=== PATIENT | female | born 1955 | race Caucasian/White ===

== ENCOUNTER 2020-12-11 03:52 | Outpatient (CLI) | payer MEDICARE | END 2020-12-11 03:53 | disposition EMS.NT | LOC: EMS 03:52 | DX: R00.0 Tachycardia, unspecified (principal) ==

== ENCOUNTER 2020-12-11 12:15 | Outpatient (CLI) | payer MEDICARE | END 2020-12-11 12:16 | disposition critical access hospital (66) | LOC: EMS 12:15 | DX: R56.9 Unspecified convulsions (principal) | CPT/HCPCS: A0425; A0429 ==

== ENCOUNTER 2020-12-11 12:39 | Observation (INO) | payer MEDICAID, MEDICARE ==
[2020-12-11] MEDS ORDERED: SODIUM CHLORIDE 0.9% 1,000 ML IV STA (12:48)
[2020-12-11] MEDS ORDERED: LORazepam 2 MG/ML VIAL IVP STA (12:49)
[2020-12-11] MEDS ORDERED: THIAMINE INJ 100 MG in SODIUM CHLORIDE 0.9% 50 ML IV STA (12:49)
[2020-12-11 13:12] LABS: INR 1.2 (0.8-1.2); PT - PROTHROMBIN TIME 13.6 secs (9.9-12.6)
[2020-12-11] MEDS ORDERED: TETANUS/DIPHTHERIA/PERTUSSIS 0.5 ML SYRINGE IM ONE (13:16)
--- NOTE | 2020-12-11 13:17 | ED Physician Documentation ---
History of Present Illness - Stated complaint Stated Complaint: MHE - Chief complaint Chief Complaint: General - History obtained from History obtained from: Patient, EMS - Additonal information Additional information: 65-year-old woman presents by ambulance. Reportedly stopped drinking 3 days ago and had a seizure today. She also complains of abdominal fullness for the last 3 months. She is somewhat confused. Has skin tears on the dorsum of the left hand from the seizure. No other obvious injuries. Review of Systems Unable to obtain: Confused PD PAST MEDICAL HISTORY - Present Medications Home Medications: Ambulatory Orders Medication Instructions Recorded Confirmed Furosemide [Lasix] 40 mg PO DAILY 12/11/20 12/11/20 Spironolactone [Aldactone] 100 mg PO DAILY 12/11/20 12/11/20 amLODIPine [Norvasc] 10 mg PO DAILY 12/11/20 12/11/20 traZODone [Desyrel] 150 mg PO HS 12/11/20 12/11/20 - Allergies Allergies/Adverse Reactions: Allergies Allergy/AdvReac Type Severity Reaction Status Date / Time No Known Drug Allergies Allergy Verified 12/11/20 12:57 PD ED PE NORMAL - Vitals Vital signs reviewed: Yes - General General: Other (Alert and oriented to person and place, she knows the year but not the month or date. She seems slightly confused.) - HEENT HEENT: PERRL, EOMI, Other (Dry mucous membranes) - Neck Neck: Supple, no meningeal sign, No bony TTP - Cardiac Cardiac: RRR, No murmur - Respiratory Respiratory: No respiratory distress, Clear bilaterally - Abdomen Abdomen: Normal bowel sounds, Soft, Other (Somewhat distended with positive fluid wave) - Back Back: No CVA TTP, No spinal TTP - Derm Derm: Normal color, Warm and dry - Extremities Extremities: No deformity (2 skin tears on the dorsum of the left hand), Other (Mild lower extremity pitting pedal edema, symmetric.) - Neuro Neuro: No motor deficit, No sensory deficit, Normal speech Results - Vitals Vitals: Vital Signs - 24 hr 12/11/20 12:54 Temperature 36.7 C Heart Rate 112 H Respiratory 18 Rate Blood Pressure 135/79 H O2 Saturation 99 Oxygen O2 Source Room air - EKG (time done) 1348 Rate: Rate (enter#) (103) Rhythm: Sinus tachycardia (w pacs) [place]: Normal Intervals: Normal SD QRS: Normal Ischemia: Normal ST segments - Labs Labs: Laboratory Tests 12/11/20 12/11/20 12/11/20 13:02 13:02 13:02 WBC 9.0 RBC 4.17 L Hgb 13.4 Hct 37.1 MCV 89.0 MCH 32.1 H MCHC 36.1 H RDW 13.0 Plt Count 120 L MPV 8.9 Neut # (Auto) 8.1 H Lymph # (Auto) 0.3 L [place] # (Auto) 0.5 Eos # (Auto) 0.0 Baso # (Auto) 0.0 Absolute Nucleated RBC 0.00 Nucleated RBC % 0.0 Manual Slide Review Indicated RBC Morph Micro Appear 2+ ANISOCYTOSIS PT 13.6 H INR 1.2 Sodium 124 L Potassium 3.1 L Chloride 84 L Carbon Dioxide 24 Anion Gap 16.0 H BUN 15 Creatinine 0.8 Estimated GFR (MDRD) 72 L Glucose 179 H Calcium 9.4 Phosphorus 2.7 Magnesium 2.0 Total Bilirubin 1.3 H AST 39 ALT 32 Alkaline Phosphatase 48 Troponin I High Sens Total Protein 8.1 Albumin 4.8 Globulin 3.3 Albumin/Globulin Ratio 1.5 Lipase 30 Ethyl Alcohol < 5.0 12/11/20 13:02 WBC RBC Hgb Hct MCV MCH MCHC RDW Plt Count MPV Neut # (Auto) Lymph # (Auto) [place] # (Auto) Eos # (Auto) Baso # (Auto) Absolute Nucleated RBC Nucleated RBC % Manual Slide Review RBC Morph Micro Appear PT INR Sodium Potassium Chloride Carbon Dioxide Anion Gap BUN Creatinine Estimated GFR (MDRD) Glucose Calcium Phosphorus Magnesium Total Bilirubin AST ALT Alkaline Phosphatase Troponin I High Sens 8.5 Total Protein Albumin Globulin Albumin/Globulin Ratio Lipase Ethyl Alcohol Procedures - Laceration (location) L hand Length in cm: 6 Wound type: Superficial (2 skin tears), Clean Wound preparation: Irrigated copiously NS Skin layer closure: Dermabond, Steri strips Other: Tetanus booster given PD MEDICAL DECISION MAKING - ED course ED course: 65-year-old woman with alcoholism altered mental status, seizure this morning related to withdrawal of alcohol. She has mild ascites but also appears to be hypovolemic. Noted to be significantly hyponatremic at 124 of unclear intensity and given the persistent confusion spoke with Dr. Castelan for admission. Departure - Departure Disposition: 66 [facility] DC/Xfer Clinical Impression: Metabolic encephalopathy, Hypokalemia, Hyponatremia Alcohol withdrawal seizure Qualifiers: Complication of substance-induced condition: uncomplicated Qualified Code(s): F10.230 - Alcohol dependence with withdrawal, uncomplicated Condition: Serious Discharge Date/Time: 12/11/20 15:14
[2020-12-11 13:20] LABS: ALBUMIN 4.8 g/dL (3.2-5.5); ALBUMIN/GLOBULIN RATIO 1.5 (1.0-2.2); ALKALINE PHOSPHATASE 48 IU/L (42-121); ALT ALANINE AMINOTRANSFERASE 32 IU/L (10-60); AST ASPARTATE AMINOTRANSFERASE 39 IU/L (10-42); BILIRUBIN,TOTAL 1.3 mg/dL (0.2-1.0); BUN - BLOOD UREA NITROGEN 15 mg/dL (6-20); CALCIUM 9.4 mg/dL (8.5-10.3); CARBON DIOXIDE - CO2 24 mmol/L (21-32); CHLORIDE 84 mmol/L (101-111); CREATININE 0.8 mg/dL (0.4-1.0); ETOH - ETHANOL < 5.0 mg/dL; GFR - MDRD 72 (>89); GLUCOSE 179 mg/dL (70-100); LIPASE 30 U/L (22-51); PHOSPHORUS 2.7 mg/dL (2.5-4.6); POTASSIUM 3.1 mmol/L (3.5-5.0); SODIUM 124 mmol/L (135-145); TOTAL PROTEIN 8.1 g/dL (6.7-8.2)
[2020-12-11 13:27] LABS: BASOPHILS % (AUTO) 0.3 %; EOSINOPHILS % (AUTO) 0.1 %; HCT - HEMATOCRIT 37.1 % (37.0-47.0); HGB - HEMOGLOBIN 13.4 g/dL (12.0-16.0); LYMPHOCYTES # (AUTO) 0.3 10^3/uL (1.5-3.5); LYMPHOCYTES % (AUTO) 3.2 %; MEAN CORPUSCULAR HEMOGLOBIN 32.1 pg (27.0-31.0); MEAN CORPUSCULAR HGB CONC 36.1 g/dL (32.0-36.0); MEAN PLATELET VOLUME 8.9 fL (7.9-10.8); MONOCYTES # (AUTO) 0.5 10^3/uL (0.0-1.0); MONOCYTES % (AUTO) 5.3 %; NEUTROPHILS # (AUTO) 8.1 10^3/uL (1.5-6.6); NEUTROPHILS % (AUTO) 90.5 %; PLT - PLATELET COUNT 120 10^3/uL (130-450); RED BLOOD COUNT 4.17 10^6/uL (4.20-5.40)
[2020-12-11 13:28] LABS: SLIDE REVIEW? Indicated
[2020-12-11 13:50] LABS: RBC MORPHOLOGY (MULTIPLE) 2+ ANISOCYTOSIS (NORMAL)
[2020-12-11] MEDS ORDERED: POTASSIUM CHLORIDE 20 MEQ TABLET PO STA (14:06)
[2020-12-11] MEDS ORDERED: ONDANSETRON ODT 4 MG TABLET TL PRN (14:13)
[2020-12-11] MEDS ORDERED: oxyCODONE 5 MG TABLET PO PRN (14:13)
[2020-12-11] MEDS ORDERED: SODIUM CHLORIDE FLUSH 0.9% 10 ML SYRINGE IVP PRN (14:13)
[2020-12-11] MEDS ORDERED: ACETAMINOPHEN 325 MG TABLET PO PRN (14:13)
[2020-12-11] MEDS ORDERED: ONDANSETRON 4 MG/2 ML VIAL IVP PRN (14:13)
--- NOTE | 2020-12-11 14:25 | HISTORY & PHYSICAL EXAMINATION ---
Chief Complaint - Chief Complaint Chief Complaint: seizure and confusion History of Present Illness - Admitted From Admitted From:: Home via EMS - History Obtained From Records Reviewed: [facility] History obtained from: Dr. Mcmillan Exam Limitations: none - History of Present Illness HPI Comment/Other: 65-year-old white female who is known for past medical history of alcohol abuse. Her social history is complicated in that she has a known history of bipolar disorder with suicidal ideation and also violent behavior toward her daughter when she is in a manic phase. She has been a lifelong drinker for as far back as her daughter can remember. Her favorite alcohol is beer and she will drink at least a sixpack a day, but she will not turn down bloody Nina's (sometimes 2) on top of the beer. She has lived on [facility] since 2010. Before that she was living in [place] and living with her mother off and on. Mom 8 or 9 years ago. With the of her mother, her mental health severely deteriorated and what ever control she had over her bipolar disorder disappeared. When she is not living with her daughter, she will live in a room for rent wherever she can find space. 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 Daughter states that mom is a very private person. She also gets paranoid and feels that someone is out to get her so she does not share a lot of her information with daughter. But by default, daughter is power of erisa attorney. The patient has not seen a physician in quite some time. She states that somehow mom still gets her medicine refilled without seeing a provider. Her prescriptions are filled at [facility]. The daughter states that part of her manic behavior is to suddenly decide something and move forward with that decision. With this current episode, she decided to stop drinking. The last 3 days have been pretty miserable for the family. The patient has not been sleeping, pacing all the time, and needing constant reassurance that someone was nearby. She has not been eating very much or drinking water very much. Even before the decision to stop drinking, the patient was starting to manifest symptoms of withdrawal first thing in the morning. She would wake up with nausea, diaphoresis, tremulousness. It would require a beer straightaway or a bloody Nina straightaway to make all of the symptoms go away. Then she stopped drinking 3 days ago. This morning she was sitting at the table, and her daughter was encouraging her to eat. The patient has a history of traumatic behavior and manipulative behavior so sometimes will pretend to be sick or pretend that she wants to kill herself. This morning she seemed to be tremulous, and with determination started using her right hand to use the fork to possibly stab her left hand. The daughter got up and took the fork out of her right hand. The patient's eyes then rolled back, the patient had a stuttering type of behavior, arms were then drawn up against her chest, elbows flexed, hands clawed and she fell to the floor with a tonic-clonic jerking movement. She has been hospitalized before for alcohol withdrawal seizures in [place] as well as been hospitalized for inpatient psychiatric issues especially when she had suicidal ideation. She was seen by ER physician and temperature is 36 7, pulse is 112, blood pressure 135/79, respirations 18 and 99% on room air. She is confused, slightly tremulous. Dry mucous membranes. Cardiovascular exam benign. 2 skin tears on the dorsum of her left hand and mild lower extremity pitting edema. Sodium is low at 124, potassium was low at 3.1. Anion gap is 16. Random glucose 179. Total bili 1.3. Troponin 8.5. INR is 1.2. White cell count is 9, hemoglobin 13.4. She received 1 mg of Ativan IV and the patient has been somnolent, snoring since then. Potassium orally was ordered but the patient has been too sedated to be able to take it. She is now placed in observation for her seizure, hypokalemia, confusion, hyponatremia. We hope to hydrate her over the next few hours, make sure she does not have another seizure. History - Past Medical History Cardiovascular: reports: Hypertension, High cholesterol, Atrial fibrillation, Murmur Respiratory: reports: None Neuro: reports: Headaches, Tremors Endocrine/Autoimmune: reports: None GI: reports: Cirrhosis (With occasionally her belly blowing up like a balloon) ALLOPATHIC DOCTOR: reports: Other () : reports: None HEENT: reports: None, Dental implants Psych: reports: Bipolar disorder Musculoskeletal: reports: None Derm: reports: None MRSA Hx?: No - Past Surgical History General: reports: Other (ventral hernia repair, [facility]) - Family & Social History Family History Comment/Other: Mom in her 70s of complications of emphysema. Dad in his 80s of unknown type of cancer. She was estranged from him. 2 brothers. Both are alive and have addiction problems. 1 daughter who is healthy without blood pressure, diabetes, heart attack, cancer or stroke. However she has PTSD from growing up with a bipolar mom. Living arrangement: At home Living Situation: With family Social History Notes: She used to smoke heavily and quit 4 years ago. She started smoking as far back as her daughter could remember. Probably in her teen years. She is now addicted to nicotine gum. Alcohol abuse is also been since her teen years. Again at this time it is a sixpack, occasionally 12 a day. Occasionally 2 bloody Nina's a day. 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 The last time she worked was 20 years ago. She was born in [place], then family moved to [place]. She lived in [place] the rest of her life until she came to [facility] in 2010. Her ex- lives on [facility] and. Daughter came to visit him. She then came to visit daughter. Everyone liked it so much they state. - POLST Patient has POLST: No POLST Status: Full Code Meds/Allgy - Home Medications Home Medications: Ambulatory Orders Medication Instructions Recorded Confirmed Furosemide [Lasix] 40 mg PO DAILY 12/11/20 12/11/20 Spironolactone [Aldactone] 100 mg PO DAILY 12/11/20 12/11/20 amLODIPine [Norvasc] 10 mg PO DAILY 12/11/20 12/11/20 traZODone [Desyrel] 150 mg PO HS 12/11/20 12/11/20 - Allergies Allergies/Adverse Reactions: Allergies Allergy/AdvReac Type Severity Reaction Status Date / Time No Known Drug Allergies Allergy Verified 12/11/20 12:57 Review of Systems - Constitutional Constitutional: reports: Other (History and review of systems is from daughter. The patient is somnolent after 1 mg of Ativan.) - Psychiatric Psychiatric: reports: Depression, Anxiety, Suicidal, Delusions, Hallucinations, Homicidal Prior Level of Functionality: The patient lives in her own part of the house with her daughter. She still pays her own bills, reluctantly does her own housekeeping such as changing the sheets and doing laundry. She does limited cooking and does feed herself. She needs to be prompted to take a bath but will do so. Exam - Vital Signs Reviewed Vital Signs: Yes Vital Signs: Vital Signs x48h Temp Pulse Resp BP Pulse Ox 12/11/20 12:54 36.7 C 112 H 18 135/79 H 99 - Physical Exam General Appearance: positive: Lethargic, Other (Somnolent, snoring, white female who looks older than stated age, teeth are removed. Response to sternal rub and will grimace and furrow her brow.) Eyes Bilateral: positive: PERRL (slow to dilate and constrict) ENT: positive: Dry mucous membranes (with open mouth breathing, no teeth), Other (eyebrows pencilled in) Neck: positive: No JVD. negative: Stiff neck Respiratory: positive: No respiratory distress, Other (snoring loudly). negative: Wheezes, Rales, Rhonchi Cardiovascular: positive: Regular rate & rhythm, Systolic murmur. negative: Gallop/S4 Peripheral Pulses: positive: 1+ Abdomen: positive: Non-tender, No organomegaly, Nml bowel sounds, No distention Skin: positive: Warm, Dry, Pallor Extremities: positive: Full ROM, No pedal edema Neurologic/Psychiatric: positive: Motor nml (She withdraws both hands, both feet to noxious stimuli. There does not appear to be evidence of plegia.), Other ( unresponsive to voice but does respond to painful stimuli.) Conclusion/Plan - Problem List (1) Metabolic encephalopathy Conclusion/Plan: Due to seizure, hyponatremia, possible brain effects of alcohol abuse, As well as the Ativan in the ER. Plan: Observation status Banana bag Observe for seizures and withdrawal (2) Alcohol withdrawal seizure Conclusion/Plan: Neuro evaluation every 8 hours No seizure medication at this time since irritation to the brain is identified as alcohol withdrawal Librium 25 mg every 6 hours as a scheduled dose initially ordered but then she is so sleeping w 1 mg ativan, not swallowing. Change to ativan 0.5 mg q6h prn Qualifiers: Complication of substance-induced condition: uncomplicated Qualified Code(s): F10.230 - Alcohol dependence with withdrawal, uncomplicated; R56.9 - Unspecified convulsions (3) Hyponatremia Conclusion/Plan: Due to alcoholic liver disease, possible dehydration. Plan, hydrate, reassess in a.m. (4) Hypokalemia Conclusion/Plan: Initially I ordered 40 mEq p.o. now and at 8 hours. Repeat levels tomorrow morning. But since she is not awake to swallow, we will give her K rider. (5) Bipolar 1 disorder with moderate jones Conclusion/Plan: Most of her history today is obtained from the daughter. Daughter surprised to note that there is no medication for bipolar disorder. She thought the trazodone was for that. I explained trazodone to use. It is not a bipolar medication. It can be using a bipolar disorder but is not used to treat bipolar disorder. The patient is somnolent from the Ativan given in the ER. - Lab Results Lab results reviewed: Yes Talib Bones: 12/11/20 13:02 12/11/20 13:02 - Diagnostic Imaging Results Diagnostic Imaging Results: positive: Final report reviewed Core Measures - Anticipated LOS I expect patient to be DC'd or transferred within 96 hours.: Yes - DVT/VTE - Prophylaxis VTE/DVT Device ordered at admit?: Yes
[2020-12-11] MEDS ORDERED: LACTATED RINGERS 1,000 ML IV SCH (15:00)
[2020-12-11 15:57] LABS: B. PARAPERTUSSIS- RESP PCR PAN NOT DETECTED; B. PERTUSSIS- RESP PCR PANEL NOT DETECTED; C. PNEUMONIAE- RESP PCR PANEL NOT DETECTED; CORONAVIRUS 229E-RESP PCR NOT DETECTED; CORONAVIRUS HKU1-RESP PCR NOT DETECTED; CORONAVIRUS NL63-RESP PCR NOT DETECTED; CORONAVIRUS OC43-RESP PCR NOT DETECTED; HUMAN METAPNEUMOVIRUS NOT DETECTED; INFLUENZA A- RESP PCR PANEL NOT DETECTED; INFLUENZA B - RESP PCR PANEL NOT DETECTED; M. PNEUMONIAE- RESP PCR PANEL NOT DETECTED; PARAINFLUENZA VIRUS 1 NOT DETECTED; PARAINFLUENZA VIRUS 2 NOT DETECTED; PARAINFLUENZA VIRUS 3 NOT DETECTED; PARAINFLUENZA VIRUS 4 NOT DETECTED; RHINOVIRUS/ENTEROVIRUS NOT DETECTED; RSV- RESP PCR PANEL NOT DETECTED; SARS-CoV-2 -RESP PCR PANEL NOT DETECTED
--- NOTE | 2020-12-11 16:34 | PHARMACY PROGRESS NOTE ---
- Best Possible Medication History Admit Date and Time: 12/11/20 1413 Processed by: Nursing Medication History completed: Yes As the person ultimately responsible for medication therapy, providers are able to order a medication from an existing home medication list in [facility] via the "Reconcile Routine" prior to Confirmation of that medication by java support engineer. Such practice is discouraged except when the physician, in their clinical judgment, deems that a medical need exists for a medication without regard to previous use.
[2020-12-11] MEDS: chlordiazePOXIDE 25 MG CAPSULE PO SCH (17:29)
[2020-12-11] MEDS: SODIUM CHLORIDE FLUSH 0.9% 10 ML SYRINGE IVP SCH (17:31)
[2020-12-11] MEDS ORDERED: MULTIVITAMIN 10 ML, FOLIC ACID INJ 1 MG, THIAMINE INJ 100 MG, MAGNESIUM SULFATE 2 GM in... IV SCH ×5 (18:14)
[2020-12-11 18:33] LABS: MUDS CUTOFF CONCENTRATIONS CUTOFF CONC BELOW:
[2020-12-11 18:35] LABS: BILIRUBIN,URINE NEGATIVE (NEGATIVE); GLUCOSE, URINE (UA) NEGATIVE (NEGATIVE); KETONES,URINE (UA) NEGATIVE (NEGATIVE); LEUKOCYTE ESTERASE, URINE NEGATIVE (NEGATIVE); NITRITE,URINE NEGATIVE (NEGATIVE); OCCULT BLOOD,URINE TRACE-INTA (NEGATIVE); PROTEIN,URINE NEGATIVE (NEGATIVE); UROBILINOGEN,URINE 0.2 (NORMAL) E.U./dL (NORMAL)
[2020-12-11 18:38] LABS: CLARITY,URINE CLEAR (CLEAR)
[2020-12-11] MEDS: POTASSIUM CHLOR 10 MEQ/100 ML 10 MEQ/100 ML BAG IV SCH ×4 (18:44→22:52)
[2020-12-11 18:51] LABS: AMPHETAMINE SCREEN,URINE NEGATIVE (NEGATIVE); BARBITURATE SCREEN,UR NEGATIVE (NEGATIVE); BENZODIAZEPINES SCREEN, URINE POSITIVE (NEGATIVE); COCAINE SCREEN URINE NEGATIVE (NEGATIVE); METHADONE SCREEN, URINE NEGATIVE (NEGATIVE); METHAMPHETAMINES SCREEN, URINE NEGATIVE (NEGATIVE); OPIATE SCREEN, URINE NEGATIVE (NEGATIVE); OXYCODONE SCREEN, URINE NEGATIVE (NEGATIVE); PROPOXYPHENE SCREEN, URINE NEGATIVE (NEGATIVE); THC CANNABINOID SCREEN, URINE POSITIVE (NEGATIVE); TRICYCLIC ANTIDEPRESSANT,URINE NEGATIVE (NEGATIVE)
[2020-12-11] MEDS ORDERED: traZODone 50 MG TABLET PO SCH (21:00)
[2020-12-12] MEDS: chlordiazePOXIDE 25 MG CAPSULE PO SCH ×3 (01:04→11:37)
[2020-12-12] MEDS: SODIUM CHLORIDE FLUSH 0.9% 10 ML SYRINGE IVP SCH ×2 (01:05→08:35)
[2020-12-12 05:25] LABS: BASOPHILS % (AUTO) 0.4 %; EOSINOPHILS # (AUTO) 0.1 10^3/uL (0.0-0.7); EOSINOPHILS % (AUTO) 2.1 %; HCT - HEMATOCRIT 30.7 % (37.0-47.0); HGB - HEMOGLOBIN 11.1 g/dL (12.0-16.0); LYMPHOCYTES # (AUTO) 0.6 10^3/uL (1.5-3.5); LYMPHOCYTES % (AUTO) 10.7 %; MEAN CORPUSCULAR HEMOGLOBIN 33.5 pg (27.0-31.0); MEAN CORPUSCULAR HGB CONC 36.2 g/dL (32.0-36.0); MEAN CORPUSCULAR VOLUME 92.7 fL (81.0-99.0); MEAN PLATELET VOLUME 9.1 fL (7.9-10.8); MONOCYTES # (AUTO) 0.5 10^3/uL (0.0-1.0); MONOCYTES % (AUTO) 9.6 %; PLT - PLATELET COUNT 96 10^3/uL (130-450); RED BLOOD COUNT 3.31 10^6/uL (4.20-5.40); RED CELL DISTRIBUTION WIDTH 13.2 % (12.0-15.0); WHITE BLOOD COUNT 5.2 x10^3/uL (4.8-10.8)
[2020-12-12 05:31] LABS: CALCIUM 8.3 mg/dL (8.5-10.3); CREATININE 0.8 mg/dL (0.4-1.0); POTASSIUM 3.3 mmol/L (3.5-5.0)
[2020-12-12] MEDS ORDERED: POTASSIUM CHLORIDE 20 MEQ TABLET PO ONE (07:42)
[2020-12-12] MEDS ORDERED: MULTIVITAMIN 10 ML, FOLIC ACID INJ 1 MG, THIAMINE INJ 100 MG, MAGNESIUM SULFATE 2 GM in... IV SCH ×5 (09:00)
[2020-12-12] MEDS ORDERED: SPIRONOLACTONE 25 MG TABLET PO SCH (09:00)
[2020-12-12] MEDS ORDERED: polyethylene glycoL 3350 17 GM PACKET PO SCH (09:00)
[2020-12-12] MEDS ORDERED: amLODIPine 5 MG TABLET PO SCH (09:00)
[2020-12-12] MEDS ORDERED: FOLIC ACID 1 MG TABLET PO SCH (11:00)
[2020-12-12] MEDS ORDERED: THIAMINE 100 MG TABLET PO SCH (11:00)
[2020-12-12 12:47] VITALS: BP 138/62
--- NOTE | 2020-12-12 13:36 | Discharge Plan ---
Discharge Plan Problem Reviewed?: Yes Disposition: Home, Self Care Condition: Good Prescriptions: Folic Acid 1 mg PO DAILY #30 tablet Thiamine [Vitamin B-1] 100 mg PO DAILY #30 tablet Diet: Regular Activity Restrictions: Activity as Tolerated Shower Restrictions: No Driving Restrictions: Yes (no driving) Health Concerns: You presented to our emergency room with a witnessed seizure at home. You are an alcoholic and stopped drinking about 3 days before admission but had been tapering down for at least 2 weeks. In the emergency room you were lethargic, sleepy, still confused, with a low sodium and low potassium. We placed you in observation status. Plan of Treatment: 1. We initially thought that you may have to go through withdrawal but you only received 1 dose of a sedative and you have been fine throughout the rest of your stay. No tremors, sweating, high blood pressure or fast heart rate were exhib ited. 2. Because of your alcohol abuse, we would recommend that you take thiamine and folate on a regular basis. That has been called into your pharmacy. 3. Part of the problem over the last few days has been exacerbation of your baseline bipolar disorder. You have not been able to sleep for 3 days. While here, you slept for several hours. We have recommended that you resumed outpatient therapy with a mental health professional. Continue trazodone. Social work has worked with you and has given you the name of a clinic and you have promised to follow through on starting regular mental health care through them. 4. We did discuss advance care directives with you. You state that you do want everything done to resuscitate you in the event that you stop breathing or your heart stops. You also state that if you have declined femur alcoholism and bipolar disorder, you are willing to be placed in a correction facility for long-term care if you can no longer take care of yourself. 5. We would recommend that you have your daughter listed as your emergency contact, and DURABLE POWER OF GANTRY RIGGER. It would make it easier for her to help take care of you. And to discuss your case with your doctors. Unfortunately, when you were brought in, you were unconscious. We had to ask her lots of questions and she did not know the answers to them because she does not know anything about your care. Please share with her your doctors names, plan of care so that if you are in the same situation again, she has a better ability to answer questions. Care Goals: To stop drinking alcohol permanently, to have regular mental health care, to be stable emotionally. Assessment: Patient states she understands care goals and promises to follow through. No Smoking: If you smoke, Please STOP! Call for help. Follow-up with: Jose Lowry MD [Provider Admit Priv/Credential] -
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
== END 2020-12-12 15:01 | disposition home or self-care (01) ==
LOC: EDUNIT# → ED 12:39 → MS2 14:13
PROVIDERS: ADMIT Specialist; ATTEND Specialist
DX: G93.41 Metabolic encephalopathy (principal); E87.1 Hypo-osmolality and hyponatremia; F10.230 Alcohol dependence with withdrawal, uncomplicated; G40.89 Other seizures; Z20.822 Contact with and (suspected) exposure to COVID-19; E87.6 Hypokalemia; F31.9 Bipolar disorder, unspecified; I10 Essential (primary) hypertension; K74.60 Unspecified cirrhosis of liver; Z87.891 Personal history of nicotine dependence
CPT/HCPCS: 12002; 36415; 51701; 80048; 80053; 80306; 81003; 83690; 83735; 84100; 84484; 85025; 85610; 87631; 90471; 90715; 93005; 96365; 96366; 96367; 96368; 96375; 96376; 99285; A9270; G0378; G0480; J2060; J3411; J7040; 0202U; 80320; 81001; 87086

== ENCOUNTER 2020-12-26 15:17 | Outpatient (CLI) | payer MEDICARE, OTHER | END 2020-12-26 15:18 | disposition critical access hospital (66) | LOC: EMS 15:17 | DX: Z76.89 Persons encountering health services in other specified circumstances (principal) | CPT/HCPCS: A0425; A0429 ==

== ENCOUNTER 2020-12-26 15:38 | Emergency (ER) | payer MEDICARE ==
[2020-12-26] MEDS ORDERED: OLANZapine ODT 5 MG TABLET TL STA (15:51)
--- NOTE | 2020-12-26 15:52 | ED Physician Documentation ---
PD HPI MHE - Stated complaint Stated Complaint: ANXIETY - Chief complaint Chief Complaint: MHE - History obtained from History obtained from: Patient, EMS - History of Present Illness Primary symptom: Aggressive behavior Pain level max: 0 Pain level now: 0 Similar symptoms before: Diagnosis (bipolar) - Additional information Additional information: 65-year-old female presents to the emergency department brought in by EMS today. They state that she has a history of bipolar disease and has been having increased aggressive behavior at home. Increased pressured speech. Increased paranoia believing that people in the neighborhood are "out to get her". Unknown if she is taking her medications or not. 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 () : None HEENT: None, Dental implants Psych: Bipolar disorder Musculoskeletal: None Derm: None - Past Surgical History Past Surgical History: Yes General: Other (ventral hernia repair, [facility]) - Present Medications Home Medications: Ambulatory Orders Medication Instructions Recorded Confirmed Furosemide [Lasix] 40 mg PO DAILY 12/11/20 12/26/20 Spironolactone [Aldactone] 100 mg PO DAILY 12/11/20 12/26/20 amLODIPine [Norvasc] 10 mg PO DAILY 12/11/20 12/26/20 traZODone [Desyrel] 150 mg PO HS 12/11/20 12/26/20 Folic Acid 1 mg PO DAILY #30 tablet 12/12/20 12/26/20 Thiamine [Vitamin B-1] 100 mg PO DAILY #30 tablet 12/12/20 12/26/20 - Allergies Allergies/Adverse Reactions: Allergies Allergy/AdvReac Type Severity Reaction Status Date / Time No Known Drug Allergies Allergy Verified 12/26/20 15:49 - Social History Does the pt smoke?: No Smoking Status: Never smoker Does the pt drink ETOH?: Yes Does the pt have substance abuse?: No - Immunizations Immunizations are current?: Yes - POLST Patient has POLST: No POLST Status: Full Code PD ED PE NORMAL - Vitals Vital signs reviewed: Yes - General General: Alert and oriented X 3, No acute distress, Well developed/nourished - HEENT HEENT: Atraumatic, PERRL, Moist mucous membranes - Neck Neck: Supple, no meningeal sign - Cardiac Cardiac: RRR, Strong equal pulses - Respiratory Respiratory: No respiratory distress, Clear bilaterally - Abdomen Abdomen: Soft, Non tender, Non distended - Derm Derm: Warm and dry, No rash - Extremities Extremities: No edema, No calf tenderness / cord - Neuro Neuro: Alert and oriented X 3 - Psych Psych: Other (Patient is hyperverbal and very paranoid. She believes that people are stealing her money. She believes that her daughter is trying to steal her Inheritance) Results - Vitals Vitals: Vital Signs - 24 hr 12/26/20 12/26/20 15:45 19:40 Temperature 37.4 C 36.7 C Heart Rate 120 H 102 H Respiratory 14 16 Rate Blood Pressure 178/85 H 138/59 H O2 Saturation 98 97 Oxygen O2 Source Room air - Labs Labs: Laboratory Tests 12/26/20 12/26/20 12/26/20 15:58 15:58 15:58 WBC 12.8 H RBC 4.33 Hgb 14.1 Hct 38.9 MCV 89.8 MCH 32.6 H MCHC 36.2 H RDW 11.9 L Plt Count 188 MPV 8.7 Neut # (Auto) 11.6 H Lymph # (Auto) 0.5 L Gallia # (Auto) 0.6 Eos # (Auto) 0.0 Baso # (Auto) 0.1 Absolute Nucleated RBC 0.00 Nucleated RBC % 0.0 Sodium 130 L Potassium 2.7 L Chloride 91 L Carbon Dioxide 25 Anion Gap 14.0 H BUN 13 Creatinine 1.2 H Estimated GFR (MDRD) 45 L Glucose 173 H Calcium 9.7 Phosphorus Magnesium Total Bilirubin 1.2 H AST 43 H ALT 42 Alkaline Phosphatase 61 Total Protein 8.0 Albumin 4.5 Globulin 3.5 Albumin/Globulin Ratio 1.3 Lipase 31 TSH 2.38 Urine Color Urine Clarity Urine pH Ur Specific [place]isen[place] Urine Protein Urine Glucose (UA) Urine Ketones Urine Occult Blood Urine Nitrite Urine Bilirubin Urine Urobilinogen Ur Leukocyte Esterase Ur Microscopic Review Urine Culture Comments Nasal Adenovirus (PCR) Nasal B. parapertussis DNA (PCR) Nasal Coronavir 229E PCR Nasal Coronavir HKU1 PCR Nasal Coronavir NL63 PCR Nasal Coronavir OC43 PCR Nasal Enterovir/Rhinovir PCR Nasal Influenza B PCR Nasal Influenza A PCR Nasal Parainfluen 1 PCR Nasal Parainfluen 2 PCR Nasal Parainfluen 3 PCR Nasal Parainfluen 4 PCR Nasal RSV (PCR) Nasal B.pertussis DNA PCR Nasal C.pneumoniae (PCR) Sameer Human Metapneumo PCR Nasal M.pneumoniae (PCR) Nasal SARS-CoV-2 (PCR) Salicylates < 6.0 Urine Opiates Screen Ur Oxycodone Screen Urine Methadone Screen Ur Propoxyphene Screen Acetaminophen < 10 L Ur Barbiturates Screen Ur Tricyclics Screen Ur Phencyclidine Scrn Ur Amphetamine Screen U Methamphetamines Scrn U Benzodiazepines Scrn Urine Cocaine Screen U Cannabinoids Screen Ethyl Alcohol < 5.0 12/26/20 12/26/20 12/26/20 15:58 16:39 18:00 WBC RBC Hgb Hct MCV MCH MCHC RDW Plt Count MPV Neut # (Auto) Lymph # (Auto) Gallia # (Auto) Eos # (Auto) Baso # (Auto) Absolute Nucleated RBC Nucleated RBC % Sodium Potassium Chloride Carbon Dioxide Anion Gap BUN Creatinine Estimated GFR (MDRD) Glucose Calcium Phosphorus 2.4 L Magnesium 1.6 L Total Bilirubin AST ALT Alkaline Phosphatase Total Protein Albumin Globulin Albumin/Globulin Ratio Lipase TSH Urine Color YELLOW Urine Clarity CLEAR Urine pH 7.0 Ur Specific [place] 1.010 Urine Protein NEGATIVE Urine Glucose (UA) NEGATIVE Urine Ketones NEGATIVE Urine Occult Blood NEGATIVE Urine Nitrite NEGATIVE Urine Bilirubin NEGATIVE Urine Urobilinogen 0.2 (NORMAL) Ur Leukocyte Esterase NEGATIVE Ur Microscopic Review NOT INDICATED Urine Culture Comments NOT INDICATED Nasal Adenovirus (PCR) NOT DETECTED Nasal B. parapertussis DNA (PCR) NOT DETECTED Nasal Coronavir 229E PCR NOT DETECTED Nasal Coronavir HKU1 PCR NOT DETECTED Nasal Coronavir NL63 PCR NOT DETECTED Nasal Coronavir OC43 PCR NOT DETECTED Nasal Enterovir/Rhinovir PCR NOT DETECTED Nasal Influenza B PCR NOT DETECTED Nasal Influenza A PCR NOT DETECTED Nasal Parainfluen 1 PCR NOT DETECTED Nasal Parainfluen 2 PCR NOT DETECTED Nasal Parainfluen 3 PCR NOT DETECTED Nasal Parainfluen 4 PCR NOT DETECTED Nasal RSV (PCR) NOT DETECTED Nasal B.pertussis DNA PCR NOT DETECTED Nasal C.pneumoniae (PCR) NOT DETECTED Sameer Human Metapneumo PCR NOT DETECTED Nasal M.pneumoniae (PCR) NOT DETECTED Nasal SARS-CoV-2 (PCR) NOT DETECTED Salicylates Urine Opiates Screen NEGATIVE Ur Oxycodone Screen NEGATIVE Urine Methadone Screen NEGATIVE Ur Propoxyphene Screen NEGATIVE Acetaminophen Ur Barbiturates Screen NEGATIVE Ur Tricyclics Screen NEGATIVE Ur Phencyclidine Scrn NEGATIVE Ur Amphetamine Screen NEGATIVE U Methamphetamines Scrn NEGATIVE U Benzodiazepines Scrn POSITIVE H Urine Cocaine Screen NEGATIVE U Cannabinoids Screen NEGATIVE Ethyl Alcohol PD MEDICAL DECISION MAKING - ED course Complexity details: reviewed results, re-evaluated patient, considered differential, d/w patient ED course: 65-year-old female with a history of bipolar disorder appears extremely manic in the emergency department. She is paranoid, hyperverbal and obsessed with people stealing her money. She was given a dose of 5 mg Zyprexa here and actually im proved quite a bit. Her state is still hyperverbal but less than original. She is still paranoid as well. Originally she refused psychiatric care, but after medication she agrees to psychiatric care. Telepsychiatry was consulted Dr. Reardon, he recommends inpatient placement. He states that if she should change her mind, [facility] should be contacted for involuntary placement. We will start the patient on Zyprexa 5 mg p.o. twice daily. Patient had multiple electrolyte abnormalities, she is chronically hyponatremic given her history of liver disease. Her potassium was replaced and magnesium replaced. Also given IV fluids. Patient is medically clear for psychiatric care. Patient signed out to the [facility] emergency department physician. This document was made in part using voice recognition software. While efforts are made to proofread this document, sound alike and grammatical errors may occur. Departure - Departure Clinical Impression: Nita, Bipolar 1 disorder, Hypokalemia, Hyponatremia, Hypomagnesemia Condition: Stable
[2020-12-26 16:03] LABS: BASOPHILS # (AUTO) 0.1 10^3/uL (0.0-0.1); BASOPHILS % (AUTO) 0.5 %; EOSINOPHILS % (AUTO) 0.2 %; HCT - HEMATOCRIT 38.9 % (37.0-47.0); HGB - HEMOGLOBIN 14.1 g/dL (12.0-16.0); LYMPHOCYTES # (AUTO) 0.5 10^3/uL (1.5-3.5); LYMPHOCYTES % (AUTO) 3.5 %; MEAN CORPUSCULAR HEMOGLOBIN 32.6 pg (27.0-31.0); MEAN CORPUSCULAR HGB CONC 36.2 g/dL (32.0-36.0); MEAN CORPUSCULAR VOLUME 89.8 fL (81.0-99.0); MEAN PLATELET VOLUME 8.7 fL (7.9-10.8); MONOCYTES # (AUTO) 0.6 10^3/uL (0.0-1.0); MONOCYTES % (AUTO) 4.6 %; NEUTROPHILS # (AUTO) 11.6 10^3/uL (1.5-6.6); NEUTROPHILS % (AUTO) 90.9 %; PLT - PLATELET COUNT 188 10^3/uL (130-450); RED BLOOD COUNT 4.33 10^6/uL (4.20-5.40); RED CELL DISTRIBUTION WIDTH 11.9 % (12.0-15.0); WHITE BLOOD COUNT 12.8 x10^3/uL (4.8-10.8)
--- OUTSIDE RECORDS SUMMARY | 2020-12-26 16:04 | EXTERNAL MEDICAL SUMMARY RPT | Continuity of Care Document ---
:1955 Demographics Phone Unavailable Preferred Language Unknown Marital Status Unknown Roman Catholic Affiliation Unknown Race Unknown Ethnic Group Unknown Author Organization [place] Address [address] [place] [address] Phone Allergies Encounters Medications Problems Results
[2020-12-26 16:19] LABS: ACETAMINOPHEN < 10 ug/mL (10-30); ALBUMIN 4.5 g/dL (3.2-5.5); ALBUMIN/GLOBULIN RATIO 1.3 (1.0-2.2); ALKALINE PHOSPHATASE 61 IU/L (42-121); ALT ALANINE AMINOTRANSFERASE 42 IU/L (10-60); AST ASPARTATE AMINOTRANSFERASE 43 IU/L (10-42); BILIRUBIN,TOTAL 1.2 mg/dL (0.2-1.0); BUN - BLOOD UREA NITROGEN 13 mg/dL (6-20); CALCIUM 9.7 mg/dL (8.5-10.3); CARBON DIOXIDE - CO2 25 mmol/L (21-32); CHLORIDE 91 mmol/L (101-111); CREATININE 1.2 mg/dL (0.4-1.0); ETOH - ETHANOL < 5.0 mg/dL; GFR - MDRD 45 (>89); GLUCOSE 173 mg/dL (70-100); LIPASE 31 U/L (22-51); POTASSIUM 2.7 mmol/L (3.5-5.0); SALICYLATE < 6.0 mg/dL; SODIUM 130 mmol/L (135-145)
[2020-12-26] MEDS ORDERED: SODIUM CHLORIDE 0.9% 1,000 ML IV STA (17:30)
[2020-12-26] MEDS ORDERED: POTASSIUM CHLORIDE 20 MEQ TABLET PO STA (17:30)
[2020-12-26 17:44] LABS: B. PARAPERTUSSIS- RESP PCR PAN NOT DETECTED; B. PERTUSSIS- RESP PCR PANEL NOT DETECTED; C. PNEUMONIAE- RESP PCR PANEL NOT DETECTED; CORONAVIRUS 229E-RESP PCR NOT DETECTED; CORONAVIRUS HKU1-RESP PCR NOT DETECTED; CORONAVIRUS NL63-RESP PCR NOT DETECTED; CORONAVIRUS OC43-RESP PCR NOT DETECTED; HUMAN METAPNEUMOVIRUS NOT DETECTED; INFLUENZA A- RESP PCR PANEL NOT DETECTED; INFLUENZA B - RESP PCR PANEL NOT DETECTED; M. PNEUMONIAE- RESP PCR PANEL NOT DETECTED; PARAINFLUENZA VIRUS 1 NOT DETECTED; PARAINFLUENZA VIRUS 2 NOT DETECTED; PARAINFLUENZA VIRUS 3 NOT DETECTED; PARAINFLUENZA VIRUS 4 NOT DETECTED; RHINOVIRUS/ENTEROVIRUS NOT DETECTED; RSV- RESP PCR PANEL NOT DETECTED; SARS-CoV-2 -RESP PCR PANEL NOT DETECTED
[2020-12-26 17:46] LABS: MAGNESIUM 1.6 mg/dL (1.7-2.8); PHOSPHORUS 2.4 mg/dL (2.5-4.6)
[2020-12-26] MEDS ORDERED: MAGNESIUM SULFATE 2 GRAM 2 GM/50 ML BAG IV ONE (18:05)
[2020-12-26 18:19] LABS: MUDS CUTOFF CONCENTRATIONS CUTOFF CONC BELOW:
[2020-12-26 18:22] LABS: BILIRUBIN,URINE NEGATIVE (NEGATIVE); GLUCOSE, URINE (UA) NEGATIVE (NEGATIVE); KETONES,URINE (UA) NEGATIVE (NEGATIVE); LEUKOCYTE ESTERASE, URINE NEGATIVE (NEGATIVE); NITRITE,URINE NEGATIVE (NEGATIVE); OCCULT BLOOD,URINE NEGATIVE (NEGATIVE); PROTEIN,URINE NEGATIVE (NEGATIVE); UROBILINOGEN,URINE 0.2 (NORMAL) E.U./dL (NORMAL)
[2020-12-26 18:23] LABS: CLARITY,URINE CLEAR (CLEAR)
[2020-12-26 18:31] LABS: AMPHETAMINE SCREEN,URINE NEGATIVE (NEGATIVE); BARBITURATE SCREEN,UR NEGATIVE (NEGATIVE); BENZODIAZEPINES SCREEN, URINE POSITIVE (NEGATIVE); COCAINE SCREEN URINE NEGATIVE (NEGATIVE); METHADONE SCREEN, URINE NEGATIVE (NEGATIVE); METHAMPHETAMINES SCREEN, URINE NEGATIVE (NEGATIVE); OPIATE SCREEN, URINE NEGATIVE (NEGATIVE); OXYCODONE SCREEN, URINE NEGATIVE (NEGATIVE); PROPOXYPHENE SCREEN, URINE NEGATIVE (NEGATIVE); THC CANNABINOID SCREEN, URINE NEGATIVE (NEGATIVE); TRICYCLIC ANTIDEPRESSANT,URINE NEGATIVE (NEGATIVE)
[2020-12-26] MEDS ORDERED: ACETAMINOPHEN 325 MG TABLET PO STA (20:25)
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
[2020-12-27] MEDS ORDERED: LORazepam 1 MG TABLET PO STA (02:12)
[2020-12-27] MEDS ORDERED: ACETAMINOPHEN 325 MG TABLET PO STA ×3 (02:12→16:28)
[2020-12-27] MEDS: OLANZapine ODT 5 MG TABLET TL SCH ×2 (08:17→20:38)
[2020-12-27 11:16] LABS: CALCIUM 8.8 mg/dL (8.5-10.3); CREATININE 0.9 mg/dL (0.4-1.0); POTASSIUM 3.5 mmol/L (3.5-5.0)
[2020-12-27] MEDS ORDERED: ACETAMINOPHEN 325 MG TABLET PO PRN (16:28)
--- NOTE | 2020-12-27 16:49 | ED Physician Documentation ---
ED Addendum - Addendum Addendum: 12/27/20 16:49 Shannon haywood requested repeat labs which were done and improved. They accepted her under the care of Dr. José Antonio Yates. Cobras were completed. She is stable for transport to psychiatric facility Diagnoses: 1. Bipolar type I disorder 2. Nita 3. Hypomagnesemia Number #5 hyponatremia
[2020-12-27] MEDS ORDERED: traZODone 50 MG TABLET PO SCH (21:00)
[2020-12-28] MEDS ORDERED: DOCUSATE SODIUM 100 MG CAPSULE PO STA (07:16)
[2020-12-28] MEDS: OLANZapine ODT 5 MG TABLET TL SCH (08:42)
[2020-12-28 09:11] VITALS: BP 150/89
[2020-12-28] MEDS ORDERED: ACETAMINOPHEN 325 MG TABLET PO STA (09:17)
== END 2020-12-28 09:32 ==
LOC: EDUNIT# → ED 15:38 → SUPCPDRO 15:38 → ED 12-28 09:32
DX: F31.9 Bipolar disorder, unspecified (principal); E87.6 Hypokalemia; E87.1 Hypo-osmolality and hyponatremia; E83.42 Hypomagnesemia; I10 Essential (primary) hypertension; I48.91 Unspecified atrial fibrillation; Z20.822 Contact with and (suspected) exposure to COVID-19
CPT/HCPCS: 36415; 80048; 80053; 80306; 80307; 81003; 83690; 83735; 84100; 84443; 85025; 87631; 93005; 96365; 96366; 99283; 99285; A9270; G0426; G0480; J8499; Q3014; 0202U; 80320; 80329; 81001; 87086

== ENCOUNTER 2021-05-29 17:12 | Outpatient (CLI) | payer MEDICAID | END 2021-05-29 17:13 | disposition critical access hospital (66) | LOC: EMS 17:12 | DX: F41.9 Anxiety disorder, unspecified (principal) | CPT/HCPCS: A0425; A0429; A0999 ==

== ENCOUNTER 2021-05-29 17:35 | Inpatient (IN) | payer MEDICARE, MEDICAID ==
[2021-05-29 17:56] LABS: BASOPHILS % (AUTO) 0.4 %; EOSINOPHILS # (AUTO) 0.1 10^3/uL (0.0-0.7); EOSINOPHILS % (AUTO) 0.9 %; HCT - HEMATOCRIT 36.2 % (37.0-47.0); HGB - HEMOGLOBIN 13.5 g/dL (12.0-16.0); LYMPHOCYTES # (AUTO) 0.6 10^3/uL (1.5-3.5); LYMPHOCYTES % (AUTO) 5.8 %; MEAN CORPUSCULAR HEMOGLOBIN 30.3 pg (27.0-31.0); MEAN CORPUSCULAR HGB CONC 37.3 g/dL (32.0-36.0); MEAN CORPUSCULAR VOLUME 81.3 fL (81.0-99.0); MONOCYTES # (AUTO) 0.6 10^3/uL (0.0-1.0); MONOCYTES % (AUTO) 5.5 %; NEUTROPHILS # (AUTO) 8.9 10^3/uL (1.5-6.6); NEUTROPHILS % (AUTO) 86.8 %; PLT - PLATELET COUNT 114 10^3/uL (130-450); RED BLOOD COUNT 4.45 10^6/uL (4.20-5.40); RED CELL DISTRIBUTION WIDTH 12.7 % (12.0-15.0); WHITE BLOOD COUNT 10.2 x10^3/uL (4.8-10.8)
[2021-05-29 18:11] LABS: MUDS CUTOFF CONCENTRATIONS CUTOFF CONC BELOW:
[2021-05-29 18:13] LABS: ACETAMINOPHEN < 10 ug/mL (10-30); ALBUMIN 4.3 g/dL (3.2-5.5); ALBUMIN/GLOBULIN RATIO 1.2 (1.0-2.2); ALKALINE PHOSPHATASE 63 IU/L (42-121); ALT ALANINE AMINOTRANSFERASE 58 IU/L (10-60); AST ASPARTATE AMINOTRANSFERASE 60 IU/L (10-42); BILIRUBIN,TOTAL 0.9 mg/dL (0.2-1.0); BUN - BLOOD UREA NITROGEN 8 mg/dL (6-20); CALCIUM 8.9 mg/dL (8.5-10.3); CARBON DIOXIDE - CO2 19 mmol/L (21-32); CHLORIDE 85 mmol/L (101-111); CREATININE 0.7 mg/dL (0.4-1.0); ETOH - ETHANOL 77.6 mg/dL; GFR - MDRD 84 (>89); GLUCOSE 160 mg/dL (70-100); LIPASE 50 U/L (22-51); POTASSIUM 3.7 mmol/L (3.5-5.0); SALICYLATE < 6.0 mg/dL; SODIUM 121 mmol/L (135-145); TOTAL PROTEIN 7.8 g/dL (6.7-8.2)
[2021-05-29 18:16] LABS: BILIRUBIN,URINE NEGATIVE (NEGATIVE); GLUCOSE, URINE (UA) NEGATIVE (NEGATIVE); KETONES,URINE (UA) TRACE mg/dL (NEGATIVE); LEUKOCYTE ESTERASE, URINE NEGATIVE (NEGATIVE); NITRITE,URINE NEGATIVE (NEGATIVE); OCCULT BLOOD,URINE SMALL (NEGATIVE); PROTEIN,URINE NEGATIVE (NEGATIVE); UROBILINOGEN,URINE 1 (NORMAL) E.U./dL (NORMAL)
--- NOTE | 2021-05-29 18:16 | ED Physician Documentation ---
History of Present Illness - Stated complaint Stated Complaint: ANXIETY - Chief complaint Chief Complaint: MHE - Additonal information Additional information: 65-year-old female who has a longstanding history of anxiety and depression presents the emergency department for evaluation of worsening anxiety over the last 4 to 5 days. She reports that approximately 1 month ago her primary care provider took her off of the trazodone. She reports she been on the trazodone for years. Now she feels like her anxiety is out of control. She denies thoughts of harm to self or others but she does desire psychiatric hospitalization for stabilization of her anxiety. She did drink 3 beers today in an attempt to reduce her anxiety. She also has had 3 Mountain Dew's as well as chewing on nicotine gum. She denies thoughts of harm to herself or others. She does present as hyperverbal and with a mild tremor. She denies chest pain or shortness of air. Review of Systems Constitutional: denies: Fever, Chills Eyes: reports: Reviewed and negative Nose: reports: Reviewed and negative Throat: reports: Reviewed and negative Cardiac: reports: Palpitations. denies: Chest pain / pressure Respiratory: denies: Dyspnea, Cough GI: denies: Abdominal Pain, Nausea, Vomiting : reports: Reviewed and negative Skin: reports: Reviewed and negative Musculoskeletal: reports: Reviewed and negative Neurologic: reports: Reviewed and negative Psychiatric: reports: Anxiety. 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) - Present Medications Home Medications: Ambulatory Orders Medication Instructions Recorded Confirmed Furosemide [Lasix] 40 mg PO DAILY 12/11/20 05/29/21 Spironolactone [Aldactone] 100 mg PO DAILY 12/11/20 05/29/21 amLODIPine [Norvasc] 10 mg PO DAILY 12/11/20 05/29/21 OLANZapine [Zyprexa] 10 mg PO DAILY 05/29/21 05/29/21 busPIRone [Buspar] 5 mg PO BID 05/29/21 05/29/21 hydrOXYzine HCL [Hydroxyzine HCl] 25 mg PO PRN PRN 05/29/21 05/29/21 - Allergies Allergies/Adverse Reactions: Allergies Allergy/AdvReac Type Severity Reaction Status Date / Time No Known Drug Allergies Allergy Verified 05/29/21 17:47 - Social History Does the pt smoke?: No Smoking Status: Never smoker Does the pt drink ETOH?: Yes Does the pt have substance abuse?: No - Immunizations Immunizations are current?: Yes - POLST Patient has POLST: No POLST Status: Full Code PD ED PE EXPANDED - General General: Alert, Other (Manic behavior) - Cardiac Cardiac: Tachy, Radial strong equal, Pedal strong equal, Cap refill < 2 sec. No: Murmur Present - Respiratory Respiratory: Clear to ausultation tanya. No: Distress, Labored - Abdomen Abdomen: Normal Bowel sounds. No: Tender to palpation - Derm Derm: Normal color, Warm and dry. No: Rash - Extremities Extremities: Normal. No: Deformity, Tenderness - Neuro Neuro: Alert and Oriented X 3, CNII-XII intact, Normal gait, Normal finger nose, Normal speech - GCS Eye Opening: Spontaneous Motor: Obeys Commands Verbal: Oriented Total: 15 - Psych Psych: Anxious, Manic, Pressured speech (Hyperverbal) Results - Vitals Vitals: Vital Signs - 24 hr 05/29/21 05/29/21 17:42 18:28 Temperature 35.9 C L 37 C Heart Rate 113 H 112 H Respiratory 16 24 Rate Blood Pressure 171/78 H 157/75 H O2 Saturation 96 97 Oxygen O2 Source Room air - EKG (time done) 1816 Rate: Rate (enter#) (112) Rhythm: Sinus tachycardia [place]: Normal Intervals: Normal [place] QRS: Normal Ischemia: Normal ST segments Compare to prior EKG: Unchanged from prior EKG Computer interpretation: Agree with computer - Labs Labs: Laboratory Tests 05/29/21 05/29/21 05/29/21 17:50 17:50 17:50 WBC 10.2 RBC 4.45 Hgb 13.5 Hct 36.2 L MCV 81.3 MCH 30.3 MCHC 37.3 H RDW 12.7 Plt Count 114 L MPV 9.0 Neut # (Auto) 8.9 H Lymph # (Auto) 0.6 L Baxter # (Auto) 0.6 Eos # (Auto) 0.1 Baso # (Auto) 0.0 Absolute Nucleated RBC 0.00 Nucleated RBC % 0.0 Sodium 121 L Potassium 3.7 Chloride 85 L Carbon Dioxide 19 L Anion Gap 17.0 H BUN 8 Creatinine 0.7 Estimated GFR (MDRD) 84 L Glucose 160 H Calcium 8.9 Total Bilirubin 0.9 AST 60 H ALT 58 Alkaline Phosphatase 63 Troponin I High Sens Total Protein 7.8 Albumin 4.3 Globulin 3.5 Albumin/Globulin Ratio 1.2 Lipase 50 TSH 1.99 Urine Color Urine Clarity Urine pH Ur Specific Cotter Urine Protein Urine Glucose (UA) Urine Ketones Urine Occult Blood Urine Nitrite Urine Bilirubin Urine Urobilinogen Ur Leukocyte Esterase Urine RBC Urine WBC Ur Squamous Epith Cells Urine Bacteria Ur Microscopic Review Urine Culture Comments Nasal Adenovirus (PCR) Nasal B. parapertussis DNA (PCR) Nasal Coronavir 229E PCR Nasal Coronavir HKU1 PCR Nasal Coronavir NL63 PCR Nasal Coronavir OC43 PCR Nasal Enterovir/Rhinovir PCR Nasal Influenza B PCR Nasal Influenza A PCR Nasal Parainfluen 1 PCR Nasal Parainfluen 2 PCR Nasal Parainfluen 3 PCR Nasal Parainfluen 4 PCR Nasal RSV (PCR) Nasal B.pertussis DNA PCR Nasal C.pneumoniae (PCR) Sameer Human Metapneumo PCR Nasal M.pneumoniae (PCR) Nasal SARS-CoV-2 (PCR) Salicylates < 6.0 Urine Opiates Screen Ur Oxycodone Screen Urine Methadone Screen Ur Propoxyphene Screen Acetaminophen < 10 L Ur Barbiturates Screen Ur Tricyclics Screen Ur Phencyclidine Scrn Ur Amphetamine Screen U Methamphetamines Scrn U Benzodiazepines Scrn Urine Cocaine Screen U Cannabinoids Screen Ethyl Alcohol 77.6 05/29/21 05/29/21 05/29/21 18:04 18:06 18:26 WBC RBC Hgb Hct MCV MCH MCHC RDW Plt Count MPV Neut # (Auto) Lymph # (Auto) Baxter # (Auto) Eos # (Auto) Baso # (Auto) Absolute Nucleated RBC Nucleated RBC % Sodium Potassium Chloride Carbon Dioxide Anion Gap BUN Creatinine Estimated GFR (MDRD) Glucose Calcium Total Bilirubin AST ALT Alkaline Phosphatase Troponin I High Sens 8.7 Total Protein Albumin Globulin Albumin/Globulin Ratio Lipase TSH Urine Color YELLOW Urine Clarity CLEAR Urine pH 6.0 Ur Specific Cotter 1.015 Urine Protein NEGATIVE Urine Glucose (UA) NEGATIVE Urine Ketones TRACE Urine Occult Blood SMALL H Urine Nitrite NEGATIVE Urine Bilirubin NEGATIVE Urine Urobilinogen 1 (NORMAL) Ur Leukocyte Esterase NEGATIVE Urine RBC 0-5 Urine WBC 0-3 Ur Squamous Epith Cells FEW Squamous Urine Bacteria Few Ur Microscopic Review INDICATED Urine Culture Comments NOT INDICATED Nasal Adenovirus (PCR) NOT DETECTED Nasal B. parapertussis DNA (PCR) NOT DETECTED Nasal Coronavir 229E PCR NOT DETECTED Nasal Coronavir HKU1 PCR NOT DETECTED Nasal Coronavir NL63 PCR NOT DETECTED Nasal Coronavir OC43 PCR NOT DETECTED Nasal Enterovir/Rhinovir PCR NOT DETECTED Nasal Influenza B PCR NOT DETECTED Nasal Influenza A PCR NOT DETECTED Nasal Parainfluen 1 PCR NOT DETECTED Nasal Parainfluen 2 PCR NOT DETECTED Nasal Parainfluen 3 PCR NOT DETECTED Nasal Parainfluen 4 PCR NOT DETECTED Nasal RSV (PCR) NOT DETECTED Nasal B.pertussis DNA PCR NOT DETECTED Nasal C.pneumoniae (PCR) NOT DETECTED Sameer Human Metapneumo PCR NOT DETECTED Nasal M.pneumoniae (PCR) NOT DETECTED Nasal SARS-CoV-2 (PCR) NOT DETECTED Salicylates Urine Opiates Screen NEGATIVE Ur Oxycodone Screen NEGATIVE Urine Methadone Screen NEGATIVE Ur Propoxyphene Screen NEGATIVE Acetaminophen Ur Barbiturates Screen NEGATIVE Ur Tricyclics Screen NEGATIVE Ur Phencyclidine Scrn NEGATIVE Ur Amphetamine Screen NEGATIVE U Methamphetamines Scrn NEGATIVE U Benzodiazepines Scrn NEGATIVE Urine Cocaine Screen NEGATIVE U Cannabinoids Screen NEGATIVE Ethyl Alcohol PD MEDICAL DECISION MAKING - ED course Complexity details: reviewed results, re-evaluated patient, considered differential, d/w patient ED course: 65-year-old female who has a psychiatric history that includes anxiety, depression as well as bipolar disorder presents the emergency department with worsening anxiety. She reports that her primary care provider took her off the trazodone nearly 1 month ago. However over the last 4 to 5 days she has been having increasing anxiety to the extent that she has been drinking beer to help calm her nerves. She would like to be resumed on the trazodone. She denies thoughts of harm to self or others. Patient was given 2 mg of Ativan orally here in the emergency department with improvement in her jones. On initial presentation the patient appears well though is hyperverbal and somewhat tremulous. Screening EKG is mildly tachycardic but nonischemic. Her screening labs do show however show a fairly low sodium of 121. Patient has had a sodium as low as 124 with previous admissions but never quite this low. Patient is denying any chest pain or headache. However given the significant hyponatremia have presented this patient for admission to Dr. Hubbard who agrees to observation. Patient is aware of plan and status and is in agreement. Departure - Departure Disposition: ED Place in Observation Clinical Impression: Hyponatremia, Anxiety
[2021-05-29 18:22] LABS: CLARITY,URINE CLEAR (CLEAR)
[2021-05-29 18:24] LABS: AMPHETAMINE SCREEN,URINE NEGATIVE (NEGATIVE); BARBITURATE SCREEN,UR NEGATIVE (NEGATIVE); BENZODIAZEPINES SCREEN, URINE NEGATIVE (NEGATIVE); COCAINE SCREEN URINE NEGATIVE (NEGATIVE); METHADONE SCREEN, URINE NEGATIVE (NEGATIVE); METHAMPHETAMINES SCREEN, URINE NEGATIVE (NEGATIVE); OPIATE SCREEN, URINE NEGATIVE (NEGATIVE); OXYCODONE SCREEN, URINE NEGATIVE (NEGATIVE); PROPOXYPHENE SCREEN, URINE NEGATIVE (NEGATIVE); THC CANNABINOID SCREEN, URINE NEGATIVE (NEGATIVE); TRICYCLIC ANTIDEPRESSANT,URINE NEGATIVE (NEGATIVE)
[2021-05-29] MEDS ORDERED: LORazepam 1 MG TABLET PO STA (18:29)
[2021-05-29 18:31] LABS: BACTERIA,URINE Few /HPF (None Seen); RBC,URINE 0-5 /HPF (0-5); SQUAMOUS EPITHELIAL CELL,UR FEW Squamous (<= Few); WBC,URINE 0-3 /HPF (0-5)
[2021-05-29 19:32] LABS: CORONAVIRUS 229E-RESP PCR NOT DETECTED; CORONAVIRUS HKU1-RESP PCR NOT DETECTED; CORONAVIRUS NL63-RESP PCR NOT DETECTED; CORONAVIRUS OC43-RESP PCR NOT DETECTED; HUMAN METAPNEUMOVIRUS NOT DETECTED; INFLUENZA A- RESP PCR PANEL NOT DETECTED; RHINOVIRUS/ENTEROVIRUS NOT DETECTED; SARS-CoV-2 -RESP PCR PANEL NOT DETECTED
[2021-05-29 19:33] LABS: B. PARAPERTUSSIS- RESP PCR PAN NOT DETECTED; B. PERTUSSIS- RESP PCR PANEL NOT DETECTED; C. PNEUMONIAE- RESP PCR PANEL NOT DETECTED; INFLUENZA B - RESP PCR PANEL NOT DETECTED; M. PNEUMONIAE- RESP PCR PANEL NOT DETECTED; PARAINFLUENZA VIRUS 1 NOT DETECTED; PARAINFLUENZA VIRUS 2 NOT DETECTED; PARAINFLUENZA VIRUS 3 NOT DETECTED; PARAINFLUENZA VIRUS 4 NOT DETECTED; RSV- RESP PCR PANEL NOT DETECTED
[2021-05-29] MEDS ORDERED: ACETAMINOPHEN 325 MG TABLET PO PRN (19:44)
[2021-05-29] MEDS ORDERED: ONDANSETRON 4 MG/2 ML VIAL IVP PRN (19:44)
[2021-05-29] MEDS ORDERED: ONDANSETRON ODT 4 MG TABLET TL PRN (19:44)
[2021-05-29] MEDS ORDERED: MULTIVITAMIN IV SCH (19:46)
[2021-05-29] MEDS ORDERED: THIAMINE IV SCH (19:46)
[2021-05-29] MEDS ORDERED: MAGNESIUM SULFATE IV SCH (19:46)
[2021-05-29] MEDS ORDERED: [UNRECOGNIZED DRUG - OTHER] IV SCH (19:46)
--- NOTE | 2021-05-29 19:50 | HISTORY & PHYSICAL EXAMINATION ---
Chief Complaint - Chief Complaint Chief Complaint: Anxiety History of Present Illness - Admitted From Admitted From:: Home - History Obtained From Records Reviewed: Yes History obtained from: Patient, ER Provider, EMR - History of Present Illness HPI Comment/Other: This is a 65-year-old female with a past medical history of bipolar 1 disorder, hypertension, hepatitis C, anxiety who presents today complaining of worsening anxiety over the past month. She states that she been anxious for the past month and she is unsure why. There is nothing in particular she is anxious about. She states that is progressed over the past 2 weeks to the point where she could barely sleep last night. She decided to come to the emergency department because she was becoming more anxious. She reports drinking 3 beers earlier today to help with anxiety. She reports drinking 2-3 beers about 3 times a week. She does smoke on and off but has been using nicotine gum recently. She denies any suicidal ideations or thoughts. She also denies homicidal ideations or thoughts. She is hoping she can be hospitalized to help with her anxiety. She states she was started on Zyprexa, BuSpar, hydroxyzine about 2 months ago. Her trazodone was also discontinued at that time. She does not believe her anxiety started with a change in her medications as that started about a month later. She reports adequate oral intake. She has not been drinking excessive water and has been eating okay. She is on furosemide and spironolactone which she has been on for many years. She believes this is for her liver due to hepatitis C. Here in the emergency department, she is noted to have a sodium of 121. She is also tachycardic with heart rates in the low 100s. Given this, medicine was consulted for admission. She has received Ativan in the emergency department to help with her anxiety. We did discuss goals of care and she would like to be a full code. History - Past Medical History Cardiovascular: reports: Hypertension, High cholesterol, Atrial fibrillation Respiratory: reports: None Neuro: reports: Headaches, Tremors Endocrine/Autoimmune: reports: None GI: reports: Hepatitis : reports: None HEENT: reports: None, Dental implants Psych: reports: Bipolar disorder Musculoskeletal: reports: None Derm: reports: None MRSA Hx?: No - Past Surgical History General: reports: Other (Ventral hernia repair, [facility]) - Family & Social History Family History Comment/Other: Her mother from emphysema. Her father had an unknown type of cancer. Living arrangement: At home Living Situation: With family Social History Notes: She has been smoking on and off for about 50 years. She smoked as much as 2 packs a day. She is currently using nicotine gum to help alleviate the craving for nicotine. She has been drinking about 3 beers a day when she does drink alcohol. She states she only drinks 3 times a week. - POLST Patient has POLST: No POLST Status: Full Code Meds/Allgy - Home Medications Home Medications: Ambulatory Orders Medication Instructions Recorded Confirmed Furosemide [Lasix] 40 mg PO DAILY 12/11/20 05/29/21 Spironolactone [Aldactone] 100 mg PO DAILY 12/11/20 05/29/21 amLODIPine [Norvasc] 10 mg PO DAILY 12/11/20 05/29/21 OLANZapine [Zyprexa] 10 mg PO DAILY 05/29/21 05/29/21 busPIRone [Buspar] 5 mg PO BID 05/29/21 05/29/21 hydrOXYzine HCL [Hydroxyzine HCl] 25 mg PO PRN PRN 05/29/21 05/29/21 - Allergies Allergies/Adverse Reactions: Allergies Allergy/AdvReac Type Severity Reaction Status Date / Time No Known Drug Allergies Allergy Verified 05/29/21 17:47 Review of Systems - Constitutional Constitutional: denies: Fatigue, Fever, Chills, Poor appetite - Cardiovascular Cariovascular: denies: Chest pain, Exertional dyspnea, Decr. exercise tolerance - Respiratory Respiratory: denies: Cough, SOB at rest, SOB with exertion - Gastrointestinal Gastrointestinal: denies: Abdominal pain, Diarrhea, Nausea, Vomiting - Genitourinary Genitourinary: denies: Dysuria, Frequency, Urgency, Hematuria - Musculoskeletal Musculoskeletal: denies: Limited range of motion - Integumentary Integumentary: denies: Rash - Neurological Neurological: denies: General weakness, Focal weakness - Psychiatric Psychiatric: reports: Anxiety. denies: Suicidal, Hallucinations - All Other Systems All Other Systems: reports: Reviewed and negative Prior Level of Functionality: She is independent with her ADL's. Exam - Vital Signs Reviewed Vital Signs: Yes Vital Signs: Vital Signs x48h Temp Pulse Resp BP Pulse Ox 05/29/21 18:28 37 C 112 H 24 157/75 H 97 05/29/21 17:42 35.9 C L 113 H 16 171/78 H 96 - Physical Exam General Appearance: positive: No acute distress, Alert, Anxious Eyes Bilateral: positive: Normal inspection, No lid inflammation ENT: positive: Dry mucous membranes. negative: No signs of dehydration Neck: positive: Nml inspection Respiratory: positive: No respiratory distress. negative: Wheezes, Rales Cardiovascular: positive: No murmur, Tachycardia. negative: Irregularly irregular Abdomen: positive: Non-tender, No distention. negative: Tenderness Skin: positive: Warm, Dry Extremities: positive: No pedal edema Neurologic/Psychiatric: positive: Other (She is tremulous with pressured speech.). negative: Disoriented to person, Disoriented to place, Disoriented to time Conclusion/Plan - Problem List (1) Hyponatremia Conclusion/Plan: This appears to be hypovolemic hyponatremia as she does appear dry on exam. This may be due to the use of furosemide and spironolactone in a patient who consumes alcohol. Her sodium is 121 on admission. We will start her on a banana bag with normal saline and recheck a sodium at 10 PM and once again in the a.m. The goal sodium will be 129 by tomorrow evening. We will check a urine sodium. We will hold off on urine osmolality as it is a send out lab. Hold home diuretics. (2) Anxiety Conclusion/Plan: It is not clear why her anxiety has been exacerbated over the past few weeks. This may be due to the medication change as trazodone was discontinued and she started on olanzapine. It seems BuSpar and anoxia have had minimal effect on her. This may be exacerbated by her alcohol use as well. Once she is medically cleared, will discuss with social work regarding the need for mental health evaluation or we can consider a telepsych consult. (3) Bipolar 1 disorder Conclusion/Plan: We will continue her home olanzapine. She will likely need telepsych consult or an inpatient mental health evaluation given her anxiety. (4) Alcohol use disorder Conclusion/Plan: She reporting alcohol 3 times a week and her EtOH level is over 70 although she does admit to drinking alcoholic beverages today. She has a history of alcohol withdrawal seizure. She has tremors at this time but I am not 1% sure this is related to her alcohol use. We will place her on a banana bag and CIWA protocol. Low threshold to start her on standing lorazepam or Librium. (5) Hypertension Conclusion/Plan: She is hypertensive with systolic in the 160s. We will resume her home amlodipine and consider a second antihypertensive if necessary. (6) Hepatitis C Conclusion/Plan: She reports a history of hepatitis C but has not received treatment for it. Her LFTs are stable. She will need outpatient follow-up for this. - Lab Results Lab results reviewed: Yes Talib Bones: 05/29/21 17:50 05/29/21 19:50 Core Measures - Anticipated LOS I expect patient to be DC'd or transferred within 96 hours.: Yes - Issues Hospital Issues and Management Plan: 65-year-old female with a history of bipolar disorder, hypertension presents increased anxiety found to have hyponatremia on routine labs. She will be admitted for further management of this. - DVT/VTE - Prophylaxis VTE/DVT Device ordered at admit?: Yes VTE/DVT Prophylaxis med ordered at admit?: No Not Ordered - Medical Reason: Not indicated
[2021-05-29 20:11] LABS: CALCIUM 8.6 mg/dL (8.5-10.3); CREATININE 0.6 mg/dL (0.4-1.0); POTASSIUM 3.3 mmol/L (3.5-5.0)
[2021-05-29] MEDS ORDERED: THIAMINE 100 MG/1 ML 2 ML MDV ONE (20:24)
[2021-05-29] MEDS ORDERED: MAGNESIUM SULFATE 1 GM/2 ML VIAL ONE (20:24)
[2021-05-29] MEDS: SODIUM CHLORIDE FLUSH 0.9% 10 ML SYRINGE IVP PRN (20:34)
[2021-05-29] MEDS: busPIRone 5 MG TABLET PO SCH (20:55)
[2021-05-29] MEDS ORDERED: POTASSIUM CHLORIDE 20 MEQ TABLET PO STA (21:22)
[2021-05-29] MEDS: diphenhydrAMINE 25 MG CAPSULE PO PRN (21:44)
[2021-05-29] MEDS: SODIUM CHLORIDE FLUSH 0.9% 10 ML SYRINGE IVP SCH (23:15)
[2021-05-29 23:30] LABS: CALCIUM 8.4 mg/dL (8.5-10.3); CREATININE 0.7 mg/dL (0.4-1.0); POTASSIUM 4.1 mmol/L (3.5-5.0)
[2021-05-30] MEDS: NICOTINE 14 MG PATCH TOP SCH ×2 (02:19→08:52)
[2021-05-30 05:22] LABS: BASOPHILS % (AUTO) 0.3 %; EOSINOPHILS # (AUTO) 0.1 10^3/uL (0.0-0.7); EOSINOPHILS % (AUTO) 1.8 %; HCT - HEMATOCRIT 34.1 % (37.0-47.0); HGB - HEMOGLOBIN 12.3 g/dL (12.0-16.0); LYMPHOCYTES # (AUTO) 0.5 10^3/uL (1.5-3.5); LYMPHOCYTES % (AUTO) 8.2 %; MEAN CORPUSCULAR HEMOGLOBIN 30.1 pg (27.0-31.0); MEAN CORPUSCULAR HGB CONC 36.1 g/dL (32.0-36.0); MEAN CORPUSCULAR VOLUME 83.4 fL (81.0-99.0); MONOCYTES # (AUTO) 0.5 10^3/uL (0.0-1.0); MONOCYTES % (AUTO) 8.2 %; NEUTROPHILS # (AUTO) 4.8 10^3/uL (1.5-6.6); PLT - PLATELET COUNT 107 10^3/uL (130-450); RED BLOOD COUNT 4.09 10^6/uL (4.20-5.40); RED CELL DISTRIBUTION WIDTH 12.9 % (12.0-15.0)
[2021-05-30 05:33] LABS: CALCIUM 8.2 mg/dL (8.5-10.3); CREATININE 0.7 mg/dL (0.4-1.0); POTASSIUM 3.6 mmol/L (3.5-5.0)
[2021-05-30] MEDS ORDERED: LORazepam 1 MG TABLET PO STA (07:00)
[2021-05-30] MEDS: OLANZapine ODT 5 MG TABLET TL SCH (08:52)
[2021-05-30] MEDS: busPIRone 5 MG TABLET PO SCH ×2 (08:52→20:11)
[2021-05-30] MEDS: amLODIPine 5 MG TABLET PO SCH (08:52)
[2021-05-30] MEDS: SPIRONOLACTONE 25 MG TABLET PO SCH (08:53)
[2021-05-30] MEDS: SODIUM CHLORIDE FLUSH 0.9% 10 ML SYRINGE IVP SCH ×2 (08:53→20:12)
[2021-05-30] MEDS ORDERED: SODIUM CHLORIDE 0.9% 1,000 ML IV SCH ×3 (09:09→20:49)
--- NOTE | 2021-05-30 09:50 | PHARMACY PROGRESS NOTE ---
- Best Possible Medication History Admit Date and Time: 05/29/212014 Processed by: Pharmacy Medication History completed: Yes Secondary Source(s): Physician records, Pharmacy records, Insurance records As the person ultimately responsible for medication therapy, providers are able to order a medication from an existing home medication list in [facility] via the "Reconcile Routine" prior to Confirmation of that medication by technical support professional. Such practice is discouraged except when the physician, in their clinical judgment, deems that a medical need exists for a medication without regard to previous use.
[2021-05-30] MEDS: PRENATAL VITAMIN TABLET PO SCH (10:32)
[2021-05-30] MEDS: THIAMINE 100 MG TABLET PO SCH (10:32)
[2021-05-30] MEDS: SODIUM CHLORIDE FLUSH 0.9% 10 ML SYRINGE IVP PRN (10:32)
[2021-05-30] MEDS ORDERED: THIAMINE IV SCH (11:00)
[2021-05-30] MEDS ORDERED: MAGNESIUM SULFATE IV SCH (11:00)
[2021-05-30] MEDS ORDERED: [UNRECOGNIZED DRUG - OTHER] IV SCH (11:00)
[2021-05-30] MEDS ORDERED: LORazepam 1 MG TABLET PO PRN ×2 (11:00→13:11)
[2021-05-30] MEDS ORDERED: MULTIVITAMIN IV SCH (11:00)
[2021-05-30 12:08] LABS: CREATININE 0.6 mg/dL (0.4-1.0); POTASSIUM 4.1 mmol/L (3.5-5.0)
[2021-05-30] MEDS ORDERED: LORazepam 2 MG/ML VIAL IVP PRN ×2 (13:08→13:56)
--- NOTE | 2021-05-30 13:24 | XRAY Report ---
PROCEDURE: Chest 1 View X-Ray INDICATIONS: SOB TECHNIQUE: One view of the chest was acquired. COMPARISON: None. FINDINGS: Surgical changes and devices: None. Lungs and pleura: No pleural effusions or pneumothorax. Lungs are clear. Mediastinum: Mediastinal contours appear normal. Asymmetric elevation of the right hemidiaphragm. He art size is normal. Bones and chest wall: No suspicious bony lesions. Overlying soft tissues appear unremarkable. IMPRESSION: No acute cardiopulmonary abnormality. Reviewed by: Sea Vickers MD on 05/30/2021 1:22 PM [facility] Approved by: Sea Vickers MD on 05/30/2021 1:22 PM [facility] Station ID: [id number]
--- NOTE | 2021-05-30 14:03 | PROVIDER PROGRESS NOTE ---
Assessment/Plan - Problem List (1) Hyponatremia Assessment/Plan: 05/30 improved. serum sodium is 129, slight fast about correction of sodium but pt is alert and oriented plus 4. she ate and tolerated her diet. she ambulate without difficult. will reduce IVF of NS to 75cc/h, neuro check, continue lab monitor overnight. (2) Anxiety pt still present high anxiety but she report Ativan did help her. Her anxiety is likely causing her sinus tachycardia as well. resume her home meds Buspar, add PRN Ativan, continue CIWA protocol for her alcohol withdrawal as needed (3) Bipolar 1 disorder Conclusion/Plan: We will continue her home olanzapine. pt may followup with psychiatrist as out- pt (4) Alcohol use disorder Conclusion/Plan: pt report she used alcohol as daily base to deal with her anxiety and stress. pt has no obviously alcohol withdrawal at this point, but based on pt's high anxiety, will continue alcohol withdrawal protocol with high dosage IV ativan as needed. (5) Hypertension Conclusion/Plan: stable and controlled. continue her home amlodipine and spironolactone (6) Hepatitis C Conclusion/Plan: stable. She reports a history of hepatitis C but has not received treatment for it. Her LFTs are stable. She will need outpatient follow-up for this. (7)tachycardia HR is 115 now. EKG reveal sinus tachycardia, pt denies chest pain, palpitations. it is likely caused by her high anxiety and alcohol abuse/withdrawal. will treat her anxiety, gently IVF, add tele monitor. - Current Meds Current Meds: Current Medications Generic Name Dose Route Start Last Admin Trade Name Rahq PRN Reason Stop Dose Admin Amlodipine Besylate 10 mg 05/30/21 09:00 05/30/21 08:52 Amlodipine 5 Mg Tablet PO 10 mg DAILY YENNY Administration Diphenhydramine HCl 25 mg 05/29/21 20:48 05/29/21 21:44 Diphenhydramine 25 Mg Capsule PO 25 mg QPM PRN Administration Insomnia Sodium Chloride 1,000 mls @ 75 mls/hr 05/30/21 13:06 05/30/21 13:48 Normal Saline 0.9% IV 05/31/21 15:45 75 mls/hr .[id number] YENNY Administration Nicotine 1 patch 05/30/21 01:13 05/30/21 08:52 Nicotine 14 Mg Patch TOP 1 patch DAILY YENNY Administration Olanzapine 10 mg 05/30/21 09:00 05/30/21 08:52 Olanzapine Odt 5 Mg Tablet TL 10 mg DAILY YENNY Administration Multivit/Folic Acid/Iron 1 tab 05/30/21 10:00 05/30/21 10:32 Vitamin Tablet PO 1 tab DAILYWM YENNY Administration Sodium Chloride 10 ml 05/29/21 19:44 05/30/21 10:32 Sodium Chloride Flush 0.9% 10 Ml Syringe IVP 10 ml PRN PRN Administration NEEDED PER PROVIDER ORDERS Sodium Chloride 10 ml 05/30/21 01:00 05/30/21 08:53 Sodium Chloride Flush 0.9% 10 Ml Syringe IVP 10 ml 0100,0900,1700 YENNY Administration Spironolactone 100 mg 05/30/21 09:00 05/30/21 08:53 Spironolactone 25 Mg Tablet PO 100 mg DAILY YENNY Administration Thiamine HCl 100 mg 05/30/21 10:00 05/30/21 10:32 Thiamine 100 Mg Tablet PO 100 mg DAILY YENNY Administration - Lab Result Fish Bone Diagrams: 05/30/21 04:42 05/30/21 11:55 - Additional Planning My Orders: My Active Orders 05/30/21 10:00 Vitamin [Trinatal Rx 1] 1 tab PO DAILYWM Thiamine [Vitamin B-1] 100 mg PO DAILY 05/30/21 Lunch Regular Diet [DIET] 05/30/21 13:06 Sodium Chloride 0.9% [Normal Saline 0.9%] 1,000 ml IV 75 mls/hr 05/30/21 13:52 Neuro Check [RC] QSHIFT 05/30/21 13:56 LORazepam INJ [Ativan Inj (Vial)] 2 mg IVP Q30M PRN 05/30/21 13:57 LORazepam [Ativan] 1 mg PO Q6H PRN 05/30/21 14:01 Admit [Admit \ Transfer \ Status] [RC] .ONCE 05/30/21 21:00 busPIRone [Buspar] 10 mg PO BID Subjective - Subjective Patient Reports: Feeling Better Objective Vital Signs: Vital Signs - 24 hr 05/29/21 05/29/21 05/29/21 17:42 18:28 20:23 Temperature 35.9 C L 37 C 36.9 C Heart Rate 113 H 112 H Heart Rate [ 108 H Brachial] Respiratory 16 24 26 H Rate Blood Pressure 171/78 H 157/75 H Blood Pressure [Left Brachial artery] Blood Pressure 162/80 H [Right Brachial artery] O2 Saturation 96 97 96 05/29/21 05/30/21 05/30/21 23:41 05:32 08:00 Temperature 36.9 C 36.5 C 36.8 C Heart Rate Heart Rate [ 109 H 107 H 114 H Brachial] Respiratory 20 20 24 Rate Blood Pressure Blood Pressure 136/66 H [Left Brachial artery] Blood Pressure 145/65 H 157/75 H [Right Brachial artery] O2 Saturation 95 94 96 05/30/21 05/30/21 08:26 12:57 Temperature 36.4 C L 36.8 C Heart Rate Heart Rate [ 110 H 115 H Brachial] Respiratory 24 22 Rate Blood Pressure Blood Pressure 132/62 H [Left Brachial artery] Blood Pressure 154/65 H [Right Brachial artery] O2 Saturation 97 94 Oxygen O2 Source Room air I&O (Last 24 Hrs): Intake and Output Totals x24h 05/28/21 05/29/21 05/30/21 23:59 23:59 23:59 Intake Total 1945 Output Total 275 Balance 1670 General: Alert, Oriented x3, Cooperative, Mild distress HEENT: Atraumatic Neck: Supple Lymphatic: no adenopathy Neuro: Alert, Non Focal, Oriented Times 3 Cardiovascular: Regular rate, Normal S1, Normal S2 Respiratory: Chest non-tender, No respiratory distress Abdomen: Normal bowel sounds, Soft Extremities: Normal pulses - Results Results: Laboratory Results WBC 6.0 x10^3/uL (4.8-10.8) 05/30/21 04:42 RBC 4.09 10^6/uL (4.20-5.40) L 05/30/21 04:42 Hgb 12.3 g/dL (12.0-16.0) 05/30/21 04:42 Hct 34.1 % (37.0-47.0) L 05/30/21 04:42 MCV 83.4 fL (81.0-99.0) 05/30/21 04:42 MCH 30.1 pg (27.0-31.0) 05/30/21 04:42 MCHC 36.1 g/dL (32.0-36.0) H 05/30/21 04:42 RDW 12.9 % (12.0-15.0) 05/30/21 04:42 Plt Count 107 10^3/uL (130-450) L 05/30/21 04:42 MPV 9.0 fL (7.9-10.8) 05/30/21 04:42 Neut # (Auto) 4.8 10^3/uL (1.5-6.6) 05/30/21 04:42 Lymph # (Auto) 0.5 10^3/uL (1.5-3.5) L 05/30/21 04:42 Zavala # (Auto) 0.5 10^3/uL (0.0-1.0) 05/30/21 04:42 Eos # (Auto) 0.1 10^3/uL (0.0-0.7) 05/30/21 04:42 Baso # (Auto) 0.0 10^3/uL (0.0-0.1) 05/30/21 04:42 Absolute Nucleated RBC 0.00 x10^3/uL 05/30/21 04:42 Nucleated RBC % 0.0 /100WBC 05/30/21 04:42 Sodium 129 mmol/L (135-145) L 05/30/21 11:55 Potassium 4.1 mmol/L (3.5-5.0) 05/30/21 11:55 Chloride 94 mmol/L (101-111) L 05/30/21 11:55 Carbon Dioxide 24 mmol/L (21-32) 05/30/21 11:55 Anion Gap 11.0 (6-13) 05/30/21 11:55 BUN 10 mg/dL (6-20) 05/30/21 11:55 Creatinine 0.6 mg/dL (0.4-1.0) 05/30/21 11:55 Estimated GFR (MDRD) 100 (>89) 05/30/21 11:55 Glucose 124 mg/dL (70-100) H 05/30/21 11:55 Calcium 9.0 mg/dL (8.5-10.3) 05/30/21 11:55 Total Bilirubin 0.9 mg/dL (0.2-1.0) 05/29/21 17:50 AST 60 IU/L (10-42) H 05/29/21 17:50 ALT 58 IU/L (10-60) 05/29/21 17:50 Alkaline Phosphatase 63 IU/L (42-121) 05/29/21 17:50 Troponin I High Sens 8.7 ng/L (2.3-14.8) 05/29/21 18:26 Total Protein 7.8 g/dL (6.7-8.2) 05/29/21 17:50 Albumin 4.3 g/dL (3.2-5.5) 05/29/21 17:50 Globulin 3.5 g/dL (2.1-4.2) 05/29/21 17:50 Albumin/Globulin Ratio 1.2 (1.0-2.2) 05/29/21 17:50 Lipase 50 U/L (22-51) 05/29/21 17:50 TSH 1.99 uIU/mL (0.34-5.60) 05/29/21 17:50 Urine Color YELLOW 05/29/21 18:04 Urine Clarity CLEAR (CLEAR) 05/29/21 18:04 Urine pH 6.0 PH (5.0-7.5) 05/29/21 18:04 Ur Specific Amanda 1.015 (1.002-1.030) 05/29/21 18:04 Urine Protein NEGATIVE mg/dL (NEGATIVE) 05/29/21 18:04 Urine Glucose (UA) NEGATIVE mg/dL (NEGATIVE) 05/29/21 18:04 Urine Ketones TRACE mg/dL (NEGATIVE) 05/29/21 18:04 Urine Occult Blood SMALL (NEGATIVE) H 05/29/21 18:04 Urine Nitrite NEGATIVE (NEGATIVE) 05/29/21 18:04 Urine Bilirubin NEGATIVE (NEGATIVE) 05/29/21 18:04 Urine Urobilinogen 1 (NORMAL) E.U./dL (NORMAL) 05/29/21 18:04 Ur Leukocyte Esterase NEGATIVE (NEGATIVE) 05/29/21 18:04 Urine RBC 0-5 /HPF (0-5) 05/29/21 18:04 Urine WBC 0-3 /HPF (0-5) 05/29/21 18:04 Ur Squamous Epith Cells FEW Squamous (<= Few) 05/29/21 18:04 Urine Bacteria Few /HPF (None Seen) 05/29/21 18:04 Ur Microscopic Review INDICATED 05/29/21 18:04 Urine Culture Comments NOT INDICATED 05/29/21 18:04 Urine Sodium < 12.0 mmol/L 05/29/21 18:04 Nasal Adenovirus (PCR) NOT DETECTED 05/29/21 18:06 Nasal B. parapertussis DNA (PCR) NOT DETECTED 05/29/21 18:06 Nasal Coronavir 229E PCR NOT DETECTED 05/29/21 18:06 Nasal Coronavir HKU1 PCR NOT DETECTED 05/29/21 18:06 Nasal Coronavir NL63 PCR NOT DETECTED 05/29/21 18:06 Nasal Coronavir OC43 PCR NOT DETECTED 05/29/21 18:06 Nasal Enterovir/Rhinovir PCR NOT DETECTED 05/29/21 18:06 Nasal Influenza B PCR NOT DETECTED 05/29/21 18:06 Nasal Influenza A PCR NOT DETECTED 05/29/21 18:06 Nasal Parainfluen 1 PCR NOT DETECTED 05/29/21 18:06 Nasal Parainfluen 2 PCR NOT DETECTED 05/29/21 18:06 Nasal Parainfluen 3 PCR NOT DETECTED 05/29/21 18:06 Nasal Parainfluen 4 PCR NOT DETECTED 05/29/21 18:06 Nasal RSV (PCR) NOT DETECTED 05/29/21 18:06 Nasal B.pertussis DNA PCR NOT DETECTED 05/29/21 18:06 Nasal C.pneumoniae (PCR) NOT DETECTED 05/29/21 18:06 Sameer Human Metapneumo PCR NOT DETECTED 05/29/21 18:06 Nasal M.pneumoniae (PCR) NOT DETECTED 05/29/21 18:06 Nasal SARS-CoV-2 (PCR) NOT DETECTED 05/29/21 18:06 Salicylates < 6.0 mg/dL 05/29/21 17:50 Urine Opiates Screen NEGATIVE (NEGATIVE) 05/29/21 18:04 Ur Oxycodone Screen NEGATIVE (NEGATIVE) 05/29/21 18:04 Urine Methadone Screen NEGATIVE (NEGATIVE) 05/29/21 18:04 Ur Propoxyphene Screen NEGATIVE (NEGATIVE) 05/29/21 18:04 Acetaminophen < 10 ug/mL (10-30) L 05/29/21 17:50 Ur Barbiturates Screen NEGATIVE (NEGATIVE) 05/29/21 18:04 Ur Tricyclics Screen NEGATIVE (NEGATIVE) 05/29/21 18:04 Ur Phencyclidine Scrn NEGATIVE (NEGATIVE) 05/29/21 18:04 Ur Amphetamine Screen NEGATIVE (NEGATIVE) 05/29/21 18:04 U Methamphetamines Scrn NEGATIVE (NEGATIVE) 05/29/21 18:04 U Benzodiazepines Scrn NEGATIVE (NEGATIVE) 05/29/21 18:04 Urine Cocaine Screen NEGATIVE (NEGATIVE) 05/29/21 18:04 U Cannabinoids Screen NEGATIVE (NEGATIVE) 05/29/21 18:04 Ethyl Alcohol 77.6 mg/dL 05/29/21 17:50 ABX Reporting Has patient been on IV antibiotics over the past 48 hours?: No Current Medications - Current Medications Current Medications: Active Medications Acetaminophen (Acetaminophen 325 Mg Tablet) 650 mg PO Q4HR PRN PRN Reason: Pain 1 to 4 Amlodipine Besylate (Amlodipine 5 Mg Tablet) 10 mg PO DAILY [facility] Last Admin: 05/30/21 08:52 Dose: 10 mg Documented by: Buspirone HCl (Buspirone 5 Mg Tablet) 10 mg PO BID [facility] Diphenhydramine HCl (Diphenhydramine 25 Mg Capsule) 25 mg PO QPM PRN PRN Reason: Insomnia Last Admin: 05/29/21 21:44 Dose: 25 mg Documented by: Sodium Chloride (Normal Saline 0.9%) 1,000 mls @ 75 mls/hr IV .[id number] [facility] Stop: 05/31/21 15:45 Last Admin: 05/30/21 13:48 Dose: 75 mls/hr Documented by: Lorazepam (Lorazepam 2 Mg/Ml Vial) 2 mg IVP Q30M PRN; Protocol PRN Reason: CIWA >8 Lorazepam (Lorazepam 1 Mg Tablet) 1 mg PO Q6H PRN PRN Reason: Anxiety Nicotine (Nicotine 14 Mg Patch) 1 patch TOP DAILY [facility] Last Admin: 05/30/21 08:52 Dose: 1 patch Documented by: Olanzapine (Olanzapine Odt 5 Mg Tablet) 10 mg TL DAILY [facility] Last Admin: 05/30/21 08:52 Dose: 10 mg Documented by: Ondansetron HCl (Ondansetron Odt 4 Mg Tablet) 4 mg TL Q6HR PRN PRN Reason: Nausea / Vomiting Ondansetron HCl (Ondansetron 4 Mg/2 Ml Vial) 4 mg IVP Q6HR PRN PRN Reason: Nausea / Vomiting Multivit/Folic Acid/Iron ( Vitamin Tablet) 1 tab PO DAILYWM [facility] Last Admin: 05/30/21 10:32 Dose: 1 tab Documented by: Sodium Chloride (Sodium Chloride Flush 0.9% 10 Ml Syringe) 10 ml IVP PRN PRN PRN Reason: NEEDED PER PROVIDER ORDERS Last Admin: 05/30/21 10:32 Dose: 10 ml Documented by: Sodium Chloride (Sodium Chloride Flush 0.9% 10 Ml Syringe) 10 ml IVP 0100,0900 ,1700 [facility] Last Admin: 05/30/21 08:53 Dose: 10 ml Documented by: Spironolactone (Spironolactone 25 Mg Tablet) 100 mg PO DAILY [facility] Last Admin: 05/30/21 08:53 Dose: 100 mg Documented by: Thiamine HCl (Thiamine 100 Mg Tablet) 100 mg PO DAILY [facility] Last Admin: 05/30/21 10:32 Dose: 100 mg Documented by: Furosemide [Lasix] 40 mg PO DAILY 12/11/20 Spironolactone [Aldactone] 100 mg PO DAILY 12/11/20 amLODIPine [Norvasc] 10 mg PO DAILY 12/11/20 OLANZapine [Zyprexa] 10 mg PO QPM 05/29/21 hydrOXYzine HCL [Hydroxyzine HCl] 25 mg PO TID PRN 05/29/21 Buspirone HCl 10 mg PO BID 05/30/21 Potassium Chloride [Klor-Con 10] 10 meq PO DAILYWM 05/30/21
[2021-05-30] MEDS: LORazepam 1 MG TABLET PO PRN ×2 (14:29→20:38)
[2021-05-30 15:44] LABS: ESTIMATED AVERAGE GLUCOSE 94 mg/dL (70-100); HEMOGLOBIN A1c% 4.9 % (4.27-6.07)
[2021-05-30 20:19] LABS: CALCIUM 8.9 mg/dL (8.5-10.3); POTASSIUM 4.1 mmol/L (3.5-5.0)
[2021-05-31] MEDS: diphenhydrAMINE 25 MG CAPSULE PO PRN (00:28)
[2021-05-31] MEDS: SODIUM CHLORIDE FLUSH 0.9% 10 ML SYRINGE IVP SCH ×2 (00:37→07:49)
[2021-05-31 05:51] LABS: BASOPHILS % (AUTO) 0.2 %; EOSINOPHILS # (AUTO) 0.2 10^3/uL (0.0-0.7); HCT - HEMATOCRIT 35.9 % (37.0-47.0); HGB - HEMOGLOBIN 12.6 g/dL (12.0-16.0); LYMPHOCYTES # (AUTO) 0.5 10^3/uL (1.5-3.5); LYMPHOCYTES % (AUTO) 9.5 %; MEAN CORPUSCULAR HEMOGLOBIN 29.8 pg (27.0-31.0); MEAN CORPUSCULAR HGB CONC 35.1 g/dL (32.0-36.0); MEAN CORPUSCULAR VOLUME 84.9 fL (81.0-99.0); MEAN PLATELET VOLUME 8.6 fL (7.9-10.8); MONOCYTES # (AUTO) 0.4 10^3/uL (0.0-1.0); MONOCYTES % (AUTO) 8.2 %; NEUTROPHILS % (AUTO) 78.9 %; PLT - PLATELET COUNT 107 10^3/uL (130-450); RED BLOOD COUNT 4.23 10^6/uL (4.20-5.40); RED CELL DISTRIBUTION WIDTH 13.7 % (12.0-15.0)
[2021-05-31 05:58] LABS: CALCIUM 8.7 mg/dL (8.5-10.3); CREATININE 0.7 mg/dL (0.4-1.0); POTASSIUM 3.8 mmol/L (3.5-5.0)
[2021-05-31] MEDS: LORazepam 1 MG TABLET PO PRN (06:07)
[2021-05-31] MEDS: NICOTINE 14 MG PATCH TOP SCH (07:44)
[2021-05-31] MEDS: PRENATAL VITAMIN TABLET PO SCH (07:46)
[2021-05-31] MEDS: OLANZapine ODT 5 MG TABLET TL SCH (07:46)
[2021-05-31] MEDS: SPIRONOLACTONE 25 MG TABLET PO SCH (07:46)
[2021-05-31] MEDS: THIAMINE 100 MG TABLET PO SCH (07:47)
[2021-05-31] MEDS: amLODIPine 5 MG TABLET PO SCH (07:47)
[2021-05-31] MEDS: busPIRone 5 MG TABLET PO SCH (07:47)
[2021-05-31 08:00] VITALS: BP 155/78
[2021-05-31] MEDS ORDERED: hydrOXYzine PAMOATE 25 MG CAPSULE PO PRN (08:25)
--- NOTE | 2021-05-31 09:16 | Discharge Plan ---
Discharge Plan Problem Reviewed?: Yes Disposition: Home, Self Care Condition: Stable Prescriptions: LORazepam [Ativan] 1 mg PO Q6H PRN #15 tablet PRN Reason: Anxiety Nicotine 14 mg Patch [Nicoderm] 1 patch TOP DAILY PRN #10 patch PRN Reason: Anxiety Pnv No.95/Ferrous Fum/Folic AC [ Tablet] 1 each PO DAILY #30 tablet Thiamine [Vitamin B-1] 100 mg PO DAILY #30 tablet Diet: Regular Activity Restrictions: Activity as Tolerated Shower Restrictions: No (fall precaution) Instruction Topics: Lorazepam tablets, ED Smoking Cessation, Nicotine skin patches, Alcoholism, Alcoholism Get Help, Hyponatremia Dc, Dehydration Health Concerns: alcohol abuse, hyponatremia and dehydration Plan of Treatment: You are prescribed Ativan PRN for your anxiety as you plan to quit alcohol. Please do not take Ativan if you drink alcohol. Strongly advise you quit Alcohol. You may followup with psychiatrist to manage your Anxiety and bipolar as out-pt. Please keep hydration at home, followup with your PCP in one week to recheck your serum sodium. Care Goals: quit alcohol addiction, control of your anxiety, and keep hydration at home Assessment: discussed the care plan with you, answered your questions, you understood and agreed. Additional Instructions or Follow Up instructions: You may followup with your PCP in one week and recheck your serum sodium. You may followup with psychiatrist as out-pt. Should your symptoms return or worsen, you may present ER or call 911 for help. No Smoking: If you smoke, Please STOP! Call for help. Follow-up with: Aminata Martinez MD [Primary Care Provider] -
--- NOTE | 2021-05-31 09:30 | DISCHARGE SUMMARY ---
Discharge Summary Admit Date: 05/29/21 Discharge Date: 05/31/21 Discharging Provider: Garrison Vasquez Primary Care Provider: Aminata Hardwick Condition at Discharge: Stable Discharge Disposition: 01 Home, Self Care Discharge Facility Name: home - DIAGNOSES Discharge Diagnoses with Status of Each Condition: (1) Hyponatremia resolved as her baseline, Na is 133 at d/c. pt is alert and oriented plus 4. she walks normally. advise pt keep hydration at home and quit alcohol. pt may followup with her PCP in one week to recheck her sodium level. (2) Anxiety good control now. she state Ativan did control her anxiety. pt is prescribed short term of Ativan. I and nurse Misti together discussed the care plan wit pt, we let pt know it is dangerous even lost of life when pt take Ativan at the same time pt still drink alcohol. Pt verbally state she understood and she will quit alcohol. (3) Bipolar 1 disorder stable, resume home meds and followup with psychiatrist as out-pt (4) Alcohol use disorder pt report she will quit alcohol at this time. and Vitamin B1, and short term of Ativan to help pt quit Alcohol. (5) Hypertension stable, resume home meds (6) Hepatitis C stable. pt may have outpatient follow-up for this. (7)tachycardia HR is 100 and stable, sinus rhythm. pt denies palpitation or chest pain. - [facility] History of Present Illness: refer from Dr. Hubbard's HPI on 05/29/21 This is a 65-year-old female with a past medical history of bipolar 1 disorder, hypertension, hepatitis C, anxiety who presents today complaining of worsening anxiety over the past month. She states that she been anxious for the past month and she is unsure why. There is nothing in particular she is anxious about. She states that is progressed over the past 2 weeks to the point where she could barely sleep last night. She decided to come to the emergency department because she was becoming more anxious. She reports drinking 3 beers earlier today to help with anxiety. She reports drinking 2-3 beers about 3 times a week. She does smoke on and off but has been using nicotine gum recently. She denies any suicidal ideations or thoughts. She also denies homicidal ideations or thoughts. She is hoping she can be hospitalized to help with her anxiety. She states she was started on Zyprexa, BuSpar, hydroxyzine about 2 months ago. Her trazodone was also discontinued at that time. She does not believe her anxiety started with a change in her medications as that started about a month later. She reports adequate oral intake. She has not been drinking excessive water and has been eating okay. She is on furosemide and spironolactone which she has been on for many years. She believes this is for her liver due to hepatitis C. Here in the emergency department, she is noted to have a sodium of 121. She is also tachycardic with heart rates in the low 100s. Given this, medicine was consulted for admission. She has received Ativan in the emergency department to help with her anxiety. We did discuss goals of care and she would like to be a full code. - ALLERGIES Allergies/Adverse Reactions: Allergies Allergy/AdvReac Type Severity Reaction Status Date / Time No Known Drug Allergies Allergy Verified 05/29/21 17:47 - MEDICATIONS Home Medications: Ambulatory Orders Medication Instructions Recorded Confirmed Furosemide [Lasix] 40 mg PO DAILY 12/11/20 05/29/21 Spironolactone [Aldactone] 100 mg PO DAILY 12/11/20 05/29/21 amLODIPine [Norvasc] 10 mg PO DAILY 12/11/20 05/29/21 OLANZapine [Zyprexa] 10 mg PO QPM 05/29/21 05/30/21 hydrOXYzine HCL [Hydroxyzine HCl] 25 mg PO TID PRN 05/29/21 05/30/21 Buspirone HCl 10 mg PO BID 05/30/21 05/30/21 Potassium Chloride [Klor-Con 10] 10 meq PO DAILYWM 05/30/21 05/30/21 LORazepam [Ativan] 1 mg PO Q6H PRN #15 tablet 05/31/21 Nicotine 14 mg Patch [Nicoderm] 1 patch TOP DAILY PRN #10 patch 05/31/21 Pnv No.95/Ferrous Fum/Folic AC 1 each PO DAILY #30 tablet 05/31/21 [ Tablet] Thiamine [Vitamin B-1] 100 mg PO DAILY #30 tablet 05/31/21 - PHYSICAL EXAM AT DISCHARGE General Appearance: positive: No acute distress, Alert. negative: Lethargic Eyes Bilateral: positive: Normal inspection, PERRL, No lid inflammation ENT: positive: ENT inspection nml, No signs of dehydration. negative: Purulent nasal drainage Neck: positive: Nml inspection, Trachea midline. negative: Thyromegaly, Tracheal deviation Respiratory: positive: Chest non-tender, No respiratory distress, Breath sounds nml. negative: Wheezes Cardiovascular: positive: Regular rate & rhythm, No murmur. negative: Tachycardia, Bradycardia, Systolic murmur, Diastolic murmur Peripheral Pulses: positive: 2+ Abdomen: positive: Non-tender, Nml bowel sounds, No distention. negative: Tenderness Back: positive: Nml inspection Skin: positive: Color nml, Warm, Dry. negative: Cyanosis Extremities: positive: Non-tender, Full ROM, Nml appearance. negative: Calf tenderness Neurologic/Psychiatric: positive: Oriented x3, Motor nml, Sensation nml, Mood/ affect nml. negative: Weakness, Sensory loss, Facial droop, Slurred/abnml speech, Depressed mood/affect - LABS Result Diagrams: 05/31/21 05:39 05/31/21 05:39 - FOLLOW UP Follow Up: You are prescribed Ativan PRN for your anxiety as you plan to quit alcohol. Please do not take Ativan if you drink alcohol. Strongly advise you quit Alcohol. You may followup with psychiatrist to manage your Anxiety and bipolar as out-pt. Please keep hydration at home, followup with your PCP in one week to recheck your serum sodium. You may followup with your PCP in one week and recheck your serum sodium. You may followup with psychiatrist as out-pt. Should your symptoms return or worsen, you may present ER or call 911 for help. - TIME SPENT Time Spent in Discharge (Minutes): 30
== END 2021-05-31 11:10 | disposition home or self-care (01) | DRG 641 ==
LOC: EDUNIT# → ED 17:35 → MS2 20:15 → OBSVTOIN 05-30 14:01
PROVIDERS: ADMIT Internal Medicine; ATTEND Nurse Practitioner Gerontology
DX: E87.1 Hypo-osmolality and hyponatremia (principal); F31.89 Other bipolar disorder; F31.9 Bipolar disorder, unspecified; F10.10 Alcohol abuse, uncomplicated; E78.00 Pure hypercholesterolemia, unspecified; Z20.822 Contact with and (suspected) exposure to COVID-19; E86.0 Dehydration; F41.9 Anxiety disorder, unspecified; Z72.89 Other problems related to lifestyle; I10 Essential (primary) hypertension; R00.0 Tachycardia, unspecified; F17.210 Nicotine dependence, cigarettes, uncomplicated; Z79.899 Other long term (current) drug therapy; Z86.19 Personal history of other infectious and parasitic diseases
CPT/HCPCS: 36415; 71045; 80048; 80053; 80306; 80307; 81001; 83036; 83690; 84300; 84443; 84484; 85025; 87631; 93005; 96361; 96365; 96366; 99284; 99285; A9270; G0378; G0480; J3411; J8499; 0202U; 80320; 80329; 81003; 87086

== ENCOUNTER 2021-07-21 09:40 | Outpatient (CLI) | payer MEDICARE, MEDICAID | END 2021-07-21 09:41 | disposition critical access hospital (66) | LOC: EMS 09:40 | DX: R06.00 Dyspnea, unspecified (principal) | CPT/HCPCS: A0425; A0427 ==

== ENCOUNTER 2021-07-21 10:03 | Emergency (ER) | payer MEDICARE, MEDICAID ==
[2021-07-21 10:20] VITALS: BP 155/83
--- NOTE | 2021-07-21 10:35 | XRAY Report ---
PROCEDURE: Chest 2 View X-Ray INDICATIONS: shortness of air TECHNIQUE: 2 view(s) of the chest. COMPARISON: May 30, 2021 FINDINGS: SUPPORT DEVICES: None. LUNGS/PLEURA: No focal consolidation, pleural effusion or space-occupying pneumothorax. MEDIASTINUM: The cardiomediastinal silhouette is within normal limits. BONES/SOFT TISSUES: No acute abnormality. Persistent elevation of the right diaphragm. IMPRESSION: 1.No acute cardiopulmonary abnormality. Reviewed by: Sunny Menjivar MD on 07/21/2021 10:34 AM [facility] Approved by: Sunny Menjivar MD on 07/21/2021 10:34 AM [facility] Station ID: [id number]
[2021-07-21] MEDS ORDERED: IPRATROPIUM/ALBUTEROL 3 ML NEB INH ONE (11:34)
[2021-07-21] MEDS ORDERED: DEXAMETHASONE 10 MG/ML VIAL ONE (12:23)
[2021-07-21] MEDS ORDERED: ALBUTEROL NEB 2.5 MG/3 ML INH ONE (13:34)
--- NOTE | 2021-07-21 21:07 | ED Physician Documentation ---
PD HPI DYSPNEA - Stated complaint Stated Complaint: DIFFICULTY BREATHING - Chief complaint Chief Complaint: Resp - History obtained from History obtained from: Patient - History of Present Illness Timing - onset: How many weeks ago (3) Timing - onset during: Rest Timing - duration: Weeks (3) Timing - details: Gradual onset, Still present Inciting event(s): Out of meds Improved by: Inhaler/neb Worsened by: Exertion Associated symptoms: Cough, Wheezing Similar symptoms before: Diagnosis (COPD) Recently seen: Not recently seen Review of Systems Constitutional: denies: Fever Ears: denies: Ear pain Nose: denies: Rhinorrhea / runny nose, Congestion Throat: denies: Sore throat Cardiac: reports: Chest pain / pressure. 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 HEENT: None, Dental implants Psych: Bipolar disorder Musculoskeletal: None Derm: None - Past Surgical History Past Surgical History: Yes General: Other - Present Medications Home Medications: Ambulatory Orders Medication Instructions Recorded Confirmed Furosemide [Lasix] 40 mg PO DAILY 12/11/20 05/29/21 Spironolactone [Aldactone] 100 mg PO DAILY 12/11/20 05/29/21 amLODIPine [Norvasc] 10 mg PO DAILY 12/11/20 05/29/21 OLANZapine [Zyprexa] 10 mg PO QPM 05/29/21 05/30/21 hydrOXYzine HCL [Hydroxyzine HCl] 25 mg PO TID PRN 05/29/21 05/30/21 Buspirone HCl 10 mg PO BID 05/30/21 05/30/21 Potassium Chloride [Klor-Con 10] 10 meq PO DAILYWM 05/30/21 05/30/21 LORazepam [Ativan] 1 mg PO Q6H PRN #15 tablet 05/31/21 Nicotine 14 mg Patch [Nicoderm] 1 patch TOP DAILY PRN #10 patch 05/31/21 Pnv No.95/Ferrous Fum/Folic AC 1 each PO DAILY #30 tablet 05/31/21 [ Tablet] Thiamine [Vitamin B-1] 100 mg PO DAILY #30 tablet 05/31/21 - Allergies Allergies/Adverse Reactions: Allergies Allergy/AdvReac Type Severity Reaction Status Date / Time No Known Drug Allergies Allergy Verified 07/21/21 10:08 - Social History Does the pt smoke?: No Smoking Status: Never smoker Does the pt drink ETOH?: Yes Does the pt have substance abuse?: No - Immunizations Immunizations are current?: Yes - POLST Patient has POLST: No POLST Status: Full Code PD ED PE NORMAL - General General: Alert and oriented X 3, No acute distress, Well developed/nourished - HEENT HEENT: Atraumatic, PERRL, EOMI, Ears normal - Neck Neck: Supple, no meningeal sign, No bony TTP - Cardiac Cardiac: RRR, No murmur - Respiratory Respiratory: No respiratory distress, Other (diminished breath sounds) - Abdomen Abdomen: Soft, Non tender - Back Back: No CVA TTP, No spinal TTP - Derm Derm: Normal color, Warm and dry, No rash - Extremities Extremities: No deformity, No edema - Neuro Neuro: Alert and oriented X 3, clinic office assistant 2-12 intact, No motor deficit, No sensory deficit, Normal speech Eye Opening: Spontaneous Motor: Obeys Commands Verbal: Oriented GCS Score: 15 - Psych Psych: Normal mood, Normal affect Results - Vitals Vitals: Vital Signs - 24 hr 07/21/21 10:08 Temperature 37.0 C Heart Rate 90 Respiratory 22 Rate Blood Pressure 155/83 H O2 Saturation 95 Oxygen O2 Source Room air - EKG (time done) 1034 Rate: Rate (enter#) (85) Rhythm: LAE [place]: LAD Compare to prior EKG: Changed from prior EKG (SPT 05-29-21 rate has slowed. ) Computer interpretation: Agree with computer - Rads (name of study) chest Radiology: Prelim report reviewed (Impression: One. No acute cardiopulmonary abnormality.), EMP read indepedently, See rad report PD MEDICAL DECISION MAKING - ED course Complexity details: reviewed results, re-evaluated patient, considered differential, d/w patient ED course: 65-year-old female with history of emphysema complains of increased exertional dyspnea with relief with her inhaler and the relief is inadequate. She is given dexamethasone a DuoNeb treatment here in the emergency department with marked improvement and a second albuterol treatment with further improvement. The patient's visit occurs during downtime with a computer and we are unable to review her prior visits and her discharge instructions are handwritten prescriptions were handwritten as well. Departure - Departure Disposition: 01 Home, Self Care Clinical Impression: COPD exacerbation Discharge Date/Time: 07/21/21 15:17
== END 2021-07-21 15:17 | disposition home or self-care (01) ==
LOC: EDBD → ED 10:03
DX: J44.1 Chronic obstructive pulmonary disease with (acute) exacerbation (principal); R07.9 Chest pain, unspecified; I10 Essential (primary) hypertension
CPT/HCPCS: 93005; 94640; 99283; 99284

== ENCOUNTER 2021-08-25 11:31 | Outpatient (CLI) | payer MEDICARE, MEDICAID | END 2021-08-25 11:32 | disposition critical access hospital (66) | LOC: EMS 11:31 | DX: R06.02 Shortness of breath (principal) | CPT/HCPCS: A0425; A0429 ==

== ENCOUNTER 2021-08-25 11:51 | Emergency (ER) | payer MEDICARE, MEDICAID ==
--- NOTE | 2021-08-25 13:21 | ED Physician Documentation ---
History of Present Illness - Stated complaint Stated Complaint: SOA - Chief complaint Chief Complaint: Resp - History obtained from History obtained from: Patient - History of Present Illness Timing: How many days ago (3-4) Pain level max: 0 Pain level now: 0 - Additonal information Additional information: Patient is a 65-year-old female with a history of COPD that states she has had increased work of breathing over the past 3 to 4 days. She is using an albuterol inhaler with spacer which helps but states that she is still having shortness of breath. No fevers. No increased cough. No chills. No Covid exposure. Has not followed up with her doctor. Is not on any long-acting inhalers. 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 HEENT: None, Dental implants Psych: Bipolar disorder Musculoskeletal: None Derm: None - Past Surgical History Past Surgical History: Yes General: Other - Present Medications Home Medications: Ambulatory Orders Medication Instructions Recorded Confirmed Furosemide [Lasix] 40 mg PO DAILY 12/11/20 05/29/21 Spironolactone [Aldactone] 100 mg PO DAILY 12/11/20 05/29/21 amLODIPine [Norvasc] 10 mg PO DAILY 12/11/20 05/29/21 OLANZapine [Zyprexa] 10 mg PO QPM 05/29/21 05/30/21 hydrOXYzine HCL [Hydroxyzine HCl] 25 mg PO TID PRN 05/29/21 05/30/21 Buspirone HCl 10 mg PO BID 05/30/21 05/30/21 Potassium Chloride [Klor-Con 10] 10 meq PO DAILYWM 05/30/21 05/30/21 LORazepam [Ativan] 1 mg PO Q6H PRN #15 tablet 05/31/21 Nicotine 14 mg Patch [Nicoderm] 1 patch TOP DAILY PRN #10 patch 05/31/21 Pnv No.95/Ferrous Fum/Folic AC 1 each PO DAILY #30 tablet 05/31/21 [ Tablet] Thiamine [Vitamin B-1] 100 mg PO DAILY #30 tablet 05/31/21 Albuterol Sulf [Ventolin Hfa 1 - 2 puffs INH Q4HR PRN #1 inhaler 08/25/21 Inhaler] Fluticasone/Salmeterol [Advair 1 each IH BID #1 inh 08/25/21 250-50 Diskus] predniSONE [Deltasone] 10 mg PO [id number] #42 tab 08/25/21 - Allergies Allergies/Adverse Reactions: Allergies Allergy/AdvReac Type Severity Reaction Status Date / Time No Known Drug Allergies Allergy Verified 08/25/21 11:58 - Social History Does the pt smoke?: No Smoking Status: Never smoker Does the pt drink ETOH?: Yes Does the pt have substance abuse?: No - Immunizations Immunizations are current?: Yes - POLST Patient has POLST: No POLST Status: Full Code PD ED PE NORMAL - Vitals Vital signs reviewed: Yes - General General: Alert and oriented X 3, No acute distress - HEENT HEENT: Moist mucous membranes, Pharynx benign - Neck Neck: Supple, no meningeal sign - Cardiac Cardiac: RRR - Respiratory Respiratory: No respiratory distress, Other (mild diminished breath sounds B) - Abdomen Abdomen: Soft, Non tender, Non distended - Derm Derm: Warm and dry - Extremities Extremities: No edema, No calf tenderness / cord - Neuro Neuro: Alert and oriented X 3 Results - Vitals Vitals: Vital Signs - 24 hr 08/25/21 08/25/21 08/25/21 11:58 14:03 16:00 Temperature 36.7 C Heart Rate 88 100 102 H Respiratory 18 19 25 H Rate Blood Pressure 150/89 H 150/80 H 161/76 H O2 Saturation 95 99 97 08/25/21 17:22 Temperature 37.5 C Heart Rate 100 Respiratory 22 Rate Blood Pressure 136/74 H O2 Saturation 96 Oxygen O2 Source Room air - EKG (time done) 1249 Rate: Rate (enter#) (93) Rhythm: NSR [place]: Normal Intervals: Normal OK QRS: Normal Ischemia: Normal ST segments - Labs Labs: Laboratory Tests 08/25/21 08/25/21 08/25/21 12:57 12:57 12:57 WBC 10.2 RBC 4.77 Hgb 14.7 Hct 38.8 MCV 81.3 MCH 30.8 MCHC 37.9 H RDW 15.1 H Plt Count 135 MPV 9.0 Neut # (Auto) 8.7 H Lymph # (Auto) 0.8 L [place] # (Auto) 0.6 Eos # (Auto) 0.0 Baso # (Auto) 0.0 Absolute Nucleated RBC 0.00 Nucleated RBC % 0.0 Manual Slide Review Indicated WBC Morphology NORMAL APPEARANCE Platelet Estimate NORMAL (130-450,000) Platelet Morphology NORMAL APPEARANCE RBC Morph Micro Appear NORMAL APPEARANCE Sodium 119 L* Potassium 3.7 Chloride 85 L Carbon Dioxide 23 Anion Gap 11.0 BUN 8 Creatinine 0.8 Estimated GFR (MDRD) 72 L Glucose 166 H Calcium 8.9 Total Bilirubin 1.2 H AST 33 ALT 28 Alkaline Phosphatase 54 Troponin I High Sens 9.3 Total Protein 7.4 Albumin 4.1 Globulin 3.3 Albumin/Globulin Ratio 1.2 Lipase 36 Nasal Adenovirus (PCR) Nasal B. parapertussis DNA (PCR) Nasal Coronavir 229E PCR Nasal Coronavir HKU1 PCR Nasal Coronavir NL63 PCR Nasal Coronavir OC43 PCR Nasal Enterovir/Rhinovir PCR Nasal Influenza B PCR Nasal Influenza A PCR Nasal Parainfluen 1 PCR Nasal Parainfluen 2 PCR Nasal Parainfluen 3 PCR Nasal Parainfluen 4 PCR Nasal RSV (PCR) Nasal B.pertussis DNA PCR Nasal C.pneumoniae (PCR) Sameer Human Metapneumo PCR Nasal M.pneumoniae (PCR) Nasal SARS-CoV-2 (PCR) 08/25/21 08/25/21 14:19 16:02 WBC RBC Hgb Hct MCV MCH MCHC RDW Plt Count MPV Neut # (Auto) Lymph # (Auto) [place] # (Auto) Eos # (Auto) Baso # (Auto) Absolute Nucleated RBC Nucleated RBC % Manual Slide Review WBC Morphology Platelet Estimate Platelet Morphology RBC Morph Micro Appear Sodium 125 L Potassium 3.3 L Chloride 89 L Carbon Dioxide 26 Anion Gap 10.0 BUN 8 Creatinine 0.8 Estimated GFR (MDRD) 72 L Glucose 148 H Calcium 8.1 L Total Bilirubin AST ALT Alkaline Phosphatase Troponin I High Sens Total Protein Albumin Globulin Albumin/Globulin Ratio Lipase Nasal Adenovirus (PCR) NOT DETECTED Nasal B. parapertussis DNA (PCR) NOT DETECTED Nasal Coronavir 229E PCR NOT DETECTED Nasal Coronavir HKU1 PCR NOT DETECTED Nasal Coronavir NL63 PCR NOT DETECTED Nasal Coronavir OC43 PCR NOT DETECTED Nasal Enterovir/Rhinovir PCR NOT DETECTED Nasal Influenza B PCR NOT DETECTED Nasal Influenza A PCR NOT DETECTED Nasal Parainfluen 1 PCR NOT DETECTED Nasal Parainfluen 2 PCR NOT DETECTED Nasal Parainfluen 3 PCR NOT DETECTED Nasal Parainfluen 4 PCR NOT DETECTED Nasal RSV (PCR) NOT DETECTED Nasal B.pertussis DNA PCR NOT DETECTED Nasal C.pneumoniae (PCR) NOT DETECTED Sameer Human Metapneumo PCR NOT DETECTED Nasal M.pneumoniae (PCR) NOT DETECTED Nasal SARS-CoV-2 (PCR) NOT DETECTED - Rads (name of study) cxr Radiology: Final report received, EMP read contemporaneously, See rad report (No acute pulmonary process. ) PD MEDICAL DECISION MAKING - ED course Complexity details: reviewed results, re-evaluated patient, considered differential, d/w patient ED course: Patient is a 65-year-old female with a history of COPD appears to have a mild exacerbation. Will place on Advair in addition to her albuterol. We will provide a steroid taper as well. Laboratory testing shows hyponatremia. This is a chronic issue for the patient, thought to be secondary to her alcoholism. Her sodium improved with IV fluids. She has no neurological deficits. No confusion or altered mental status. No seizures. Patient is comfortable going home and will follow up with her doctor. Patient counseled regarding signs and symptoms for which I believe and urgent re-evaluation would be necessary. Patient with good understanding of and agreement to plan and is comfortable going home at this time This document was made in part using voice recognition software. While efforts are made to proofread this document, sound alike and grammatical errors may occur. Departure - Departure Disposition: 01 Home, Self Care Clinical Impression: COPD exacerbation, Hyponatremia Condition: Good Instructions: ED COPD Flare Follow-Up: Aminata Martinez MD [Primary Care Provider] - Within 3 Days Prescriptions: Albuterol Sulf [Ventolin Hfa Inhaler] 1 - 2 puffs INH Q4HR PRN #1 inhaler PRN Reason: Shortness Of Air/Wheezing Fluticasone/Salmeterol [Advair 250-50 Diskus] 1 each IH BID #1 inh predniSONE [Deltasone] 10 mg PO [id number] #42 tab Comments: Your prescriptions were sent to [facility] pharmacy. Please follow-up with your doctor for further care. You need your sodium rechecked within 3 days with your doctor. Return if you worsen. Discharge Date/Time: 08/25/21 17:22
[2021-08-25 13:25] LABS: ALBUMIN 4.1 g/dL (3.2-5.5); ALBUMIN/GLOBULIN RATIO 1.2 (1.0-2.2); BILIRUBIN,TOTAL 1.2 mg/dL (0.2-1.0); CALCIUM 8.9 mg/dL (8.5-10.3); CREATININE 0.8 mg/dL (0.4-1.0); POTASSIUM 3.7 mmol/L (3.5-5.0); TOTAL PROTEIN 7.4 g/dL (6.7-8.2)
--- NOTE | 2021-08-25 13:31 | XRAY Report ---
PROCEDURE: Chest 1 View X-Ray INDICATIONS: Chest pain TECHNIQUE: One view of the chest was acquired. COMPARISON: Chest x-ray 07/21/2021 FINDINGS: Surgical changes and devices: None. Lungs and pleura: No pleural effusions or pneumothorax. Lungs are clear. Mediastinum: Mediastinal contours appear normal. Heart size is normal. Bones and chest wall: No suspicious bony lesions. Overlying soft tissues appear unremarkable. IMPRESSION: No acute pulmonary process. Reviewed by: Viki Castro MD on 08/25/2021 1:29 PM PST Approved by: Viki Castro MD on 08/25/2021 1:29 PM [facility] Station ID: [id number]
[2021-08-25 13:36] LABS: BASOPHILS % (AUTO) 0.4 %; EOSINOPHILS % (AUTO) 0.4 %; HCT - HEMATOCRIT 38.8 % (37.0-47.0); HGB - HEMOGLOBIN 14.7 g/dL (12.0-16.0); LYMPHOCYTES # (AUTO) 0.8 10^3/uL (1.5-3.5); LYMPHOCYTES % (AUTO) 7.6 %; MEAN CORPUSCULAR HEMOGLOBIN 30.8 pg (27.0-31.0); MEAN CORPUSCULAR HGB CONC 37.9 g/dL (32.0-36.0); MEAN CORPUSCULAR VOLUME 81.3 fL (81.0-99.0); MONOCYTES # (AUTO) 0.6 10^3/uL (0.0-1.0); MONOCYTES % (AUTO) 5.8 %; NEUTROPHILS # (AUTO) 8.7 10^3/uL (1.5-6.6); NEUTROPHILS % (AUTO) 85.1 %; RED BLOOD COUNT 4.77 10^6/uL (4.20-5.40); RED CELL DISTRIBUTION WIDTH 15.1 % (12.0-15.0); WHITE BLOOD COUNT 10.2 x10^3/uL (4.8-10.8)
[2021-08-25 13:49] LABS: SLIDE REVIEW? Indicated
[2021-08-25 14:02] LABS: PLATELET ESTIMATE, MANUAL NORMAL (130-450,000) (NORMAL); PLATELET MORPHOLOGY NORMAL APPEARANCE (NORMAL); PLT - PLATELET COUNT 135 10^3/uL (130-450); RBC MORPHOLOGY (MULTIPLE) NORMAL APPEARANCE (NORMAL); WBC MORPHOLOGY (MULTIPLE) NORMAL APPEARANCE (NORMAL)
[2021-08-25] MEDS: SODIUM CHLORIDE 0.9% 1,000 ML IV STA ×2 (14:09→14:15)
[2021-08-25] MEDS ORDERED: SODIUM CHLORIDE 0.9% 1,000 ML IV STA (14:43)
[2021-08-25 15:22] LABS: B. PARAPERTUSSIS- RESP PCR PAN NOT DETECTED; B. PERTUSSIS- RESP PCR PANEL NOT DETECTED; C. PNEUMONIAE- RESP PCR PANEL NOT DETECTED; CORONAVIRUS 229E-RESP PCR NOT DETECTED; CORONAVIRUS HKU1-RESP PCR NOT DETECTED; CORONAVIRUS NL63-RESP PCR NOT DETECTED; CORONAVIRUS OC43-RESP PCR NOT DETECTED; HUMAN METAPNEUMOVIRUS NOT DETECTED; INFLUENZA A- RESP PCR PANEL NOT DETECTED; INFLUENZA B - RESP PCR PANEL NOT DETECTED; M. PNEUMONIAE- RESP PCR PANEL NOT DETECTED; PARAINFLUENZA VIRUS 1 NOT DETECTED; PARAINFLUENZA VIRUS 2 NOT DETECTED; PARAINFLUENZA VIRUS 3 NOT DETECTED; PARAINFLUENZA VIRUS 4 NOT DETECTED; RHINOVIRUS/ENTEROVIRUS NOT DETECTED; RSV- RESP PCR PANEL NOT DETECTED; SARS-CoV-2 -RESP PCR PANEL NOT DETECTED
[2021-08-25 16:16] LABS: CALCIUM 8.1 mg/dL (8.5-10.3); CREATININE 0.8 mg/dL (0.4-1.0); POTASSIUM 3.3 mmol/L (3.5-5.0)
[2021-08-25 17:23] VITALS: BP 136/74
== END 2021-08-25 17:22 | disposition home or self-care (01) ==
LOC: EDUNIT# → ED 11:51
DX: J44.1 Chronic obstructive pulmonary disease with (acute) exacerbation (principal); E87.1 Hypo-osmolality and hyponatremia; Z20.822 Contact with and (suspected) exposure to COVID-19
CPT/HCPCS: 0202U; 36415; 80048; 80053; 83690; 84484; 85025; 93005; 96360; 96361; 99283

== ENCOUNTER 2021-09-04 11:33 | Outpatient (CLI) | payer MEDICARE, MEDICAID | END 2021-09-04 11:34 | disposition critical access hospital (66) | LOC: EMS 11:33 | DX: R45.851 Suicidal ideations (principal) | CPT/HCPCS: A0425; A0429 ==

== ENCOUNTER 2021-09-04 11:54 | Emergency (ER) | payer MEDICARE, MEDICAID ==
[2021-09-04 12:03] VITALS: BP 180/80
[2021-09-04 12:08] LABS: MUDS CUTOFF CONCENTRATIONS CUTOFF CONC BELOW:
[2021-09-04 12:10] LABS: BILIRUBIN,URINE NEGATIVE (NEGATIVE); GLUCOSE, URINE (UA) NEGATIVE (NEGATIVE); KETONES,URINE (UA) NEGATIVE (NEGATIVE); LEUKOCYTE ESTERASE, URINE NEGATIVE (NEGATIVE); NITRITE,URINE NEGATIVE (NEGATIVE); OCCULT BLOOD,URINE TRACE-INTA (NEGATIVE); PROTEIN,URINE NEGATIVE (NEGATIVE); UROBILINOGEN,URINE 0.2 (NORMAL) E.U./dL (NORMAL)
[2021-09-04 12:11] LABS: CLARITY,URINE CLEAR (CLEAR)
[2021-09-04 12:21] LABS: BASOPHILS % (AUTO) 0.2 %; EOSINOPHILS % (AUTO) 0.1 %; HCT - HEMATOCRIT 41.6 % (37.0-47.0); HGB - HEMOGLOBIN 15.3 g/dL (12.0-16.0); LYMPHOCYTES # (AUTO) 0.6 10^3/uL (1.5-3.5); LYMPHOCYTES % (AUTO) 3.4 %; MEAN CORPUSCULAR HEMOGLOBIN 30.8 pg (27.0-31.0); MEAN CORPUSCULAR HGB CONC 36.8 g/dL (32.0-36.0); MEAN CORPUSCULAR VOLUME 83.7 fL (81.0-99.0); MEAN PLATELET VOLUME 8.6 fL (7.9-10.8); MONOCYTES # (AUTO) 0.8 10^3/uL (0.0-1.0); MONOCYTES % (AUTO) 4.6 %; NEUTROPHILS # (AUTO) 15.3 10^3/uL (1.5-6.6); PLT - PLATELET COUNT 165 10^3/uL (130-450); RED BLOOD COUNT 4.97 10^6/uL (4.20-5.40); RED CELL DISTRIBUTION WIDTH 14.7 % (12.0-15.0); WHITE BLOOD COUNT 16.8 x10^3/uL (4.8-10.8)
[2021-09-04 12:33] LABS: ACETAMINOPHEN < 10 ug/mL (10-30); ALBUMIN 4.5 g/dL (3.2-5.5); ALBUMIN/GLOBULIN RATIO 1.4 (1.0-2.2); ALKALINE PHOSPHATASE 47 IU/L (42-121); ALT ALANINE AMINOTRANSFERASE 27 IU/L (10-60); AST ASPARTATE AMINOTRANSFERASE 38 IU/L (10-42); BILIRUBIN,TOTAL 1.4 mg/dL (0.2-1.0); BUN - BLOOD UREA NITROGEN 15 mg/dL (6-20); CALCIUM 9.1 mg/dL (8.5-10.3); CARBON DIOXIDE - CO2 25 mmol/L (21-32); CHLORIDE 82 mmol/L (101-111); CREATININE 1.1 mg/dL (0.4-1.0); ETOH - ETHANOL < 5.0 mg/dL; GFR - MDRD 50 (>89); GLUCOSE 183 mg/dL (70-100); LIPASE 50 U/L (22-51); POTASSIUM 2.8 mmol/L (3.5-5.0); SALICYLATE < 6.0 mg/dL; SODIUM 123 mmol/L (135-145); TOTAL PROTEIN 7.8 g/dL (6.7-8.2)
[2021-09-04 12:35] LABS: AMPHETAMINE SCREEN,URINE NEGATIVE (NEGATIVE); BARBITURATE SCREEN,UR NEGATIVE (NEGATIVE); BENZODIAZEPINES SCREEN, URINE NEGATIVE (NEGATIVE); COCAINE SCREEN URINE NEGATIVE (NEGATIVE); METHADONE SCREEN, URINE NEGATIVE (NEGATIVE); METHAMPHETAMINES SCREEN, URINE NEGATIVE (NEGATIVE); OPIATE SCREEN, URINE NEGATIVE (NEGATIVE); OXYCODONE SCREEN, URINE NEGATIVE (NEGATIVE); PROPOXYPHENE SCREEN, URINE NEGATIVE (NEGATIVE); THC CANNABINOID SCREEN, URINE NEGATIVE (NEGATIVE); TRICYCLIC ANTIDEPRESSANT,URINE NEGATIVE (NEGATIVE)
--- NOTE | 2021-09-04 12:47 | ED Physician Documentation ---
PD HPI MHE - Stated complaint Stated Complaint: SI - Chief complaint Chief Complaint: MHE - History obtained from History obtained from: Patient - History of Present Illness Primary symptom: Other (trouble sleeping and higher than usual anxiety.). No: Suicidal ideation, Suicide attempt, Out of meds Timing - onset: How many days ago (has had increased anxiety and trouble bleep ing in aricular the past several days.) Contributing factors: No: Substance abuse - ETOH, Substance abuse - drugs Similar symptoms before: Diagnosis (bipolar disorder, insomnia, anxiety) Recently seen: Not recently seen Review of Systems Constitutional: denies: Fever, Chills Nose: denies: Rhinorrhea / runny nose, Congestion Throat: denies: Sore throat Respiratory: denies: Cough GI: reports: Nausea. denies: Abdominal Pain, Vomiting, Diarrhea Neurologic: reports: Generalized weakness. denies: Focal weakness, Numbness, Near syncope Psychiatric: reports: Anxiety, Insomnia. 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 HEENT: None, Dental implants Psych: Anxiety, Bipolar disorder Musculoskeletal: None Derm: None - Past Surgical History Past Surgical History: Yes General: Other - Present Medications Home Medications: Ambulatory Orders Medication Instructions Recorded Confirmed Furosemide [Lasix] 40 mg PO DAILY 12/11/20 05/29/21 Spironolactone [Aldactone] 100 mg PO DAILY 12/11/20 05/29/21 amLODIPine [Norvasc] 10 mg PO DAILY 12/11/20 05/29/21 OLANZapine [Zyprexa] 10 mg PO QPM 05/29/21 05/30/21 hydrOXYzine HCL [Hydroxyzine HCl] 25 mg PO TID PRN 05/29/21 05/30/21 Buspirone HCl 10 mg PO BID 05/30/21 05/30/21 Potassium Chloride [Klor-Con 10] 10 meq PO DAILYWM 05/30/21 05/30/21 LORazepam [Ativan] 1 mg PO Q6H PRN #15 tablet 05/31/21 Nicotine 14 mg Patch [Nicoderm] 1 patch TOP DAILY PRN #10 patch 05/31/21 Pnv No.95/Ferrous Fum/Folic AC 1 each PO DAILY #30 tablet 05/31/21 [ Tablet] Thiamine [Vitamin B-1] 100 mg PO DAILY #30 tablet 05/31/21 Albuterol Sulf [Ventolin Hfa 1 - 2 puffs INH Q4HR PRN #1 inhaler 08/25/21 Inhaler] Fluticasone/Salmeterol [Advair 1 each IH BID #1 inh 08/25/21 250-50 Diskus] predniSONE [Deltasone] 10 mg PO [id number] #42 tab 08/25/21 OLANZapine [Olanzapine] 20 mg PO QPM 15 Days #30 tablet 09/04/21 Potassium Citrate [Urocit-K] 5 meq PO BID 10 Days #20 tablet 09/04/21 - Allergies Allergies/Adverse Reactions: Allergies Allergy/AdvReac Type Severity Reaction Status Date / Time No Known Drug Allergies Allergy Verified 09/04/21 13:42 - Social History Does the pt smoke?: No Smoking Status: Never smoker Does the pt drink ETOH?: Yes Does the pt have substance abuse?: No - Immunizations Immunizations are current?: Yes - POLST Patient has POLST: No POLST Status: Full Code PD ED PE NORMAL - Vitals Vital signs reviewed: Yes - General General: Alert and oriented X 3, No acute distress, Well developed/nourished - HEENT HEENT: Pharynx benign, Dentition benign - Neck Neck: Supple, no meningeal sign, No adenopathy - Cardiac Cardiac: RRR, No murmur - Respiratory Respiratory: Clear bilaterally - Derm Derm: Normal color, Warm and dry - Neuro Neuro: Alert and oriented X 3, No motor deficit, No sensory deficit, Normal speech - Psych Psych: No: Normal mood (anxious but talkative and conversant. ) Results - Vitals Vitals: Vital Signs - 24 hr 09/04/21 09/04/21 11:59 12:02 Temperature 36.5 C 36.5 C Heart Rate 60 60 Respiratory 16 16 Rate Blood Pressure 180/80 H 180/80 H O2 Saturation 96 96 Oxygen O2 Source Room air - Labs Labs: Laboratory Tests 09/04/21 09/04/21 09/04/21 12:01 12:12 12:12 WBC 16.8 H RBC 4.97 Hgb 15.3 Hct 41.6 MCV 83.7 MCH 30.8 MCHC 36.8 H RDW 14.7 Plt Count 165 MPV 8.6 Neut # (Auto) 15.3 H Lymph # (Auto) 0.6 L [place] # (Auto) 0.8 Eos # (Auto) 0.0 Baso # (Auto) 0.0 Absolute Nucleated RBC 0.00 Nucleated RBC % 0.0 Sodium 123 L Potassium 2.8 L Chloride 82 L Carbon Dioxide 25 Anion Gap 16.0 H BUN 15 Creatinine 1.1 H Estimated GFR (MDRD) 50 L Glucose 183 H Calcium 9.1 Total Bilirubin 1.4 H AST 38 ALT 27 Alkaline Phosphatase 47 Total Protein 7.8 Albumin 4.5 Globulin 3.3 Albumin/Globulin Ratio 1.4 Lipase 50 TSH Urine Color LT. YELLOW Urine Clarity CLEAR Urine pH 6.0 Ur Specific [place] <=1.005 Urine Protein NEGATIVE Urine Glucose (UA) NEGATIVE Urine Ketones NEGATIVE Urine Occult Blood TRACE-INTA Urine Nitrite NEGATIVE Urine Bilirubin NEGATIVE Urine Urobilinogen 0.2 (NORMAL) Ur Leukocyte Esterase NEGATIVE Ur Microscopic Review NOT INDICATED Urine Culture Comments NOT INDICATED Salicylates < 6.0 Urine Opiates Screen NEGATIVE Ur Oxycodone Screen NEGATIVE Urine Methadone Screen NEGATIVE Ur Propoxyphene Screen NEGATIVE Acetaminophen < 10 L Ur Barbiturates Screen NEGATIVE Ur Tricyclics Screen NEGATIVE Ur Phencyclidine Scrn NEGATIVE Ur Amphetamine Screen NEGATIVE U Methamphetamines Scrn NEGATIVE U Benzodiazepines Scrn NEGATIVE Urine Cocaine Screen NEGATIVE U Cannabinoids Screen NEGATIVE Ethyl Alcohol < 5.0 09/04/21 12:12 WBC RBC Hgb Hct MCV MCH MCHC RDW Plt Count MPV Neut # (Auto) Lymph # (Auto) [place] # (Auto) Eos # (Auto) Baso # (Auto) Absolute Nucleated RBC Nucleated RBC % Sodium Potassium Chloride Carbon Dioxide Anion Gap BUN Creatinine Estimated GFR (MDRD) Glucose Calcium Total Bilirubin AST ALT Alkaline Phosphatase Total Protein Albumin Globulin Albumin/Globulin Ratio Lipase TSH 1.45 Urine Color Urine Clarity Urine pH Ur Specific [place] Urine Protein Urine Glucose (UA) Urine Ketones Urine Occult Blood Urine Nitrite Urine Bilirubin Urine Urobilinogen Ur Leukocyte Esterase Ur Microscopic Review Urine Culture Comments Salicylates Urine Opiates Screen Ur Oxycodone Screen Urine Methadone Screen Ur Propoxyphene Screen Acetaminophen Ur Barbiturates Screen Ur Tricyclics Screen Ur Phencyclidine Scrn Ur Amphetamine Screen U Methamphetamines Scrn U Benzodiazepines Scrn Urine Cocaine Screen U Cannabinoids Screen Ethyl Alcohol PD MEDICAL DECISION MAKING - ED course Complexity details: reviewed old records ([facility]), re-evaluated patient (can increase her Zyprexa and starterd with added dose 10 mg here and she can continue usual 10 mg tonight. Then Rx for starting 20 mg qHS starting tomorrow. ), considered differential (patient with trouble sleeping and feels that her Zyprexa recent Rx is helping but not well enough. Asks for advise about increased dose versus psych hospitalization for same med adjustment. Given labs/history, I think easiest to give Rx for higher med dose. ), d/w patient Departure - Departure Disposition: 01 Home, Self Care Clinical Impression: Anxiety, Chronic hyponatremia, Hypokalemia Bipolar disorder Qualifiers: Active/Remission status: remission status unspecified Qualified Code(s): F31.9 - Bipolar disorder, unspecified Insomnia Qualifiers: Insomnia type: unspecified Qualified Code(s): G47.00 - Insomnia, unspecified Condition: Stable Record reviewed to determine appropriate education?: Yes Follow-Up: Aminata Martinez MD [Primary Care Provider] - Prescriptions: OLANZapine [Olanzapine] 20 mg PO QPM 15 Days #30 tablet Potassium Citrate [Urocit-K] 5 meq PO BID 10 Days #20 tablet Comments: I would suggest holding your furosemide for 1 to 2 days and see if that helps in the short-term with your potassium and sodium levels that are both low. Also add a potassium supplement foot just for the next week. We can increase your olanzapine (Zyprexa) from the current 10 mg to 20 mg at night and see if that helps better with sleep and your general anxiety. Continue your other usual medicines except as noted above. Good potassium rich foods. Follow-up with your primary care in the next week, call for an appointment. II transmitted your prescriptions to [facility] pharmacy in [place]. Discharge Date/Time: 09/04/21 13:22
[2021-09-04] MEDS ORDERED: POTASSIUM CHLORIDE 20 MEQ TABLET PO STA (12:58)
[2021-09-04] MEDS ORDERED: OLANZapine ODT 5 MG TABLET TL ONE (12:58)
== END 2021-09-04 13:22 | disposition home or self-care (01) ==
LOC: EDUNIT# → ED 11:54
DX: F41.9 Anxiety disorder, unspecified (principal); G47.00 Insomnia, unspecified; F31.9 Bipolar disorder, unspecified; E87.6 Hypokalemia; I10 Essential (primary) hypertension
CPT/HCPCS: 36415; 80053; 80306; 80307; 80320; 80329; 81001; 81003; 83690; 84443; 85025; 87086; 99283

== ENCOUNTER 2021-09-04 13:25 | Emergency (ER) | payer MEDICARE, MEDICAID ==
--- NOTE | 2021-09-04 13:35 | ED Physician Documentation ---
PD HPI SYNCOPE - Stated complaint Stated Complaint: WAEKNESS, DIZZY, LIGHT HEADED - History obtained from History obtained from: Patient - History of Present Illness Timing - onset: Today (she was just seen in ER and starting to exit the hospital lobby and felt somewhat anxious and was concerned about catching bus. Checked back in to ask for Ambulance home and extra med.) Preceding symptoms: Light headed. No: Generalized weakness Contributing factors: Decreased PO intake, Emotional upset. No: Noxious stimulae Review of Systems Constitutional: denies: Fever Nose: denies: Rhinorrhea / runny nose, Congestion Throat: denies: Sore throat Cardiac: denies: Chest pain / pressure, Palpitations Respiratory: denies: Dyspnea, Cough GI: reports: Nausea. 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 HEENT: None, Dental implants Psych: Bipolar disorder Musculoskeletal: None Derm: None - Past Surgical History Past Surgical History: Yes General: Other - Present Medications Home Medications: Ambulatory Orders Medication Instructions Recorded Confirmed Furosemide [Lasix] 40 mg PO DAILY 12/11/20 05/29/21 Spironolactone [Aldactone] 100 mg PO DAILY 12/11/20 05/29/21 amLODIPine [Norvasc] 10 mg PO DAILY 12/11/20 05/29/21 OLANZapine [Zyprexa] 10 mg PO QPM 05/29/21 05/30/21 hydrOXYzine HCL [Hydroxyzine HCl] 25 mg PO TID PRN 05/29/21 05/30/21 Buspirone HCl 10 mg PO BID 05/30/21 05/30/21 Potassium Chloride [Klor-Con 10] 10 meq PO DAILYWM 05/30/21 05/30/21 LORazepam [Ativan] 1 mg PO Q6H PRN #15 tablet 05/31/21 Nicotine 14 mg Patch [Nicoderm] 1 patch TOP DAILY PRN #10 patch 05/31/21 Pnv No.95/Ferrous Fum/Folic AC 1 each PO DAILY #30 tablet 05/31/21 [ Tablet] Thiamine [Vitamin B-1] 100 mg PO DAILY #30 tablet 05/31/21 Albuterol Sulf [Ventolin Hfa 1 - 2 puffs INH Q4HR PRN #1 inhaler 08/25/21 Inhaler] Fluticasone/Salmeterol [Advair 1 each IH BID #1 inh 08/25/21 250-50 Diskus] predniSONE [Deltasone] 10 mg PO [id number] #42 tab 08/25/21 OLANZapine [Olanzapine] 20 mg PO QPM 15 Days #30 tablet 09/04/21 Potassium Citrate [Urocit-K] 5 meq PO BID 10 Days #20 tablet 09/04/21 - Allergies Allergies/Adverse Reactions: Allergies Allergy/AdvReac Type Severity Reaction Status Date / Time No Known Drug Allergies Allergy Verified 09/04/21 13:42 - Social History Does the pt smoke?: No Smoking Status: Never smoker Does the pt drink ETOH?: Yes Does the pt have substance abuse?: No - Immunizations Immunizations are current?: Yes - POLST Patient has POLST: No POLST Status: Full Code PD ED PE NORMAL - Vitals Vital signs reviewed: Yes - General General: Alert and oriented X 3, Well developed/nourished, Other (seems anxious) - Neck Neck: Supple, no meningeal sign, No adenopathy - Cardiac Cardiac: RRR, No murmur - Respiratory Respiratory: Clear bilaterally - Derm Derm: Normal color, Warm and dry Results - Vitals Vitals: Vital Signs - 24 hr 09/04/21 09/04/21 13:35 14:00 Temperature 35.9 C L Heart Rate 120 H 128 H Respiratory 16 18 Rate Blood Pressure 160/87 H 158/92 H O2 Saturation 99 100 Oxygen O2 Source Room air PD MEDICAL DECISION MAKING - ED course Complexity details: considered differential (patient agrees with dose of Valium for anxiety and then to see if increased Zyprexa dose helpful starting this evening. ), d/w patient Departure - Departure Disposition: 01 Home, Self Care Clinical Impression: Anxiety Condition: Stable Comments: Refer to the instructions from the just recent visit. Discharge Date/Time: 09/04/21 14:30
[2021-09-04] MEDS ORDERED: diazePAM INJ 5 MG/ML SYRINGE IM STA (13:49)
[2021-09-04 14:01] VITALS: BP 158/92
== END 2021-09-04 14:30 | disposition home or self-care (01) ==
LOC: ED 13:25
DX: F41.9 Anxiety disorder, unspecified (principal); I10 Essential (primary) hypertension; G47.00 Insomnia, unspecified; F31.9 Bipolar disorder, unspecified; E87.6 Hypokalemia
CPT/HCPCS: 36415; 80053; 80306; 80307; 81003; 83690; 84443; 85025; 96372; 99283; A9270; G0480; 80320; 80329; 81001; 87086

== ENCOUNTER 2021-09-05 05:58 | Outpatient (CLI) | payer MEDICARE, MEDICAID | END 2021-09-05 05:59 | disposition critical access hospital (66) | LOC: EMS 05:58 | DX: R45.851 Suicidal ideations (principal) | CPT/HCPCS: A0425; A0429 ==

== ENCOUNTER 2021-09-05 06:15 | Emergency (ER) | payer MEDICARE, MEDICAID ==
[2021-09-05 06:39] LABS: MUDS CUTOFF CONCENTRATIONS CUTOFF CONC BELOW:
[2021-09-05] MEDS ORDERED: LORazepam 0.5 MG TABLET PO STA (06:41)
[2021-09-05 06:45] LABS: BILIRUBIN,URINE NEGATIVE (NEGATIVE); GLUCOSE, URINE (UA) NEGATIVE (NEGATIVE); KETONES,URINE (UA) NEGATIVE (NEGATIVE); LEUKOCYTE ESTERASE, URINE NEGATIVE (NEGATIVE); NITRITE,URINE NEGATIVE (NEGATIVE); OCCULT BLOOD,URINE NEGATIVE (NEGATIVE); PROTEIN,URINE NEGATIVE (NEGATIVE); UROBILINOGEN,URINE 0.2 (NORMAL) E.U./dL (NORMAL)
[2021-09-05 06:55] LABS: BASOPHILS % (AUTO) 0.1 %; EOSINOPHILS % (AUTO) 0.1 %; HCT - HEMATOCRIT 43.3 % (37.0-47.0); HGB - HEMOGLOBIN 15.4 g/dL (12.0-16.0); LYMPHOCYTES # (AUTO) 0.3 10^3/uL (1.5-3.5); LYMPHOCYTES % (AUTO) 2.5 %; MEAN CORPUSCULAR HEMOGLOBIN 30.6 pg (27.0-31.0); MEAN CORPUSCULAR HGB CONC 35.6 g/dL (32.0-36.0); MEAN CORPUSCULAR VOLUME 85.9 fL (81.0-99.0); MEAN PLATELET VOLUME 8.9 fL (7.9-10.8); MONOCYTES # (AUTO) 0.3 10^3/uL (0.0-1.0); MONOCYTES % (AUTO) 2.6 %; NEUTROPHILS # (AUTO) 10.5 10^3/uL (1.5-6.6); NEUTROPHILS % (AUTO) 93.9 %; PLT - PLATELET COUNT 136 10^3/uL (130-450); RED BLOOD COUNT 5.04 10^6/uL (4.20-5.40); RED CELL DISTRIBUTION WIDTH 15.3 % (12.0-15.0); WHITE BLOOD COUNT 11.2 x10^3/uL (4.8-10.8)
[2021-09-05 06:57] LABS: CLARITY,URINE CLEAR (CLEAR)
[2021-09-05 06:59] LABS: AMPHETAMINE SCREEN,URINE NEGATIVE (NEGATIVE); BARBITURATE SCREEN,UR NEGATIVE (NEGATIVE); BENZODIAZEPINES SCREEN, URINE NEGATIVE (NEGATIVE); COCAINE SCREEN URINE NEGATIVE (NEGATIVE); METHADONE SCREEN, URINE NEGATIVE (NEGATIVE); METHAMPHETAMINES SCREEN, URINE NEGATIVE (NEGATIVE); OPIATE SCREEN, URINE NEGATIVE (NEGATIVE); OXYCODONE SCREEN, URINE NEGATIVE (NEGATIVE); PROPOXYPHENE SCREEN, URINE NEGATIVE (NEGATIVE); THC CANNABINOID SCREEN, URINE NEGATIVE (NEGATIVE); TRICYCLIC ANTIDEPRESSANT,URINE NEGATIVE (NEGATIVE)
[2021-09-05 07:04] LABS: ACETAMINOPHEN < 10 ug/mL (10-30); BUN - BLOOD UREA NITROGEN 10 mg/dL (6-20); CALCIUM 9.3 mg/dL (8.5-10.3); CARBON DIOXIDE - CO2 28 mmol/L (21-32); CHLORIDE 87 mmol/L (101-111); CREATININE 1.1 mg/dL (0.4-1.0); ETOH - ETHANOL < 5.0 mg/dL; GFR - MDRD 50 (>89); GLUCOSE 182 mg/dL (70-100); POTASSIUM 3.2 mmol/L (3.5-5.0); SALICYLATE < 6.0 mg/dL; SODIUM 129 mmol/L (135-145)
[2021-09-05] MEDS ORDERED: POTASSIUM CHLORIDE 20 MEQ TABLET PO STA ×2 (07:26→14:49)
--- NOTE | 2021-09-05 07:31 | ED Physician Documentation ---
PD HPI MHE - Stated complaint Stated Complaint: SI - Chief complaint Chief Complaint: MHE - History obtained from History obtained from: Patient - Additional information Additional information: 66yo female with bipolar D/O. Recent transition off of trazodone and can't sleep x 4 days. Has vague SI with possible plan to O/D. No hx prior suicide attempts. 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 HEENT: None, Dental implants Psych: Bipolar disorder Musculoskeletal: None Derm: None - Past Surgical History Past Surgical History: Yes General: Other - Present Medications Home Medications: Ambulatory Orders Medication Instructions Recorded Confirmed Furosemide [Lasix] 40 mg PO DAILY 12/11/20 09/05/21 Spironolactone [Aldactone] 100 mg PO DAILY 12/11/20 09/05/21 amLODIPine [Norvasc] 10 mg PO DAILY 12/11/20 09/05/21 Buspirone HCl 10 mg PO BID 05/30/21 09/05/21 Potassium Chloride [Klor-Con 10] 10 meq PO DAILYWM 05/30/21 09/05/21 Fluticasone/Salmeterol [Advair 1 each IH BID #1 inh 08/25/21 09/05/21 250-50 Diskus] predniSONE [Deltasone] 10 mg PO [id number] #42 tab 08/25/21 09/05/21 OLANZapine [Olanzapine] 20 mg PO QPM 15 Days #30 tablet 09/04/21 09/05/21 - Allergies Allergies/Adverse Reactions: Allergies Allergy/AdvReac Type Severity Reaction Status Date / Time No Known Drug Allergies Allergy Verified 09/04/21 13:42 - Social History Does the pt smoke?: No Smoking Status: Never smoker Does the pt drink ETOH?: Yes Does the pt have substance abuse?: No - Immunizations Immunizations are current?: Yes - POLST Patient has POLST: No POLST Status: Full Code PD ED PE NORMAL - Vitals Vital signs reviewed: Yes - General General: Alert and oriented X 3, No acute distress - HEENT HEENT: PERRL, EOMI - Neck Neck: Supple, no meningeal sign, No bony TTP - Cardiac Cardiac: RRR, No murmur - Respiratory Respiratory: No respiratory distress, Clear bilaterally - Abdomen Abdomen: Normal bowel sounds, Soft, Non tender - Back Back: No CVA TTP, No spinal TTP - Derm Derm: Normal color, Warm and dry - Extremities Extremities: No edema, No calf tenderness / cord - Neuro Neuro: Alert and oriented X 3, Normal speech - Psych Psych: Other (anxious) Results - Vitals Vitals: Vital Signs - 24 hr 09/05/21 09/05/21 09/05/21 06:27 07:34 15:00 Temperature 36.4 C L 36.6 C 36.9 C Heart Rate 125 H 116 H 100 Respiratory 22 18 20 Rate Blood Pressure 158/76 H 146/73 H 137/65 H O2 Saturation 98 99 98 Oxygen O2 Source Room air - Labs Labs: Laboratory Tests 09/05/21 09/05/21 09/05/21 06:25 06:25 06:44 WBC 11.2 H RBC 5.04 Hgb 15.4 Hct 43.3 MCV 85.9 MCH 30.6 MCHC 35.6 RDW 15.3 H Plt Count 136 MPV 8.9 Neut # (Auto) 10.5 H Lymph # (Auto) 0.3 L [place] # (Auto) 0.3 Eos # (Auto) 0.0 Baso # (Auto) 0.0 Absolute Nucleated RBC 0.00 Nucleated RBC % 0.0 Sodium Potassium Chloride Carbon Dioxide Anion Gap BUN Creatinine Estimated GFR (MDRD) Glucose Calcium TSH Urine Color YELLOW Urine Clarity CLEAR Urine pH 6.0 Ur Specific [place] <=1.005 Urine Protein NEGATIVE Urine Glucose (UA) NEGATIVE Urine Ketones NEGATIVE Urine Occult Blood NEGATIVE Urine Nitrite NEGATIVE Urine Bilirubin NEGATIVE Urine Urobilinogen 0.2 (NORMAL) Ur Leukocyte Esterase NEGATIVE Ur Microscopic Review NOT INDICATED Urine Culture Comments NOT INDICATED Salicylates Urine Opiates Screen NEGATIVE Ur Oxycodone Screen NEGATIVE Urine Methadone Screen NEGATIVE Ur Propoxyphene Screen NEGATIVE Acetaminophen Ur Barbiturates Screen NEGATIVE Ur Tricyclics Screen NEGATIVE Ur Phencyclidine Scrn NEGATIVE Ur Amphetamine Screen NEGATIVE U Methamphetamines Scrn NEGATIVE U Benzodiazepines Scrn NEGATIVE Urine Cocaine Screen NEGATIVE U Cannabinoids Screen NEGATIVE Ethyl Alcohol SARS-CoV-2 (PCR) 02/18/22 02/18/22 02/18/22 06:44 06:44 06:57 WBC RBC Hgb Hct MCV MCH MCHC RDW Plt Count MPV Neut # (Auto) Lymph # (Auto) [place] # (Auto) Eos # (Auto) Baso # (Auto) Absolute Nucleated RBC Nucleated RBC % Sodium 129 L Potassium 3.2 L Chloride 87 L Carbon Dioxide 28 Anion Gap 14.0 H BUN 10 Creatinine 1.1 H Estimated GFR (MDRD) 50 L Glucose 182 H Calcium 9.3 TSH 1.68 Urine Color Urine Clarity Urine pH Ur Specific [place] Urine Protein Urine Glucose (UA) Urine Ketones Urine Occult Blood Urine Nitrite Urine Bilirubin Urine Urobilinogen Ur Leukocyte Esterase Ur Microscopic Review Urine Culture Comments Salicylates < 6.0 Urine Opiates Screen Ur Oxycodone Screen Urine Methadone Screen Ur Propoxyphene Screen Acetaminophen < 10 L Ur Barbiturates Screen Ur Tricyclics Screen Ur Phencyclidine Scrn Ur Amphetamine Screen U Methamphetamines Scrn U Benzodiazepines Scrn Urine Cocaine Screen U Cannabinoids Screen Ethyl Alcohol < 5.0 SARS-CoV-2 (PCR) NOT DETECTED 09/05/21 15:43 WBC RBC Hgb Hct MCV MCH MCHC RDW Plt Count MPV Neut # (Auto) Lymph # (Auto) [place] # (Auto) Eos # (Auto) Baso # (Auto) Absolute Nucleated RBC Nucleated RBC % Sodium 125 L Potassium 3.6 Chloride 87 L Carbon Dioxide 29 Anion Gap 9.0 BUN 17 Creatinine 1.1 H Estimated GFR (MDRD) 50 L Glucose 206 H Calcium 8.7 TSH Urine Color Urine Clarity Urine pH Ur Specific [place] Urine Protein Urine Glucose (UA) Urine Ketones Urine Occult Blood Urine Nitrite Urine Bilirubin Urine Urobilinogen Ur Leukocyte Esterase Ur Microscopic Review Urine Culture Comments Salicylates Urine Opiates Screen Ur Oxycodone Screen Urine Methadone Screen Ur Propoxyphene Screen Acetaminophen Ur Barbiturates Screen Ur Tricyclics Screen Ur Phencyclidine Scrn Ur Amphetamine Screen U Methamphetamines Scrn U Benzodiazepines Scrn Urine Cocaine Screen U Cannabinoids Screen Ethyl Alcohol SARS-CoV-2 (PCR) PD MEDICAL DECISION MAKING - ED course ED course: 66-year-old woman with bipolar disorder presents with severe anxiety. Unable to sleep. Work-up here demonstrates a sodium of 129 which is chronic and actually somewhat better than her usual and therefore not specifically addressed or treated. Her potassium was mildly low at 3.2 and this was repleted orally. Social work became involved and found a bed for her at [facility]. Kendall did request initially that we correct her sodium, but discussed that this is a chronic phenomenon that does not require correction and in fact rapid correction of sodium's can be detrimental to the patient. She is medically stable for psychiatric transfer and evaluation. Departure - Departure Disposition: 65 Psych Hosp/Unit DC/Xfer Clinical Impression: Bipolar 1 disorder, Anxiety Condition: Stable
[2021-09-05] MEDS ORDERED: NICOTINE 14 MG PATCH TOP STA (07:32)
[2021-09-05] MEDS ORDERED: haloperidoL 1 MG TABLET PO STA (07:46)
[2021-09-05] MEDS ORDERED: busPIRone 5 MG TABLET PO SCH (13:00)
[2021-09-05 16:01] LABS: CALCIUM 8.7 mg/dL (8.5-10.3); CREATININE 1.1 mg/dL (0.4-1.0); POTASSIUM 3.6 mmol/L (3.5-5.0)
[2021-09-05] MEDS ORDERED: OLANZapine ODT 5 MG TABLET TL STA (17:55)
[2021-09-05 20:08] VITALS: BP 119/58
== END 2021-09-05 20:08 ==
LOC: EDUNIT# → ED 06:15
DX: F31.89 Other bipolar disorder (principal); F41.9 Anxiety disorder, unspecified; I10 Essential (primary) hypertension; Z20.822 Contact with and (suspected) exposure to COVID-19
CPT/HCPCS: 36415; 80048; 80306; 80307; 81003; 84443; 85025; 87635; 99285; A9270; G0480; 80320; 80329; 81001; 87086

== ENCOUNTER 2021-09-23 10:42 | Outpatient (CLI) | payer MEDICARE, MEDICAID | END 2021-09-23 10:43 | disposition critical access hospital (66) | LOC: EMS 10:42 | DX: S51.811A Laceration without foreign body of right forearm, initial encounter (principal); W18.39XA Other fall on same level, initial encounter; Y92.031 Bathroom in apartment as the place of occurrence of the external cause | CPT/HCPCS: A0425; A0429 ==

== ENCOUNTER 2021-09-23 11:00 | Inpatient (IN) | payer MEDICARE, MEDICAID ==
[~2021-09-23 11:00] MED LIST: POTASSIUM CHLORIDE 20 MEQ TABLET PO ONE
--- NOTE | 2021-09-23 11:30 | ED Physician Documentation ---
PD HPI Fall - Stated complaint Stated Complaint: GLF - Chief complaint Chief Complaint: Trauma Hd/Nk - History obtained from History obtained from: Patient - History of Present Illness Mechanism of injury: Lost balance (she is not sure why she fell. Has been drinking alcohol, but this is very common for her. Feeling generally weak and off balance compared to usual.) Fall distance: Standing position Where injury occurred: Home (in the bathroom) Timing - onset: Today (she was feeling off balance the past couple of days, with falling yesterday. Bruises on arms. Got a small skin tear right forearm today.) Injury(ies) location: Right Upper Extremity (skin tear right forearm.), Left Foot (4th/5th toes with abrasions. No deformity. No bony tenderness.). No: Head, Neck, Chest, Abdomen Associated symptoms: Weakness (generalized), Dyspnea (chronic due to COPD, and this was worsened by backboard/color placed by EMS.). No: Nausea / vomiting Contributing factors: Intoxicated. No: Anticoagulated Similar symptoms before: Diagnosis (history of some balance issues with alcohol use. Has chronic low sodium in range 125-133. Denies recent injury head.) Recently seen: Not recently seen Review of Systems Constitutional: denies: Fever, Chills Eyes: denies: Loss of vision Ears: denies: Tinnitus/ringing (nor vertigo) Nose: denies: Rhinorrhea / runny nose, Congestion Throat: denies: Sore throat Cardiac: denies: Chest pain / pressure, Palpitations, Pedal edema, Calf pain Respiratory: reports: Dyspnea (chronic, with home MDI use (Advair and albuterol(. Ran out of Adviar a week ago, awaiting refill.), Wheezing. denies: Cough GI: reports: Nausea. denies: Abdominal Pain, Vomiting, Diarrhea : denies: Dysuria, Frequency Skin: reports: Lesions (bruises on arms from recent falls. No bony tenderness.), Laceration (s) (today when fell) Musculoskeletal: denies: Neck pain, Back pain Neurologic: reports: Generalized weakness, Altered mental status (feeling lightheaded and somewhat confused the past few days.). 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 HEENT: None, Dental implants Psych: Bipolar disorder Musculoskeletal: None Derm: None - Past Surgical History Past Surgical History: Yes General: Other - Present Medications Home Medications: Ambulatory Orders Medication Instructions Recorded Confirmed Furosemide [Lasix] 40 mg PO DAILY 12/11/20 09/23/21 Spironolactone [Aldactone] 100 mg PO DAILY 12/11/20 09/23/21 amLODIPine [Norvasc] 10 mg PO DAILY 12/11/20 09/23/21 Buspirone HCl 10 mg PO BID 05/30/21 09/23/21 Potassium Chloride [Klor-Con 10] 10 meq PO DAILYWM 05/30/21 09/23/21 Fluticasone/Salmeterol [Advair 1 each IH BID #1 inh 08/25/21 09/23/21 250-50 Diskus] OLANZapine [Olanzapine] 20 mg PO QPM 15 Days #30 tablet 09/04/21 09/23/21 Albuterol Sulfate [Proair Hfa 1 - 2 puffs INH Q4H PRN 09/23/21 09/23/21 Inhaler] - Allergies Allergies/Adverse Reactions: Allergies Allergy/AdvReac Type Severity Reaction Status Date / Time No Known Drug Allergies Allergy Verified 09/23/21 11:10 - Living Situation Living Situation: reports: Alone Living Arrangement: reports: At home - Social History Does the pt smoke?: No Smoking Status: Former smoker Does the pt drink ETOH?: Yes ETOH Use: Beer (regular alcohol use. At first she said she only drinks on weekends, until I pointed out that it was Wednesday right now, and she said "okay, maybe more often".) Does the pt have substance abuse?: No - Family History Family history: denies: CAD, CVA - Immunizations Immunizations are current?: Yes - POLST Patient has POLST: No POLST Status: Full Code PD ED PE NORMAL - Vitals Vital signs reviewed: Yes - General General: Alert and oriented X 3, Well developed/nourished, Other (she is mainly anxious about lying flat with board/collar and her COPD is bothering her in this position. ALso says she needs a nicotine patch. Moderately restless on cart. ) - HEENT HEENT: Atraumatic, PERRL, EOMI, Moist mucous membranes, Pharynx benign - Neck Neck: Supple, no meningeal sign, No bony TTP, No adenopathy, C-Spine cleared by NEXUS criteria (she has some alcohol in system but does not seem distracted. ) - Cardiac Cardiac: RRR, No murmur - Respiratory Respiratory: Other (no chestwall tenderness. ). No: Clear bilaterally (exp wheezing noted diffusely. No accessory muscle use. Able to talk in sentences. ) - Abdomen Abdomen: Soft, Non tender - Back Back: No CVA TTP, No spinal TTP - Derm Derm: Normal color, Warm and dry - Extremities Extremities: No edema, No calf tenderness / cord, Other (left 4th/5th toes with abrasions, no noted bony tenderness. Rght forearm with 4-5 cm thin skin, partial thickness tear. Too thin to suture. No FB, NO bleeding currently. ) - Neuro Neuro: No motor deficit, No sensory deficit, Normal speech (somewhat slower answers to some questions. ). No: Alert and oriented X 3 (person and place, not time. ) Results - Vitals Vitals: Vital Signs - 24 hr 09/23/21 09/23/21 09/23/21 11:06 12:09 12:14 Temperature 36.1 C L Heart Rate 110 H 103 H 87 Respiratory 20 18 23 Rate Blood Pressure 166/83 H 163/78 H O2 Saturation 94 97 Oxygen O2 Source Room air - Labs Labs: Laboratory Tests 09/23/21 09/23/21 09/23/21 11:45 11:45 12:50 WBC 19.7 H RBC 4.84 Hgb 15.1 Hct 37.8 MCV 78.1 L MCH 31.2 H MCHC 39.9 H RDW 13.5 Plt Count 220 MPV 8.5 Neut # (Auto) 17.7 H Lymph # (Auto) 0.8 L [place] # (Auto) 0.8 Eos # (Auto) 0.1 Baso # (Auto) 0.1 Absolute Nucleated RBC 0.00 Nucleated RBC % 0.0 Manual Slide Review Indicated WBC Morphology NORMAL APPEARANCE Platelet Estimate NORMAL (130-450,000) Platelet Morphology NORMAL APPEARANCE RBC Morph Micro Appear NORMAL APPEARANCE Sodium 108 L* Potassium 3.4 L Chloride 70 L* Carbon Dioxide 20 L Anion Gap 18.0 H BUN 8 Creatinine 0.6 Estimated GFR (MDRD) 100 Glucose 172 H Calcium 8.5 Magnesium 2.0 Total Bilirubin 1.6 H AST 50 H ALT 32 Alkaline Phosphatase 58 Total Protein 7.3 Albumin 4.2 Globulin 3.1 Albumin/Globulin Ratio 1.4 Lipase 44 Ethyl Alcohol 110.6 SARS-CoV-2 (PCR) NOT DETECTED - Rads (name of study) chest xray Radiology: Prelim report reviewed (no acute process. No pneumonia. ), See rad report PD MEDICAL DECISION MAKING - ED course Complexity details: reviewed results (Sodium critically low. alcohol moderately high but not too high for her. IV NS started at slow rate.), re-evaluated patient (right forearm partial thickness skin tear was cleansed, steri-stripped and dressing by nursing. Toe abrasions cleansed. SHe is conversant and appropriate. ), considered differential, d/w patient - Critical Care Time(min): 30 Time Includes: Direct patient care, Reassess patient, Document care, Coordinate care, Medical consult Data interpretation: Labs, CXR Departure - Departure Disposition: 66 [facility] DC/Xfer Clinical Impression: Hyponatremia, Ataxia, Alcoholism Fall Qualifiers: Encounter type: initial encounter Qualified Code(s): W19.XXXA - Unspecified fall, initial encounter Skin tear of right forearm without complication Qualifiers: Encounter type: initial encounter Qualified Code(s): S51.811A - Laceration without foreign body of right forearm, initial encounter Toe abrasion Qualifiers: Encounter type: initial encounter Laterality: left Qualified Code(s): S90.415A - Abrasion, left lesser toe(s), initial encounter Condition: Stable Discharge Date/Time: 09/23/21 14:08
[2021-09-23] MEDS ORDERED: IPRATROPIUM/ALBUTEROL 3 ML NEB INH STA (11:31)
[2021-09-23] MEDS ORDERED: NICOTINE 14 MG PATCH TOP STA (11:31)
[2021-09-23] MEDS ORDERED: ACETAMINOPHEN 325 MG TABLET PO STA (11:31)
[2021-09-23 11:50] LABS: BASOPHILS # (AUTO) 0.1 10^3/uL (0.0-0.1); BASOPHILS % (AUTO) 0.4 %; EOSINOPHILS # (AUTO) 0.1 10^3/uL (0.0-0.7); EOSINOPHILS % (AUTO) 0.4 %; HCT - HEMATOCRIT 37.8 % (37.0-47.0); HGB - HEMOGLOBIN 15.1 g/dL (12.0-16.0); LYMPHOCYTES # (AUTO) 0.8 10^3/uL (1.5-3.5); LYMPHOCYTES % (AUTO) 3.8 %; MEAN CORPUSCULAR HEMOGLOBIN 31.2 pg (27.0-31.0); MEAN CORPUSCULAR HGB CONC 39.9 g/dL (32.0-36.0); MEAN CORPUSCULAR VOLUME 78.1 fL (81.0-99.0); MEAN PLATELET VOLUME 8.5 fL (7.9-10.8); MONOCYTES # (AUTO) 0.8 10^3/uL (0.0-1.0); MONOCYTES % (AUTO) 4.1 %; NEUTROPHILS # (AUTO) 17.7 10^3/uL (1.5-6.6); NEUTROPHILS % (AUTO) 89.9 %; PLT - PLATELET COUNT 220 10^3/uL (130-450); RED BLOOD COUNT 4.84 10^6/uL (4.20-5.40); RED CELL DISTRIBUTION WIDTH 13.5 % (12.0-15.0); WHITE BLOOD COUNT 19.7 x10^3/uL (4.8-10.8)
--- NOTE | 2021-09-23 12:00 | XRAY Report ---
PROCEDURE: Chest 1 View X-Ray INDICATIONS: chest pain TECHNIQUE: One view of the chest was acquired. COMPARISON: 2021 FINDINGS: Surgical changes and devices: None. Lungs and pleura: No pleural effusions or pneumothorax. Lungs are clear. Mediastinum: Mediastinal contours appear normal. Heart size is normal. Bones and chest wall: No suspicious bony lesions. Overlying soft tissues appear unremarkable. IMPRESSION: No acute cardiopulmonary process demonstrated radiographically. Reviewed by: Jarod Barnard MD on 09/23/2021 11:58 AM [facility] Approved by: Jarod Barnard MD on 09/23/2021 11:58 AM [facility] Station ID: [id number]
[2021-09-23 12:08] LABS: ALBUMIN 4.2 g/dL (3.2-5.5); ALBUMIN/GLOBULIN RATIO 1.4 (1.0-2.2); BILIRUBIN,TOTAL 1.6 mg/dL (0.2-1.0); CALCIUM 8.5 mg/dL (8.5-10.3); CREATININE 0.6 mg/dL (0.4-1.0); ETOH - ETHANOL 110.6 mg/dL; POTASSIUM 3.4 mmol/L (3.5-5.0); TOTAL PROTEIN 7.3 g/dL (6.7-8.2)
[2021-09-23] MEDS ORDERED: LORazepam 2 MG/ML VIAL IVP STA (12:11)
[2021-09-23] MEDS ORDERED: SODIUM CHLORIDE 0.9% 1,000 ML IV STA (12:11)
[2021-09-23 12:22] LABS: PLATELET ESTIMATE, MANUAL NORMAL (130-450,000) (NORMAL); PLATELET MORPHOLOGY NORMAL APPEARANCE (NORMAL); RBC MORPHOLOGY (MULTIPLE) NORMAL APPEARANCE (NORMAL); SLIDE REVIEW? Indicated; WBC MORPHOLOGY (MULTIPLE) NORMAL APPEARANCE (NORMAL)
[2021-09-23] MEDS ORDERED: ONDANSETRON 4 MG/2 ML VIAL IVP PRN (13:10)
--- NOTE | 2021-09-23 13:19 | HISTORY & PHYSICAL EXAMINATION ---
Chief Complaint - Chief Complaint Chief Complaint: fall History of Present Illness - Admitted From Admitted From:: [facility] ED - History Obtained From Records Reviewed: yes History obtained from: patient - History of Present Illness HPI Comment/Other: Patient is a 66-year-old female who appears much older than stated age. She presented to the ED after a fall. She had been drinking today. When she stood up to go to the bathroom, she became dizzy and fell. It was unwitnessed. She reports hitting her head. She has a significant laceration on her left small toe which has been bleeding. She has significant bruising in her upper extremities. In the ED work-up included a BMP which showed a sodium level of 108. She has chronically hyponatremia Likely secondary to alcohol abuse. However her sodium level typically is in the 120s. She was also noted to have a WBC of 19.5.As a result of her presentation she was admitted to the ICU for further management. At bedside she is mildly tremulous and appears very disheveled. She denies chest pain, dyspnea, abdominal pain, nausea, vomiting, fever or chills. She is also slightly tachycardic. History - Past Medical History Cardiovascular: reports: Hypertension, High cholesterol, Atrial fibrillation Respiratory: reports: Asthma, COPD Neuro: reports: Headaches, Tremors Endocrine/Autoimmune: reports: None GI: reports: Hepatitis [employer]: reports: Other : reports: None HEENT: reports: None, Dental implants Psych: reports: Bipolar disorder Musculoskeletal: reports: None Derm: reports: None MRSA Hx?: No - Past Surgical History General: reports: Other - Family & Social History Family History Comment/Other: Her mother from emphysema. Her father had an unknown type of cancer. Living Situation: With family Social History Notes: She has been smoking on and off for about 50 years. She smoked as much as 2 packs a day. She is currently using nicotine gum to help alleviate the craving for nicotine. She has been drinking about 3 beers a day when she does drink alcohol. She states she only drinks 3 times a week. - POLST Patient has POLST: No POLST Status: Full Code Meds/Allgy - Home Medications Home Medications: Ambulatory Orders Medication Instructions Recorded Confirmed Furosemide [Lasix] 40 mg PO DAILY 12/11/20 09/23/21 Spironolactone [Aldactone] 100 mg PO DAILY 12/11/20 09/23/21 amLODIPine [Norvasc] 10 mg PO DAILY 12/11/20 09/23/21 Buspirone HCl 10 mg PO BID 05/30/21 09/23/21 Potassium Chloride [Klor-Con 10] 10 meq PO DAILYWM 05/30/21 09/23/21 Fluticasone/Salmeterol [Advair 1 each IH BID #1 inh 08/25/21 09/23/21 250-50 Diskus] OLANZapine [Olanzapine] 20 mg PO QPM 15 Days #30 tablet 09/04/21 09/23/21 Albuterol Sulfate [Proair Hfa 1 - 2 puffs INH Q4H PRN 09/23/21 09/23/21 Inhaler] - Allergies Allergies/Adverse Reactions: Allergies Allergy/AdvReac Type Severity Reaction Status Date / Time No Known Drug Allergies Allergy Verified 09/23/21 11:10 Review of Systems - Constitutional Constitutional: denies: Fatigue, Fever, Chills - Eyes Eyes: denies: Pain, Vision loss, Dipolpia - Ears, Nose & Throat Ears, Nose & Throat: denies: Ear pain, Sore throat - Cardiovascular Cariovascular: reports: Lightheadedness. denies: Irregular heart rate, Palpitations, Chest pain, Edema, Syncope - Respiratory Respiratory: denies: Cough, Sputum production, Wheezing, SOB at rest, SOB with exertion - Gastrointestinal Gastrointestinal: denies: Abdominal pain, Abdominal distention, Constipation, Diarrhea, Nausea, Vomiting, Coffee grounds emesis, Reflux/heartburn - Genitourinary Genitourinary: denies: Dysuria, Frequency, Urgency, Hematuria - Musculoskeletal Musculoskeletal: denies: Muscle pain, Back pain, Muscle aches - Integumentary Integumentary: denies: Rash, Pruritis, Lesions - Neurological Neurological: reports: Other (Tremulous). denies: Focal weakness, Headache - Psychiatric Psychiatric: denies: Depression, Anxiety - Endocrine Endocrine: denies: Polyuria, Polydypsia - Hematologic/Lymphatic Hematologic/Lymphatic: reports: Bruising. denies: Anemia, Petechiae Prior Level of Functionality: Patient is normally independent of activities of daily living. Exam - Vital Signs Vital Signs: Vital Signs x48h Temp Pulse Resp BP Pulse Ox 09/23/21 12:14 87 23 03/08/22 12:09 103 H 18 163/78 H 97 09/23/21 11:06 36.1 C L 110 H 20 166/83 H 94 - Physical Exam General Appearance: positive: No acute distress, Alert Eyes Bilateral: positive: PERRL, EOMI ENT: positive: Dry mucous membranes Neck: positive: No JVD, Trachea midline Respiratory: positive: Chest non-tender, No respiratory distress, Breath sounds nml. negative: Wheezes, Rales, Rhonchi Cardiovascular: positive: No murmur, Tachycardia Abdomen: positive: Non-tender, No organomegaly, Nml bowel sounds, No distention. negative: Guarding, Rebound Back: positive: Nml inspection Skin: positive: Color nml, No rash, Warm, Laceration (cm) (on left small toe), Other (extensive bruising in upper extremities). negative: Skin rash Extremities: positive: Non-tender, Full ROM, Nml appearance, No pedal edema Neurologic/Psychiatric: positive: Oriented x3, Mood/affect nml, Other (tremulous) Conclusion/Plan - Problem List (1) Hyponatremia Conclusion/Plan: Acute on chronic. This is secondary to hypovolemia and alcohol abuse (Beer potomania) Patient's sodium level is typically in the 120s. Today sodium is 108. Patient started on normal saline at 250 mL/h. Will check BMP every 4 hours. (2) Alcoholism Conclusion/Plan: Blood alcohol level was 110 CIWA protocol initiated. Librium 25 mg p.o. every 8 hours ordered. Vitamin B1, multivitamin ordered (3) Fall Conclusion/Plan: Likely mechanical fall related to alcohol intoxication. Will monitor patient. Qualifiers: Encounter type: initial encounter Qualified Code(s): W19.XXXA - Unspecified fall, initial encounter (4) Hyperlipidemia Conclusion/Plan: On simvastatin. (5) Bipolar disorder Conclusion/Plan: On olanzapine 20mg po qpm Qualifiers: Active/Remission status: remission status unspecified Qualified Code(s): F31.9 - Bipolar disorder, unspecified (6) Hypertension Conclusion/Plan: On amlodipine 10 mg p.o. daily. We will hold Lasix and spironolactone while actively hydrating patient. (7) Leukocytosis Conclusion/Plan: Reactive vs Infectious. WBC 19.7 Will monitor and obtain blood cultures if patient becomes febrile - Lab Results Fish Bones: 09/23/21 11:45 09/23/21 11:45 Core Measures - Anticipated LOS I expect patient to be DC'd or transferred within 96 hours.: Yes - DVT/VTE - Prophylaxis VTE/DVT Device ordered at admit?: Yes
[2021-09-23] MEDS ORDERED: LORazepam 2 MG/ML VIAL IVP PRN (14:06)
--- NOTE | 2021-09-23 15:41 | PHARMACY PROGRESS NOTE ---
- Best Possible Medication History Admit Date and Time: 09/23/21 1310 Processed by: Nursing Medication History completed: Yes As the person ultimately responsible for medication therapy, providers are able to order a medication from an existing home medication list in [facility] via the "Reconcile Routine" prior to Confirmation of that medication by business support. Such practice is discouraged except when the physician, in their clinical judgment, deems that a medical need exists for a medication without regard to previous use.
[2021-09-23] MEDS: chlordiazePOXIDE 25 MG CAPSULE PO SCH ×2 (15:44→22:30)
[2021-09-23] MEDS: PANTOPRAZOLE 40 MG TABLET PO SCH (15:53)
[2021-09-23] MEDS ORDERED: SODIUM CHLORIDE 0.9% 1,000 ML IV SCH (16:00)
[2021-09-23] MEDS: SODIUM CHLORIDE FLUSH 0.9% 10 ML SYRINGE IVP SCH ×2 (16:14→23:29)
[2021-09-23] MEDS: LORazepam 2 MG/ML VIAL IVP PRN (16:24)
[2021-09-23] MEDS: IPRATROPIUM/ALBUTEROL 3 ML NEB INH PRN ×2 (17:11→19:12)
--- NOTE | 2021-09-23 17:25 | CT Report ---
PROCEDURE: HEAD WO INDICATIONS: s/p fall, dizziness TECHNIQUE: Noncontrast 4.5 mm thick angled axial sections acquired from the foramen magnum to the vertex. For r adiation dose reduction, the following was used: automated exposure control, adjustment of mA and/or kV according to patient size. COMPARISON: None. FINDINGS: Image quality: Study degraded by significant patient motion artifact. CSF spaces: Basal cisterns are patent. No extra-axial fluid collections. Ventricles are normal in size and shape. Brain: No midline shift. No intracranial masses or hemorrhage. Capellan-white matter interface is norm al. Skull and face: Calvarium and visualized facial bones are intact, without suspicious lesions. Sinuses: There is layering fluid in the bilateral maxillary and sphenoid sinuses. Otherwise, paranas al sinuses and mastoids are clear. IMPRESSION: Study degraded by moderate patient motion artifact. Within these limitations, no acute i ntracranial abnormalities or acute calvarial fractures. Reviewed by: Fabrizio Thompson MD on 09/23/2021 5:23 PM PST Approved by: Fabrizio Thompson MD on 09/23/2021 5:23 PM PST Station ID: [id number]
[2021-09-23 17:30] LABS: BILIRUBIN,URINE NEGATIVE (NEGATIVE); GLUCOSE, URINE (UA) 100 mg/dL (NEGATIVE); KETONES,URINE (UA) 15 mg/dL (NEGATIVE); LEUKOCYTE ESTERASE, URINE NEGATIVE (NEGATIVE); NITRITE,URINE NEGATIVE (NEGATIVE); OCCULT BLOOD,URINE MODERATE (NEGATIVE); PROTEIN,URINE TRACE mg/dL (NEGATIVE); UROBILINOGEN,URINE 4 E.U./dL (NORMAL)
[2021-09-23 17:32] LABS: CLARITY,URINE HAZY (CLEAR)
[2021-09-23 17:39] LABS: CALCIUM 7.8 mg/dL (8.5-10.3); CREATININE 0.6 mg/dL (0.4-1.0); POTASSIUM 2.9 mmol/L (3.5-5.0)
[2021-09-23 17:44] LABS: BACTERIA,URINE Rare /HPF (None Seen); RBC,URINE 0-5 /HPF (0-5); SQUAMOUS EPITHELIAL CELL,UR RARE Squamous (<= Few); WBC,URINE 0-3 /HPF (0-5)
[2021-09-23] MEDS: POTASSIUM CHLOR 10 MEQ/100 ML 10 MEQ/100 ML BAG IV SCH ×5 (18:09→23:28)
[2021-09-23] MEDS ORDERED: POTASSIUM CHLORIDE 20 MEQ TABLET PO ONE (18:48)
[2021-09-23] MEDS ORDERED: FUROSEMIDE 20 MG/2 ML VIAL IVP STA (18:49)
[2021-09-23] MEDS ORDERED: SODIUM CHLORIDE 3% HYPERTONIC 500 ML IV ONE (19:00)
--- NOTE | 2021-09-23 21:18 | ANESTHESIA PROCEDURE NOTE ---
Anesth Central Line Template - Central Line Central Line Preparation: Consent Obtained Central line location: Right IJ Central line type: Triple lumen Central line catheter tip site resides: Atrium, right Central line aftercare: Chlorhexidine disc placed, Secured, Placement confirmed, No pneumothorax, No complications, Bundle checklist complete, Pt tolerated well
--- NOTE | 2021-09-23 21:21 | CONSULTATION NOTE ---
Consultation Report: consulted by Hospitalist for CVL placement. Informed consent obtained at the bedside and witnessed by CLOSER ON. Pt prepped and draped in sterile fashion. R IJ CVL 3-lumen catheter placed under U/S guidance. Placement confirmed with portable CXR. Pt tolerated well, VSS, NAC.
--- NOTE | 2021-09-23 21:32 | XRAY Report ---
PROCEDURE: Chest for Line Placement INDICATIONS: Central Line Placement TECHNIQUE: One view of the chest was acquired. COMPARISON: Chest radiograph from earlier same day FINDINGS: Surgical changes and devices: Interval placement of right jugular central venous catheter with distal tip projecting over the lower SVC. Lungs and pleura: No pleural effusions or pneumothorax. Diffuse interstitial prominence without foca l consolidation. Findings appear less conspicuous compared to the prior study. Mediastinum: Mediastinal contours appear normal. Heart size is normal. Bones and chest wall: No suspicious bony lesions. Overlying soft tissues appear unremarkable. IMPRESSION: Interval placement of right jugular central venous catheter with the distal tip projecting over the l ower SVC. No pneumothorax. Reviewed by: Fabrizio Thompson MD on 09/23/2021 9:31 PM PST Approved by: Fabrizio Thompson MD on 09/23/2021 9:31 PM PST Station ID: [id number]
[2021-09-23 22:11] LABS: CALCIUM 7.5 mg/dL (8.5-10.3); CREATININE 0.6 mg/dL (0.4-1.0); POTASSIUM 3.4 mmol/L (3.5-5.0)
[2021-09-23] MEDS: OLANZapine ODT 5 MG TABLET TL SCH (23:29)
[2021-09-23] MEDS: busPIRone 5 MG TABLET PO SCH (23:29)
[2021-09-24] MEDS: POTASSIUM CHLOR 10 MEQ/100 ML 10 MEQ/100 ML BAG IV SCH (00:35)
[2021-09-24] MEDS: LORazepam 2 MG/ML VIAL IVP PRN ×3 (00:58→21:44)
[2021-09-24] MEDS: SODIUM CHLORIDE FLUSH 0.9% 10 ML SYRINGE IVP PRN ×5 (00:58→13:00)
[2021-09-24] MEDS: IPRATROPIUM/ALBUTEROL 3 ML NEB INH PRN ×3 (01:05→21:11)
[2021-09-24 02:05] LABS: CALCIUM 7.5 mg/dL (8.5-10.3); CREATININE 0.7 mg/dL (0.4-1.0); POTASSIUM 4.3 mmol/L (3.5-5.0)
[2021-09-24 05:29] LABS: BASOPHILS % (AUTO) 0.4 %; EOSINOPHILS # (AUTO) 0.1 10^3/uL (0.0-0.7); EOSINOPHILS % (AUTO) 1.1 %; HCT - HEMATOCRIT 30.3 % (37.0-47.0); HGB - HEMOGLOBIN 11.9 g/dL (12.0-16.0); LYMPHOCYTES # (AUTO) 0.4 10^3/uL (1.5-3.5); LYMPHOCYTES % (AUTO) 4.5 %; MEAN PLATELET VOLUME 9.1 fL (7.9-10.8); MONOCYTES # (AUTO) 0.8 10^3/uL (0.0-1.0); MONOCYTES % (AUTO) 9.5 %; PLT - PLATELET COUNT 137 10^3/uL (130-450); RED BLOOD COUNT 3.78 10^6/uL (4.20-5.40); RED CELL DISTRIBUTION WIDTH 13.6 % (12.0-15.0); WHITE BLOOD COUNT 8.4 x10^3/uL (4.8-10.8)
[2021-09-24 05:31] LABS: CALCIUM, IONIZED 0.96 mmol/L (1.15-1.33); VBG PH 7.449 (7.31-7.41)
[2021-09-24 05:34] LABS: ALBUMIN 3.3 g/dL (3.2-5.5); ALBUMIN/GLOBULIN RATIO 1.3 (1.0-2.2); BILIRUBIN,TOTAL 1.7 mg/dL (0.2-1.0); CALCIUM 7.6 mg/dL (8.5-10.3); CREATININE 0.7 mg/dL (0.4-1.0); MAGNESIUM 1.8 mg/dL (1.7-2.8); POTASSIUM 4.1 mmol/L (3.5-5.0); TOTAL PROTEIN 5.8 g/dL (6.7-8.2)
[2021-09-24] MEDS ORDERED: MAGNESIUM OXIDE 400 MG TABLET PO ONE (06:00)
[2021-09-24 06:42] LABS: MEAN CORPUSCULAR HEMOGLOBIN 30.1 pg (27.0-31.0); MEAN CORPUSCULAR HGB CONC 38.6 g/dL (32.0-36.0); MEAN CORPUSCULAR VOLUME 78.1 fL (81.0-99.0)
[2021-09-24] MEDS ORDERED: CALCIUM CHLORIDE 2,000 MG in SODIUM CHLORIDE 0.9% 100ML 100 ML IV ONE (08:00)
--- NOTE | 2021-09-24 08:49 | PROVIDER PROGRESS NOTE ---
Assessment/Plan - Problem List (1) Hypo-osmolality and hyponatremia Assessment/Plan: Acute on chronic. This is secondary to hypovolemia and alcohol abuse. The patient typically has hyponatremia with sodium levels in the 120s. Upon admission her sodium was 108 and serum osmolaity was 228. Today sodium is 111 and her serum osmolality is 235. Patient was started on 3% normal saline at 15 mL/h on 09/24/21 at 1900. Plan: Continue to monitor sodium every 4 hours and adjust 3% normal saline as needed with a goal to increase sodium no faster than 6-8 over 24 hours. (2) Alcoholism Assessment/Plan: Patient has a history of alcohol abuse and on admission reported that she drinks 3 beers daily. Her admission blood alcohol level was 110. She was started on CIWA protocol and has ranged 3-15. She is receiving Librium 25mg PO every 8 hours. She is lethargic today but arousable and able to to answer simple questions. Plan: Continue with CIWA protocol with as needed Ativan. Decrease Librium 25 mg p.o. to twice daily due to lethargy. Continue with vitamin B1 and multivitamin daily. (3) Fall Qualifiers: Encounter type: initial encounter Qualified Code(s): W19.XXXA - Unspecified fall, initial encounter Assessment/Plan: Patient has a history of alcohol abuse and reports becoming dizzy after drinking and fell. This is most likely a mechanical fall related to alcohol intoxication. She has ecchymosis to bilateral arms and to the inferior lateral aspect of the left orbit. CT of head showed "No acute intracranial abnormalities or acute calvarial fracture. Study was degraded by moderate patient motion artifact". Patient is lethargic today and is on librium three times daily. Plan: We will continue to monitor the patient. Decrease Librium to twice daily. (4) Bipolar 1 disorder Assessment/Plan: Patient has a history of bipolar and at home she is on olanzapine 20mg po nightly. Plan: Continue home medication Olanzapine 20mg PO nightly when more awake. (5) Hypertension Assessment/Plan: Patient has a history of hypertension and takes amlodipine 10 mg PO daily, spironolactone 100mg PO daily, and Lasix 40mg PO daily. Her systolic blood pressure is ranging 120-160s with diastolic 60-90s. Plan: We will hold Lasix and spironolactone while actively hydrating patient. Will continue amlodipine 10mg PO daily. (6) Leukocytosis Assessment/Plan: Upon admission patient afebrile with elevated WBCs at 19.7. Today her WBC normalized to 8.6 and her temperature remains afebrile at 37.0 This inital elevation in WBCs was most likely reactive vs Infectious. Plan: Will continue to monitor and obtain blood cultures if patient becomes febrile. (7) Hyperlipidemia Assessment/Plan: Patient has a history of Hyperlipidemia that has been document on several hospital admissions. She does not a lipid panel on record or a record of taking medications for her hyperlipidemia. Plan: Will order a lipid panel for tomorrow 09/25 and add lipid lowering medication as needed. - Current Meds Current Meds: Current Medications Generic Name Dose Route Start Last Admin Trade Name Freq PRN Reason Stop Dose Admin Albuterol/Ipratropium 3 ml 09/23/21 16:36 09/24/21 01:05 Ipratropium/Albuterol 3 Ml Neb INH 3 ml Q4HR PRN Administration Wheezing Buspirone HCl 10 mg 09/23/21 23:00 09/23/21 23:29 Buspirone 5 Mg Tablet PO 10 mg BID YENNY Administration Chlordiazepoxide HCl 25 mg 09/23/21 15:00 09/23/21 22:30 Chlordiazepoxide 25 Mg Capsule PO 25 mg Q8HR YENNY Administration Sodium Chloride 500 mls @ 15 mls/hr 09/23/21 19:00 09/24/21 08:00 Sodium Chloride 3% Hypertonic IV 09/25/21 04:19 15 mls/hr .[id number] ONE Infusion Calcium Chloride 2,000 mg/ 120 mls @ 120 mls/hr 09/24/21 08:00 09/24/21 08:35 Sodium Chloride IV 09/24/21 08:59 120 mls/hr ONCE ONE Administration Protocol Lorazepam 1 mg 09/23/21 14:44 09/24/21 03:46 Lorazepam 2 Mg/Ml Vial IVP 1 mg Q30M PRN Administration CIWA >8 Protocol Olanzapine 20 mg 09/23/21 22:51 09/23/21 23:29 Olanzapine Odt 5 Mg Tablet TL 20 mg QPM YENNY Administration Pantoprazole Sodium 40 mg 09/23/21 16:00 09/23/21 15:53 Pantoprazole 40 Mg Tablet PO 40 mg BIDAC YENNY Administration Sodium Chloride 10 ml 09/23/21 17:00 09/23/21 23:29 Sodium Chloride Flush 0.9% 10 Ml Syringe IVP 10 ml 0100,0900,1700 YENNY Administration Sodium Chloride 10 ml 09/23/21 13:10 09/24/21 05:24 Sodium Chloride Flush 0.9% 10 Ml Syringe IVP 60 ml PRN PRN Administration NEEDED PER PROVIDER ORDERS - Lab Result Fish Bone Diagrams: 09/26/21 04:45 09/26/21 04:45 - Diagnostic Imaging Results Diagnostic Imaging Results: Final report reviewed - Additional Planning Condition/Complexity: Guarded Subjective - Subjective Patient Reports: Other (Patient is lethargic and after much prompting reports being unable to sleep due to being "uncomfortable".) Nursing Reports: Other (Patient is lethargic and was difficult to arouse to do initial assessment. Oral medications are being held until she is more alert.) Objective Vital Signs: Vital Signs - 24 hr 09/23/21 09/23/21 09/23/21 11:06 12:09 12:14 Temperature 36.1 C L Heart Rate 110 H 103 H 87 Heart Rate [ Monitoring electrodes] Respiratory 20 18 23 Rate Blood Pressure 166/83 H 163/78 H Blood Pressure [Left Brachial artery] O2 Saturation 94 97 09/23/21 09/23/21 09/23/21 13:42 14:30 14:45 Temperature 36.5 C Heart Rate 105 H Heart Rate [ Monitoring electrodes] Respiratory 14 Rate Blood Pressure 144/81 H 153/94 H 173/81 H Blood Pressure [Left Brachial artery] O2 Saturation 95 09/23/21 09/23/21 09/23/21 15:03 15:05 15:10 Temperature Heart Rate 119 H 124 H 117 H Heart Rate [ Monitoring electrodes] Respiratory 20 18 30 H Rate Blood Pressure Blood Pressure [Left Brachial artery] O2 Saturation 09/23/21 09/23/21 09/23/21 15:15 15:20 15:25 Temperature Heart Rate 115 H 114 H 111 H Heart Rate [ Monitoring electrodes] Respiratory 19 32 H 24 Rate Blood Pressure Blood Pressure [Left Brachial artery] O2 Saturation 09/23/21 09/23/21 09/23/21 15:30 15:35 15:40 Temperature Heart Rate 114 H 110 H 106 H Heart Rate [ Monitoring electrodes] Respiratory 23 26 H 28 H Rate Blood Pressure Blood Pressure [Left Brachial artery] O2 Saturation 09/23/21 09/23/21 09/23/21 15:45 15:50 15:55 Temperature Heart Rate 105 H 106 H 106 H Heart Rate [ Monitoring electrodes] Respiratory 20 27 H 28 H Rate Blood Pressure Blood Pressure [Left Brachial artery] O2 Saturation 09/23/21 09/23/21 09/23/21 16:00 16:05 16:10 Temperature Heart Rate 104 H 105 H 108 H Heart Rate [ Monitoring electrodes] Respiratory 25 H 20 22 Rate Blood Pressure Blood Pressure [Left Brachial artery] O2 Saturation 09/23/21 09/23/21 09/23/21 16:15 16:20 16:25 Temperature Heart Rate 106 H 107 H 102 H Heart Rate [ Monitoring electrodes] Respiratory 30 H 30 H 18 Rate Blood Pressure Blood Pressure [Left Brachial artery] O2 Saturation 09/23/21 09/23/21 09/23/21 16:30 16:35 16:40 Temperature Heart Rate 108 H 104 H 102 H Heart Rate [ Monitoring electrodes] Respiratory 20 19 18 Rate Blood Pressure Blood Pressure [Left Brachial artery] O2 Saturation 09/23/21 09/23/21 09/23/21 16:53 16:55 17:00 Temperature Heart Rate 106 H 110 H 106 H Heart Rate [ Monitoring electrodes] Respiratory 16 18 15 Rate Blood Pressure Blood Pressure [Left Brachial artery] O2 Saturation 09/23/21 09/23/21 09/23/21 17:05 17:10 17:15 Temperature Heart Rate 103 H 102 H 105 H Heart Rate [ Monitoring electrodes] Respiratory 17 18 18 Rate Blood Pressure Blood Pressure [Left Brachial artery] O2 Saturation 09/23/21 09/23/21 09/23/21 17:16 17:20 17:25 Temperature Heart Rate 103 H 106 H 106 H Heart Rate [ Monitoring electrodes] Respiratory 18 17 15 Rate Blood Pressure Blood Pressure [Left Brachial artery] O2 Saturation 09/23/21 09/23/21 09/23/21 17:30 17:35 17:40 Temperature Heart Rate 106 H 101 H 114 H Heart Rate [ Monitoring electrodes] Respiratory 17 19 21 Rate Blood Pressure Blood Pressure [Left Brachial artery] O2 Saturation 09/23/21 09/23/21 09/23/21 17:45 17:50 18:10 Temperature Heart Rate 115 H 115 H 113 H Heart Rate [ Monitoring electrodes] Respiratory 20 23 19 Rate Blood Pressure Blood Pressure [Left Brachial artery] O2 Saturation 09/23/21 09/23/21 09/23/21 18:15 18:20 18:25 Temperature Heart Rate 110 H 112 H 112 H Heart Rate [ Monitoring electrodes] Respiratory 22 20 17 Rate Blood Pressure Blood Pressure [Left Brachial artery] O2 Saturation 09/23/21 09/23/21 09/23/21 18:30 18:35 18:40 Temperature Heart Rate 114 H 113 H 113 H Heart Rate [ Monitoring electrodes] Respiratory 18 24 25 H Rate Blood Pressure Blood Pressure [Left Brachial artery] O2 Saturation 09/23/21 09/23/21 09/23/21 18:45 18:50 18:55 Temperature Heart Rate 118 H 112 H 111 H Heart Rate [ Monitoring electrodes] Respiratory 23 17 23 Rate Blood Pressure Blood Pressure [Left Brachial artery] O2 Saturation 09/23/21 09/23/21 09/23/21 18:59 19:00 19:01 Temperature Heart Rate 112 H 114 H 111 H Heart Rate [ Monitoring electrodes] Respiratory 27 H 24 24 Rate Blood Pressure 127/77 Blood Pressure [Left Brachial artery] O2 Saturation 09/23/21 09/23/21 09/23/21 19:05 19:10 19:12 Temperature Heart Rate 111 H 112 H 118 H Heart Rate [ Monitoring electrodes] Respiratory 20 20 20 Rate Blood Pressure Blood Pressure [Left Brachial artery] O2 Saturation 09/23/21 09/23/21 09/23/21 19:15 19:20 19:25 Temperature Heart Rate 109 H 109 H 108 H Heart Rate [ Monitoring electrodes] Respiratory 19 20 19 Rate Blood Pressure Blood Pressure [Left Brachial artery] O2 Saturation 09/23/21 09/23/21 09/23/21 19:30 19:35 19:40 Temperature Heart Rate 110 H 104 H 105 H Heart Rate [ Monitoring electrodes] Respiratory 24 18 19 Rate Blood Pressure Blood Pressure [Left Brachial artery] O2 Saturation 09/23/21 09/23/21 09/23/21 19:45 19:50 19:55 Temperature Heart Rate 105 H 105 H 103 H Heart Rate [ Monitoring electrodes] Respiratory 19 19 22 Rate Blood Pressure Blood Pressure [Left Brachial artery] O2 Saturation 09/23/21 09/23/21 09/23/21 19:59 20:00 20:01 Temperature 36.5 C Heart Rate 105 H 105 H 106 H Heart Rate [ 105 H Monitoring electrodes] Respiratory 20 20 21 Rate Blood Pressure 130/67 Blood Pressure 130/67 [Left Brachial artery] O2 Saturation 97 09/23/21 09/23/21 09/23/21 20:05 20:10 20:15 Temperature Heart Rate 107 H 107 H 108 H Heart Rate [ Monitoring electrodes] Respiratory 21 23 19 Rate Blood Pressure Blood Pressure [Left Brachial artery] O2 Saturation 09/23/21 09/23/21 09/23/21 20:20 20:25 20:30 Temperature Heart Rate 118 H 107 H 101 H Heart Rate [ Monitoring electrodes] Respiratory 21 18 27 H Rate Blood Pressure Blood Pressure [Left Brachial artery] O2 Saturation 09/23/21 09/23/21 09/23/21 20:35 20:40 20:45 Temperature Heart Rate 103 H 105 H 110 H Heart Rate [ Monitoring electrodes] Respiratory 16 22 19 Rate Blood Pressure Blood Pressure [Left Brachial artery] O2 Saturation 09/23/21 09/23/21 09/23/21 20:50 20:55 20:59 Temperature Heart Rate 111 H 106 H 107 H Heart Rate [ Monitoring electrodes] Respiratory 22 22 24 Rate Blood Pressure Blood Pressure [Left Brachial artery] O2 Saturation 09/23/21 09/23/21 09/23/21 21:00 21:01 21:05 Temperature Heart Rate 106 H 104 H 102 H Heart Rate [ 106 H Monitoring electrodes] Respiratory 19 17 20 Rate Blood Pressure 142/62 H Blood Pressure 142/62 H [Left Brachial artery] O2 Saturation 98 09/23/21 09/23/21 09/23/21 21:10 21:15 21:20 Temperature Heart Rate 103 H 105 H 105 H Heart Rate [ Monitoring electrodes] Respiratory 26 H 23 16 Rate Blood Pressure Blood Pressure [Left Brachial artery] O2 Saturation 09/23/21 09/23/21 09/23/21 21:25 21:30 21:35 Temperature Heart Rate 103 H 104 H 103 H Heart Rate [ Monitoring electrodes] Respiratory 22 17 18 Rate Blood Pressure Blood Pressure [Left Brachial artery] O2 Saturation 09/23/21 09/23/21 09/23/21 21:40 21:45 21:49 Temperature Heart Rate 103 H 103 H 102 H Heart Rate [ Monitoring electrodes] Respiratory 18 18 16 Rate Blood Pressure Blood Pressure [Left Brachial artery] O2 Saturation 09/23/21 09/23/2122 21:50 21:55 22:00 Temperature Heart Rate 104 H 104 H 110 H Heart Rate [ 105 H Monitoring electrodes] Respiratory 18 16 17 Rate Blood Pressure Blood Pressure 152/79 H [Left Brachial artery] O2 Saturation 97 09/23/21 09/23/21 09/23/21 22:01 22:05 22:10 Temperature Heart Rate 109 H 114 H 126 H Heart Rate [ Monitoring electrodes] Respiratory 18 35 H 22 Rate Blood Pressure 152/79 H Blood Pressure [Left Brachial artery] O2 Saturation 09/23/21 09/23/21 09/23/21 22:15 22:20 22:25 Temperature Heart Rate 134 H 118 H 118 H Heart Rate [ Monitoring electrodes] Respiratory 21 19 22 Rate Blood Pressure Blood Pressure [Left Brachial artery] O2 Saturation 09/23/21 09/23/21 09/23/21 22:30 22:35 22:40 Temperature Heart Rate 115 H 114 H 114 H Heart Rate [ Monitoring electrodes] Respiratory 21 28 H 27 H Rate Blood Pressure Blood Pressure [Left Brachial artery] O2 Saturation 09/23/21 09/23/21 09/23/21 22:45 22:50 22:55 Temperature Heart Rate 112 H 111 H 109 H Heart Rate [ Monitoring electrodes] Respiratory 21 23 23 Rate Blood Pressure Blood Pressure [Left Brachial artery] O2 Saturation 09/23/21 09/23/21 09/23/21 22:59 23:00 23:01 Temperature Heart Rate 112 H 111 H 111 H Heart Rate [ 113 H Monitoring electrodes] Respiratory 24 20 22 Rate Blood Pressure 168/80 H Blood Pressure 168/80 H [Left Brachial artery] O2 Saturation 99 09/23/21 09/23/21 09/23/21 23:05 23:10 23:15 Temperature Heart Rate 111 H 112 H 113 H Heart Rate [ Monitoring electrodes] Respiratory 19 29 H 28 H Rate Blood Pressure Blood Pressure [Left Brachial artery] O2 Saturation 09/23/21 09/23/21 09/23/21 23:20 23:25 23:30 Temperature Heart Rate 116 H 113 H 113 H Heart Rate [ Monitoring electrodes] Respiratory 26 H 28 H 18 Rate Blood Pressure Blood Pressure [Left Brachial artery] O2 Saturation 09/23/21 09/23/21 09/23/21 23:35 23:40 23:45 Temperature Heart Rate 114 H 113 H 115 H Heart Rate [ Monitoring electrodes] Respiratory 22 20 32 H Rate Blood Pressure Blood Pressure [Left Brachial artery] O2 Saturation 09/23/21 09/23/21 09/24/21 23:50 23:55 00:00 Temperature Heart Rate 117 H 116 H 118 H Heart Rate [ 117 H Monitoring electrodes] Respiratory 21 22 22 Rate Blood Pressure Blood Pressure 152/80 H [Left Brachial artery] O2 Saturation 96 09/24/21 09/24/21 09/24/21 00:01 00:05 00:10 Temperature Heart Rate 115 H 118 H 115 H Heart Rate [ Monitoring electrodes] Respiratory 24 24 25 H Rate Blood Pressure 152/80 H Blood Pressure [Left Brachial artery] O2 Saturation 09/24/21 09/24/21 09/24/21 00:15 00:20 00:25 Temperature Heart Rate 118 H 118 H 116 H Heart Rate [ Monitoring electrodes] Respiratory 22 25 H 23 Rate Blood Pressure Blood Pressure [Left Brachial artery] O2 Saturation 09/24/21 09/24/21 09/24/21 00:30 00:35 00:40 Temperature Heart Rate 113 H 115 H 117 H Heart Rate [ Monitoring electrodes] Respiratory 22 20 16 Rate Blood Pressure Blood Pressure [Left Brachial artery] O2 Saturation 09/24/21 09/24/21 09/24/21 00:45 00:50 00:55 Temperature Heart Rate 123 H 129 H 119 H Heart Rate [ Monitoring electrodes] Respiratory 22 23 23 Rate Blood Pressure Blood Pressure [Left Brachial artery] O2 Saturation 09/24/21 09/24/21 09/24/21 01:00 01:01 01:05 Temperature Heart Rate 117 H 117 H 112 H Heart Rate [ 117 H Monitoring electrodes] Respiratory 20 23 18 Rate Blood Pressure 120/57 L Blood Pressure 120/57 L [Left Brachial artery] O2 Saturation 97 09/24/21 09/24/21 09/24/21 01:30 01:35 01:40 Temperature Heart Rate 105 H 107 H 105 H Heart Rate [ Monitoring electrodes] Respiratory 17 24 19 Rate Blood Pressure Blood Pressure [Left Brachial artery] O2 Saturation 09/24/21 09/24/21 09/24/21 01:45 01:50 01:55 Temperature Heart Rate 104 H 104 H 106 H Heart Rate [ Monitoring electrodes] Respiratory 19 20 19 Rate Blood Pressure Blood Pressure [Left Brachial artery] O2 Saturation 09/24/21 09/24/21 09/24/21 02:00 02:01 02:05 Temperature Heart Rate 109 H 106 H 110 H Heart Rate [ 108 H Monitoring electrodes] Respiratory 22 22 19 Rate Blood Pressure 150/62 H Blood Pressure 150/62 H [Left Brachial artery] O2 Saturation 96 09/24/21 09/24/21 09/24/21 02:10 02:15 02:20 Temperature Heart Rate 108 H 106 H 105 H Heart Rate [ Monitoring electrodes] Respiratory 19 19 20 Rate Blood Pressure Blood Pressure [Left Brachial artery] O2 Saturation 09/24/21 09/24/21 09/24/21 02:25 02:30 02:35 Temperature Heart Rate 106 H 107 H 109 H Heart Rate [ Monitoring electrodes] Respiratory 19 21 19 Rate Blood Pressure Blood Pressure [Left Brachial artery] O2 Saturation 09/24/21 09/24/21 09/24/21 02:40 02:45 02:50 Temperature Heart Rate 109 H 108 H 115 H Heart Rate [ Monitoring electrodes] Respiratory 21 22 23 Rate Blood Pressure Blood Pressure [Left Brachial artery] O2 Saturation 09/24/21 09/24/21 09/24/21 02:55 03:00 03:01 Temperature Heart Rate 116 H 118 H 119 H Heart Rate [ 119 H Monitoring electrodes] Respiratory 16 20 23 Rate Blood Pressure 91/72 Blood Pressure 91/72 [Left Brachial artery] O2 Saturation 97 09/24/21 09/24/21 09/24/21 03:05 03:10 03:15 Temperature Heart Rate 123 H 124 H 122 H Heart Rate [ Monitoring electrodes] Respiratory 14 22 Rate Blood Pressure Blood Pressure [Left Brachial artery] O2 Saturation 09/24/21 09/24/21 09/24/21 03:20 03:25 03:30 Temperature Heart Rate 129 H 131 H 132 H Heart Rate [ Monitoring electrodes] Respiratory 23 25 H 17 Rate Blood Pressure Blood Pressure [Left Brachial artery] O2 Saturation 09/24/21 09/24/21 09/24/21 03:35 03:40 03:45 Temperature Heart Rate 130 H 130 H 124 H Heart Rate [ Monitoring electrodes] Respiratory 29 H 17 22 Rate Blood Pressure Blood Pressure [Left Brachial artery] O2 Saturation 09/24/21 09/24/21 09/24/21 03:50 03:55 03:59 Temperature Heart Rate 115 H 113 H 116 H Heart Rate [ Monitoring electrodes] Respiratory 21 21 24 Rate Blood Pressure Blood Pressure [Left Brachial artery] O2 Saturation 09/24/21 09/24/21 09/24/21 04:00 04:01 04:05 Temperature 37.0 C Heart Rate 114 H 113 H 111 H Heart Rate [ 114 H Monitoring electrodes] Respiratory 21 19 19 Rate Blood Pressure 127/67 Blood Pressure 127/67 [Left Brachial artery] O2 Saturation 96 09/24/21 09/24/21 09/24/21 04:10 04:15 04:20 Temperature Heart Rate 111 H 109 H 108 H Heart Rate [ Monitoring electrodes] Respiratory 19 21 18 Rate Blood Pressure Blood Pressure [Left Brachial artery] O2 Saturation 09/24/21 09/24/21 09/24/21 04:25 04:30 04:35 Temperature Heart Rate 109 H 106 H 108 H Heart Rate [ Monitoring electrodes] Respiratory 19 19 18 Rate Blood Pressure Blood Pressure [Left Brachial artery] O2 Saturation 09/24/21 09/24/21 09/24/21 04:40 04:45 04:50 Temperature Heart Rate 107 H 104 H 105 H Heart Rate [ Monitoring electrodes] Respiratory 19 18 20 Rate Blood Pressure Blood Pressure [Left Brachial artery] O2 Saturation 09/24/21 09/24/21 09/24/21 04:55 05:00 05:02 Temperature Heart Rate 105 H 106 H 110 H Heart Rate [ 107 H Monitoring electrodes] Respiratory 20 25 H 27 H Rate Blood Pressure Blood Pressure 145/52 H [Left Brachial artery] O2 Saturation 98 09/24/21 09/24/21 09/24/21 05:03 05:05 06:00 Temperature Heart Rate 107 H 107 H Heart Rate [ 108 H Monitoring electrodes] Respiratory 21 23 26 H Rate Blood Pressure 145/52 H Blood Pressure 151/92 H [Left Brachial artery] O2 Saturation 96 09/24/21 09/24/21 07:00 08:00 Temperature Heart Rate Heart Rate [ 104 H 107 H Monitoring electrodes] Respiratory 22 21 Rate Blood Pressure Blood Pressure 146/69 H 161/67 H [Left Brachial artery] O2 Saturation 98 97 Oxygen O2 Source Room air I&O (Last 24 Hrs): Intake and Output Totals x24h 09/22/21 09/23/21 09/24/21 23:59 23:59 23:59 Intake Total 2663.0 763 Output Total 1850 1226 Balance 813.0 -463 General: No acute distress, Other (Lethargic) HEENT: Mucous membr. moist/pink, Other (Ecchymosis to inferior lateral aspect of the left orbit.) Neuro: Other (Lethargic, responds to some questions but did not answer when asked about date, location, or situation) Cardiovascular: Regular rate, Normal S1, Normal S2, No murmurs Respiratory: Chest non-tender, No respiratory distress, Breath sounds nml Abdomen: Normal bowel sounds, Soft, No tenderness Extremities: Other (Ecchymosis to bilateral arms, clubbing of bilateral finger and toe nails) - Results Results: Laboratory Results WBC 8.4 x10^3/uL (4.8-10.8) 09/24/21 05:00 RBC 3.78 10^6/uL (4.20-5.40) L 09/24/21 05:00 Hgb 11.9 g/dL (12.0-16.0) L 09/24/21 05:00 Hct 30.3 % (37.0-47.0) L 09/24/21 05:00 MCV 78.1 fL (81.0-99.0) L 09/24/21 05:00 MCH 30.1 pg (27.0-31.0) 09/24/21 05:00 MCHC 38.6 g/dL (32.0-36.0) H 09/24/21 05:00 RDW 13.6 % (12.0-15.0) 09/24/21 05:00 Plt Count 137 10^3/uL (130-450) 09/24/21 05:00 MPV 9.1 fL (7.9-10.8) 09/24/21 05:00 Neut # (Auto) 7.0 10^3/uL (1.5-6.6) H 09/24/21 05:00 Lymph # (Auto) 0.4 10^3/uL (1.5-3.5) L 09/24/21 05:00 [place] # (Auto) 0.8 10^3/uL (0.0-1.0) 09/24/21 05:00 Eos # (Auto) 0.1 10^3/uL (0.0-0.7) 09/24/21 05:00 Baso # (Auto) 0.0 10^3/uL (0.0-0.1) 09/24/21 05:00 Absolute Nucleated RBC 0.00 x10^3/uL 09/24/21 05:00 Nucleated RBC % 0.0 /100WBC 09/24/21 05:00 Manual Slide Review Indicated 09/23/21 11:45 WBC Morphology NORMAL APPEARANCE (NORMAL) 09/23/21 11:45 Platelet Estimate NORMAL (130-450,000) (NORMAL) 09/23/21 11:45 Platelet Morphology NORMAL APPEARANCE (NORMAL) 09/23/21 11:45 RBC Morph Micro Appear NORMAL APPEARANCE (NORMAL) 09/23/21 11:45 VBG pH 7.449 (7.31-7.41) H 09/24/21 05:20 Ionized Calcium 0.96 mmol/L (1.15-1.33) L 09/24/21 05:20 Sodium 111 mmol/L (135-145) L* 09/24/21 05:00 Potassium 4.1 mmol/L (3.5-5.0) 09/24/21 05:00 Chloride 80 mmol/L (101-111) L* 09/24/21 05:00 Carbon Dioxide 23 mmol/L (21-32) 09/24/21 05:00 Anion Gap 8.0 (6-13) 09/24/21 05:00 BUN 6 mg/dL (6-20) 09/24/21 05:00 Creatinine 0.7 mg/dL (0.4-1.0) 09/24/21 05:00 Estimated GFR (MDRD) 84 (>89) L 09/24/21 05:00 Glucose 189 mg/dL (70-100) H 09/24/21 05:00 Calcium 7.6 mg/dL (8.5-10.3) L 09/24/21 05:00 Phosphorus 1.1 mg/dL (2.5-4.6) L 09/24/21 05:00 Magnesium 1.8 mg/dL (1.7-2.8) 09/24/21 05:00 Total Bilirubin 1.7 mg/dL (0.2-1.0) H 09/24/21 05:00 AST 79 IU/L (10-42) H 09/24/21 05:00 ALT 35 IU/L (10-60) 09/24/21 05:00 Alkaline Phosphatase 47 IU/L (42-121) 09/24/21 05:00 Total Protein 5.8 g/dL (6.7-8.2) L 09/24/21 05:00 Albumin 3.3 g/dL (3.2-5.5) 09/24/21 05:00 Globulin 2.5 g/dL (2.1-4.2) 09/24/21 05:00 Albumin/Globulin Ratio 1.3 (1.0-2.2) 09/24/21 05:00 Lipase 44 U/L (22-51) 09/23/21 11:45 Urine Color YELLOW 09/23/21 17:08 Urine Clarity HAZY (CLEAR) 09/23/21 17:08 Urine pH 6.0 PH (5.0-7.5) 09/23/21 17:08 Ur Specific [place] 1.015 (1.002-1.030) 09/23/21 17:08 Urine Protein TRACE mg/dL (NEGATIVE) 09/23/21 17:08 Urine Glucose (UA) 100 mg/dL (NEGATIVE) H 09/23/21 17:08 Urine Ketones 15 mg/dL (NEGATIVE) H 09/23/21 17:08 Urine Occult Blood MODERATE (NEGATIVE) H 09/23/21 17:08 Urine Nitrite NEGATIVE (NEGATIVE) 09/23/21 17:08 Urine Bilirubin NEGATIVE (NEGATIVE) 09/23/21 17:08 Urine Urobilinogen 4 E.U./dL (NORMAL) H 09/23/21 17:08 Ur Leukocyte Esterase NEGATIVE (NEGATIVE) 09/23/21 17:08 Urine RBC 0-5 /HPF (0-5) 09/23/21 17:08 Urine WBC 0-3 /HPF (0-5) 09/23/21 17:08 Ur Squamous Epith Cells RARE Squamous (<= Few) 09/23/21 17:08 Urine Bacteria Rare /HPF (None Seen) 09/23/21 17:08 Ur Microscopic Review INDICATED 09/23/21 17:08 Urine Culture Comments NOT INDICATED 09/23/21 17:08 Nasal Screen MRSA (PCR) NEGATIVE (NEGATIVE) 09/23/21 21:25 Ethyl Alcohol 110.6 mg/dL 09/23/21 11:45 SARS-CoV-2 (PCR) NOT DETECTED 09/23/21 12:50 ABX Reporting Has patient been on IV antibiotics over the past 48 hours?: No
[2021-09-24] MEDS: SODIUM CHLORIDE FLUSH 0.9% 10 ML SYRINGE IVP SCH ×2 (09:00→17:00)
[2021-09-24] MEDS ORDERED: SODIUM PHOSPHATE 21 MMOL in SODIUM CHLORIDE 0.9% 250 ML IV ONE (09:30)
[2021-09-24 10:37] LABS: CALCIUM 10.6 mg/dL (8.5-10.3); CREATININE 0.6 mg/dL (0.4-1.0)
[2021-09-24] MEDS ORDERED: amLODIPine 5 MG TABLET PO SCH (12:00)
[2021-09-24] MEDS: busPIRone 5 MG TABLET PO SCH ×2 (12:45→21:11)
[2021-09-24] MEDS: chlordiazePOXIDE 25 MG CAPSULE PO SCH ×2 (12:50→21:44)
[2021-09-24] MEDS: PRENATAL VITAMIN TABLET PO SCH (12:50)
[2021-09-24] MEDS: THIAMINE 100 MG TABLET PO SCH (12:50)
[2021-09-24] MEDS: PANTOPRAZOLE 40 MG TABLET PO SCH ×2 (13:00→16:00)
[2021-09-24 13:20] LABS: CALCIUM 9.5 mg/dL (8.5-10.3); CREATININE 0.7 mg/dL (0.4-1.0); POTASSIUM 3.9 mmol/L (3.5-5.0)
[2021-09-24 17:28] LABS: CALCIUM 9.3 mg/dL (8.5-10.3); CREATININE 0.7 mg/dL (0.4-1.0); POTASSIUM 3.6 mmol/L (3.5-5.0)
[2021-09-24] MEDS ORDERED: OLANZAPINE 10 MG PO SCH (21:00)
[2021-09-24] MEDS ORDERED: OLANZapine ODT 5 MG TABLET TL SCH (21:00)
[2021-09-24] MEDS: OLANZapine ODT 5 MG TABLET TL SCH (21:11)
[2021-09-24 21:30] LABS: CALCIUM 9.2 mg/dL (8.5-10.3); CREATININE 0.8 mg/dL (0.4-1.0); POTASSIUM 3.9 mmol/L (3.5-5.0)
[2021-09-24] MEDS ORDERED: METOPROLOL 5 MG/5 ML VIAL IVP STA (23:39)
[2021-09-24] MEDS ORDERED: LEVALBUTEROL 1.25 MG/3 ML NEB INH PRN (23:47)
[2021-09-25 00:05] LABS: ABG HCO3 26.6 mmol/L (22.0-26.0); ABG PCO2 36 mmHg (34-45); ABG PH 7.48 (7.35-7.45); ABG PO2 70 mmHg (80-100)
[2021-09-25 00:06] LABS: ABG OXYGEN SATURATION 95 % (94-98); ALLEN TEST POSITIVE
--- NOTE | 2021-09-25 00:11 | PROVIDER PROGRESS NOTE ---
Package Wrapper Note - Package Wrapper Note Package Wrapper Note: At approximately 2200 the RN informed me that the patient has been tachycardic since admission and this evening her heart rate has gone from 115 and is now sustained at 130, in sinus tachycardia. About half an hour later, the heart rate was as high as 160 when she was complaining of orthopnea. She had just gotten an Albuterol treatment. An EKG was ordered. Troponin ordered. Lopressor 2.5 mg iv x1 ordered. At about 2330, the RN asked me to evaluate the patient because of her orthopnea complaint. I examined the patient: She is asleep, head of bed is elevated, respiratory rate 19, she is in no distress and is not desaturating, she is sleeping with her mouth open. She awakens to a sternal rub, returns back to sleep immediately. HEENT: her oral mucosa, tongue and lips are extremely dry, eyes are sunken. Neck has no JVD in a vertical position. Chest: breath sounds are clear anteriorly but poor air movement at bases, no wheezing or rales are heard. Heart is tachycardic and PMI is vertically displaced. The patient had a witnessed apneic episode while I was examining her with no air movement, it was from her tongue falling to the back of her airway. I performed a chin lift and her airway open, she woke up briefly and complained of chin pain. A stat chest x-ray was ordered and showed no acute pulmonary abnormality The EKG was completed and (I interpreted this), it shows sinus tachycardia, rate 126, deep inferior Q waves, poor R wave progression. No prior EKG available for comparison. Troponin came back at 22. Another troponin will be done in several hours. Impression: 1. Hypersomnolence, from Librium scheduled, and CIWA protocol due to her alcohol abuse. 2. 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 Dehydration, noted clinically and the tachycardia is likely due to dehydration. 4. Sleep apnea/obstructed airway was witnessed, possibly related to oversedation. 5. Hyponatremia improved, last serum Na 122. She is on no iv fluids at this time, equilibrating. 6. Alcohol abuse Plan: 1. Decrease Librium dose, plan a rapid taper, and continue CIWA protocol 2. Start IV hydration with D5 0.45NS and continue to follow serum sodium frequently is already being done 3. She will need stat ABG ordered and she may need BiPAP for ventilation if she is hypoxic or CO2 retaining. 4. Planning to change Albuterol to Xopenex. 5. Amlodipine stopped, changed to Cardizem CD 120 mg daily, for her HTN, with parameters for holding it. 6. 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 7. Daily orthostatic VS ordered. CRITICAL CARE TIME SPENT: 40 min
[2021-09-25] MEDS: LORazepam 2 MG/ML VIAL IVP PRN (00:18)
[2021-09-25] MEDS: SODIUM CHLORIDE FLUSH 0.9% 10 ML SYRINGE IVP SCH ×4 (00:19→21:23)
--- NOTE | 2021-09-25 00:55 | XRAY Report ---
PROCEDURE: Chest 1 View X-Ray INDICATIONS: SOB, tachycardia TECHNIQUE: One view of the chest was acquired. COMPARISON: Chest radiographs 10/05/2021 FINDINGS: Surgical changes and devices: Right internal jugular catheter again seen with tip projecting over the superior vena cava.. Lungs and pleura: No pleural effusions or pneumothorax. Mild elevation of the right hemidiaphragm. Mild diffuse interstitial prominence is not significantly changed. Mediastinum: Mediastinal contours appear normal. Heart size is normal. Bones and chest wall: No suspicious bony lesions. Overlying soft tissues appear unremarkable. IMPRESSION: No acute cardiopulmonary abnormality. Stable right internal jugular catheter. Reviewed by: Chandu Guerrero MD on 09/25/2021 12:56 AM [facility] Approved by: Chandu Guerrero MD on 09/25/2021 12:56 AM [facility] Station ID: [id number]
[2021-09-25 05:20] LABS: CALCIUM, IONIZED 1.17 mmol/L (1.15-1.33); VBG PH 7.359 (7.31-7.41)
[2021-09-25 05:22] LABS: BASOPHILS % (AUTO) 0.6 %; EOSINOPHILS # (AUTO) 0.1 10^3/uL (0.0-0.7); EOSINOPHILS % (AUTO) 1.9 %; HCT - HEMATOCRIT 29.6 % (37.0-47.0); HGB - HEMOGLOBIN 10.9 g/dL (12.0-16.0); LYMPHOCYTES # (AUTO) 0.5 10^3/uL (1.5-3.5); LYMPHOCYTES % (AUTO) 7.1 %; MEAN CORPUSCULAR HEMOGLOBIN 31.1 pg (27.0-31.0); MEAN CORPUSCULAR HGB CONC 36.8 g/dL (32.0-36.0); MEAN CORPUSCULAR VOLUME 84.3 fL (81.0-99.0); MEAN PLATELET VOLUME 9.4 fL (7.9-10.8); MONOCYTES # (AUTO) 0.7 10^3/uL (0.0-1.0); MONOCYTES % (AUTO) 10.4 %; NEUTROPHILS % (AUTO) 78.9 %; PLT - PLATELET COUNT 115 10^3/uL (130-450); RED BLOOD COUNT 3.51 10^6/uL (4.20-5.40); RED CELL DISTRIBUTION WIDTH 14.2 % (12.0-15.0); WHITE BLOOD COUNT 6.4 x10^3/uL (4.8-10.8)
[2021-09-25 05:31] LABS: ALBUMIN/GLOBULIN RATIO 1.2 (1.0-2.2); BILIRUBIN,TOTAL 0.9 mg/dL (0.2-1.0); CALCIUM 8.8 mg/dL (8.5-10.3); CREATININE 0.7 mg/dL (0.4-1.0); POTASSIUM 3.7 mmol/L (3.5-5.0); TOTAL PROTEIN 5.6 g/dL (6.7-8.2)
[2021-09-25 05:35] LABS: CHOLESTEROL 134 mg/dL; HDL CHOLESTEROL 66 mg/dL; LDL CHOLESTEROL,CALCULATED 59 mg/dL; LDL/HDL RATIO 0.9 (<4.4); TRIGLYCERIDES 46 mg/dL; VLDL CHOLESTEROL 9 mg/dL
[2021-09-25] MEDS ORDERED: POTASSIUM CHLOR 20 MEQ/100 ML 20 MEQ/100 ML BAG IV ONE (05:36)
[2021-09-25] MEDS: PANTOPRAZOLE 40 MG TABLET PO SCH ×2 (06:03→15:39)
--- NOTE | 2021-09-25 07:40 | PROVIDER PROGRESS NOTE ---
Assessment/Plan - Problem List (1) Hyponatremia Assessment/Plan: Improving. Hypertonic saline was discontinued yesterday. Patient is currently on D5 plus half normal saline at 83 mL/h. Sodium level this morning was 125. We will continue to monitor. (2) Alcoholism Assessment/Plan: Librium was decreased From 25 mg to 10 mg p.o. twice daily. (3) Fall Qualifiers: Encounter type: initial encounter Qualified Code(s): W19.XXXA - Unspecified fall, initial encounter Assessment/Plan: CT head was unremarkable. Bruises on upper extremities are healing. (4) Hyperlipidemia Assessment/Plan: Lipid panel results were unremarkable. Currently not on any medication. (5) Bipolar disorder Qualifiers: Active/Remission status: remission status unspecified Qualified Code(s): F31.9 - Bipolar disorder, unspecified Assessment/Plan: On olanzapine (6) Hypertension Assessment/Plan: Amlodipine discontinued. Patient started on diltiazem CD 120 mg p.o. daily. (8) COPD (chronic obstructive pulmonary disease) Assessment/Plan: She has been tachypneic and mildly wheezy. Solu-Medrol 40 mg IV 3 times daily initiated. Budesonide 0.5 mg inhalation twice daily Xopenex 3 times daily. - Current Meds Current Meds: Current Medications Generic Name Dose Route Start Last Admin Trade Name Freq PRN Reason Stop Dose Admin Albuterol/Ipratropium 3 ml 09/23/21 16:36 09/24/21 21:11 Ipratropium/Albuterol 3 Ml Neb INH 3 ml Q4HR PRN Administration Wheezing Buspirone HCl 10 mg 09/23/21 23:00 09/24/21 21:11 Buspirone 5 Mg Tablet PO 10 mg BID YENNY Administration Dextrose/Sodium Chloride 1,000 mls @ 83.333 mls/hr 09/24/21 23:45 09/25/21 00:00 D5.45ns IV 83.333 mls/hr .Q12H YENNY Administration Lorazepam 1 mg 09/23/21 14:44 09/25/21 00:18 Lorazepam 2 Mg/Ml Vial IVP 1 mg Q30M PRN Administration CIWA >8 Protocol Olanzapine 20 mg 09/23/21 22:51 09/24/21 21:11 Olanzapine Odt 5 Mg Tablet TL 20 mg QPM YENNY Administration Pantoprazole Sodium 40 mg 09/23/21 16:00 09/25/21 06:03 Pantoprazole 40 Mg Tablet PO Not Given BIDAC YENNY Multivit/Folic Acid/Iron 1 tab 09/24/21 09:00 09/24/21 12:50 Vitamin Tablet PO 1 tab DAILY YENNY Administration Sodium Chloride 10 ml 09/23/21 17:00 09/25/21 00:19 Sodium Chloride Flush 0.9% 10 Ml Syringe IVP 10 ml 0100,0900,1700 YENNY Administration Sodium Chloride 10 ml 09/23/21 13:10 09/24/21 13:00 Sodium Chloride Flush 0.9% 10 Ml Syringe IVP 10 ml PRN PRN Administration NEEDED PER PROVIDER ORDERS Thiamine HCl 100 mg 09/24/21 09:00 09/24/21 12:50 Thiamine 100 Mg Tablet PO 100 mg DAILY YENNY Administration - Lab Result Fish Bone Diagrams: 09/25/21 04:00 09/25/21 04:00 - Additional Planning My Orders: My Active Orders 09/24/21 09:00 Vitamin [Trinatal Rx 1] 1 tab PO DAILY Thiamine [Vitamin B-1] 100 mg PO DAILY 09/26/21 05:00 CALCIUM, IONIZED ([facility]) [BG] DAILYLAB CBC - COMP BLD CT W/AUTO DIFF [HEME] DAILYLAB 09/27/21 05:00 CBC - COMP BLD CT W/AUTO DIFF [HEME] DAILYLAB 09/28/21 05:00 CBC - COMP BLD CT W/AUTO DIFF [HEME] DAILYLAB 09/29/21 05:00 CBC - COMP BLD CT W/AUTO DIFF [HEME] DAILYLAB 09/30/21 05:00 CBC - COMP BLD CT W/AUTO DIFF [HEME] DAILYLAB Subjective - Subjective Patient Reports: Other (Patient appears very sleepy this morning. However she readily answers questions appropriately. She is tachypneic and appears slightly dyspneic. She denies any other complaints.) Objective Vital Signs: Vital Signs - 24 hr 09/24/21 09/24/21 09/24/21 08:00 09:00 11:00 Temperature Heart Rate Heart Rate [ 107 H 125 H 110 H Monitoring electrodes] Respiratory 21 32 H 22 Rate Blood Pressure Blood Pressure 161/67 H 134/77 H 130/74 [Left Brachial artery] O2 Saturation 97 95 97 09/24/21 09/24/21 09/24/21 12:00 13:00 13:20 Temperature Heart Rate 116 H Heart Rate [ 111 H 118 H Monitoring electrodes] Respiratory 20 22 20 Rate Blood Pressure Blood Pressure 135/50 H 121/78 [Left Brachial artery] O2 Saturation 96 95 09/24/21 09/24/21 09/24/21 14:00 15:00 16:00 Temperature 36.5 C Heart Rate Heart Rate [ 120 H 123 H 117 H Monitoring electrodes] Respiratory 18 26 H 18 Rate Blood Pressure Blood Pressure 144/66 H 134/85 H 168/75 H [Left Brachial artery] O2 Saturation 94 96 96 09/24/21 09/24/21 09/24/21 17:00 18:00 19:00 Temperature Heart Rate Heart Rate [ 115 H 116 H 111 H Monitoring electrodes] Respiratory 20 21 20 Rate Blood Pressure Blood Pressure 146/68 H 143/77 H 143/73 H [Left Brachial artery] O2 Saturation 94 97 94 09/24/21 09/24/21 09/24/21 20:00 21:00 22:00 Temperature 36.5 C Heart Rate Heart Rate [ 120 H 123 H 125 H Monitoring electrodes] Respiratory 23 24 22 Rate Blood Pressure Blood Pressure 141/72 H 127/51 L 139/75 H [Left Brachial artery] O2 Saturation 100 100 97 09/24/21 09/25/21 09/25/21 23:00 00:00 00:01 Temperature Heart Rate Heart Rate [ 126 H 120 H Monitoring electrodes] Respiratory 21 16 Rate Blood Pressure 133/61 H Blood Pressure 159/77 H 133/61 H [Left Brachial artery] O2 Saturation 100 100 09/25/21 09/25/21 09/25/21 00:05 00:10 00:15 Temperature Heart Rate Heart Rate [ 105 H 105 H 103 H Monitoring electrodes] Respiratory Rate Blood Pressure Blood Pressure 121/71 135/76 H 121/68 [Left Brachial artery] O2 Saturation 09/25/21 09/25/21 09/25/21 01:00 02:00 03:00 Temperature Heart Rate Heart Rate [ 102 H 108 H 103 H Monitoring electrodes] Respiratory 14 16 14 Rate Blood Pressure Blood Pressure 111/52 L 155/68 H 116/63 [Left Brachial artery] O2 Saturation 100 100 98 09/25/21 09/25/21 09/25/21 04:00 05:00 06:00 Temperature 36.2 C L Heart Rate Heart Rate [ 103 H 104 H 107 H Monitoring electrodes] Respiratory 14 14 15 Rate Blood Pressure Blood Pressure 116/54 L 117/55 L 123/84 H [Left Brachial artery] O2 Saturation 94 98 100 09/25/21 07:00 Temperature Heart Rate Heart Rate [ 123 H Monitoring electrodes] Respiratory 21 Rate Blood Pressure Blood Pressure 123/84 H [Left Brachial artery] O2 Saturation 92 Oxygen O2 Source Room air I&O (Last 24 Hrs): Intake and Output Totals x24h 09/23/21 09/24/21 09/25/21 23:59 23:59 23:59 Intake Total 2663.0 1732.5 Output Total 1850 2611 850 Balance 813.0 -878.5 -850 General: Alert, Oriented x3 HEENT: PERRLA, EOMI Neck: Supple, No JVD Neuro: Alert, Oriented Times 3 Cardiovascular: Other (tachycardic) Respiratory: Chest non-tender, No respiratory distress, Breath sounds nml Abdomen: Normal bowel sounds, Soft, No tenderness, No masses Extremities: No clubbing, No edema, No tenderness/swelling Skin: No rashes Comments/Notes: Extensive bruising on upper extremities - Results Results: Laboratory Results WBC 6.4 x10^3/uL (4.8-10.8) 09/25/21 04:00 RBC 3.51 10^6/uL (4.20-5.40) L 09/25/21 04:00 Hgb 10.9 g/dL (12.0-16.0) L 09/25/21 04:00 Hct 29.6 % (37.0-47.0) L 09/25/21 04:00 MCV 84.3 fL (81.0-99.0) 09/25/21 04:00 MCH 31.1 pg (27.0-31.0) H 09/25/21 04:00 MCHC 36.8 g/dL (32.0-36.0) H 09/25/21 04:00 RDW 14.2 % (12.0-15.0) 09/25/21 04:00 Plt Count 115 10^3/uL (130-450) L 09/25/21 04:00 MPV 9.4 fL (7.9-10.8) 09/25/21 04:00 Neut # (Auto) 5.0 10^3/uL (1.5-6.6) 09/25/21 04:00 Lymph # (Auto) 0.5 10^3/uL (1.5-3.5) L 09/25/21 04:00 [place] # (Auto) 0.7 10^3/uL (0.0-1.0) 09/25/21 04:00 Eos # (Auto) 0.1 10^3/uL (0.0-0.7) 09/25/21 04:00 Baso # (Auto) 0.0 10^3/uL (0.0-0.1) 09/25/21 04:00 Absolute Nucleated RBC 0.00 x10^3/uL 09/25/21 04:00 Nucleated RBC % 0.0 /100WBC 09/25/21 04:00 Manual Slide Review Indicated 09/23/21 11:45 WBC Morphology NORMAL APPEARANCE (NORMAL) 09/23/21 11:45 Platelet Estimate NORMAL (130-450,000) (NORMAL) 09/23/21 11:45 Platelet Morphology NORMAL APPEARANCE (NORMAL) 09/23/21 11:45 RBC Morph Micro Appear NORMAL APPEARANCE (NORMAL) 09/23/21 11:45 Bld Gas Analysis Time 0000 09/24/21 23:54 Sample Site RIGHT RADIAL 09/24/21 23:54 ABG pH 7.48 (7.35-7.45) H 09/24/21 23:54 ABG pCO2 36 mmHg (34-45) 09/24/21 23:54 ABG pO2 70 mmHg (80-100) L 09/24/21 23:54 ABG HCO3 26.6 mmol/L (22.0-26.0) H 09/24/21 23:54 ABG Total CO2 28.0 MMOL/L (21.0-29.0) 09/24/21 23:54 ABG O2 Saturation 95 % (94-98) 09/24/21 23:54 ABG Base Excess 3.0 mmol/L (-2.0-3.0) 09/24/21 23:54 Damian Test POSITIVE 09/24/21 23:54 VBG pH 7.359 (7.31-7.41) 09/25/21 04:00 Ionized Calcium 1.17 mmol/L (1.15-1.33) 09/25/21 04:00 FiO2 21.00 09/24/21 23:54 Sodium 125 mmol/L (135-145) L 09/25/21 04:00 Potassium 3.7 mmol/L (3.5-5.0) 09/25/21 04:00 Chloride 90 mmol/L (101-111) L 09/25/21 04:00 Carbon Dioxide 27 mmol/L (21-32) 09/25/21 04:00 Anion Gap 8.0 (6-13) 09/25/21 04:00 BUN 7 mg/dL (6-20) 09/25/21 04:00 Creatinine 0.7 mg/dL (0.4-1.0) 09/25/21 04:00 Estimated GFR (MDRD) 84 (>89) L 09/25/21 04:00 Glucose 160 mg/dL (70-100) H 09/25/21 04:00 Calcium 8.8 mg/dL (8.5-10.3) 09/25/21 04:00 Phosphorus 1.1 mg/dL (2.5-4.6) L 09/24/21 05:00 Magnesium 1.8 mg/dL (1.7-2.8) 09/24/21 05:00 Total Bilirubin 0.9 mg/dL (0.2-1.0) 09/25/21 04:00 AST 48 IU/L (10-42) H 09/25/21 04:00 ALT 31 IU/L (10-60) 09/25/21 04:00 Alkaline Phosphatase 47 IU/L (42-121) 09/25/21 04:00 Troponin I High Sens 17.8 ng/L (2.3-14.8) H* 09/25/21 04:00 Total Protein 5.6 g/dL (6.7-8.2) L 09/25/21 04:00 Albumin 3.0 g/dL (3.2-5.5) L 09/25/21 04:00 Globulin 2.6 g/dL (2.1-4.2) 09/25/21 04:00 Albumin/Globulin Ratio 1.2 (1.0-2.2) 09/25/21 04:00 Triglycerides 46 mg/dL (-149) 09/25/21 04:00 Cholesterol 134 mg/dL (-199) 09/25/21 04:00 LDL Cholesterol, Calc 59 mg/dL (-129) 09/25/21 04:00 VLDL Cholesterol 9 mg/dL 09/25/21 04:00 HDL Cholesterol 66 mg/dL (60-) 09/25/21 04:00 LDL/HDL Ratio 0.9 (<4.4) 09/25/21 04:00 Cholesterol/HDL Ratio 2.0 (<4.4) 09/25/21 04:00 Lipase 44 U/L (22-51) 09/23/21 11:45 Urine Color YELLOW 09/23/21 17:08 Urine Clarity HAZY (CLEAR) 09/23/21 17:08 Urine pH 6.0 PH (5.0-7.5) 09/23/21 17:08 Ur Specific [place] 1.015 (1.002-1.030) 09/23/21 17:08 Urine Protein TRACE mg/dL (NEGATIVE) 09/23/21 17:08 Urine Glucose (UA) 100 mg/dL (NEGATIVE) H 09/23/21 17:08 Urine Ketones 15 mg/dL (NEGATIVE) H 09/23/21 17:08 Urine Occult Blood MODERATE (NEGATIVE) H 09/23/21 17:08 Urine Nitrite NEGATIVE (NEGATIVE) 09/23/21 17:08 Urine Bilirubin NEGATIVE (NEGATIVE) 09/23/21 17:08 Urine Urobilinogen 4 E.U./dL (NORMAL) H 09/23/21 17:08 Ur Leukocyte Esterase NEGATIVE (NEGATIVE) 09/23/21 17:08 Urine RBC 0-5 /HPF (0-5) 09/23/21 17:08 Urine WBC 0-3 /HPF (0-5) 09/23/21 17:08 Ur Squamous Epith Cells RARE Squamous (<= Few) 09/23/21 17:08 Urine Bacteria Rare /HPF (None Seen) 09/23/21 17:08 Ur Microscopic Review INDICATED 09/23/21 17:08 Urine Culture Comments NOT INDICATED 09/23/21 17:08 Nasal Screen MRSA (PCR) NEGATIVE (NEGATIVE) 09/23/21 21:25 Ethyl Alcohol 110.6 mg/dL 09/23/21 11:45 SARS-CoV-2 (PCR) NOT DETECTED 09/23/21 12:50 ABX Reporting Has patient been on IV antibiotics over the past 48 hours?: No
[2021-09-25] MEDS ORDERED: chlordiazePOXIDE 25 MG CAPSULE PO SCH (08:00)
[2021-09-25] MEDS: PRENATAL VITAMIN TABLET PO SCH (08:44)
[2021-09-25] MEDS: busPIRone 5 MG TABLET PO SCH ×2 (08:46→20:30)
[2021-09-25] MEDS: THIAMINE 100 MG TABLET PO SCH (08:51)
[2021-09-25] MEDS ORDERED: diltiaZEM CD 120 MG CAPSULE PO SCH (09:00)
[2021-09-25] MEDS: diltiaZEM CD 120 MG CAPSULE PO SCH (09:43)
[2021-09-25] MEDS: methylPREDNISolone SUCCINATE 40 MG/ML VIAL IVP SCH ×3 (09:45→21:22)
[2021-09-25] MEDS: BUDESONIDE 0.5 MG/2 ML NEB INH SCH ×2 (10:21→21:06)
--- NOTE | 2021-09-25 10:34 | XRAY Report ---
PROCEDURE: Chest 1 View X-Ray INDICATIONS: dyspnea COMMENTS: Dyspnea PRIORS: 09/24/21, 09/23/21, 09/22/21, 07/21/21 TECHNIQUE: One view of the chest was acquired. COMPARISON: 09/24/2021 FINDINGS: Surgical changes and devices: Right IJ catheter is well-positioned. Lungs and pleura: No pleural effusions or pneumothorax. Lungs are clear. Elevation of the right hemidiaphragm is unchanged. Mediastinum: Mediastinal contours appear normal. Heart size is normal. Bones and chest wall: No suspicious bony lesions. Overlying soft tissues appear unremarkable. IMPRESSION: No acute cardiopulmonary abnormality. Reviewed by: Dain Us on 09/25/2021 10:33 AM [facility] Approved by: Dain Us on 09/25/2021 10:33 AM [facility] Station ID: [id number]
[2021-09-25] MEDS: DEXTROSE 5%-0.45% NACL 1,000 ML IV SCH ×2 (13:22)
[2021-09-25] MEDS: LEVALBUTEROL 1.25 MG/3 ML NEB INH SCH ×2 (13:29→21:05)
[2021-09-25 13:49] LABS: CALCIUM 8.7 mg/dL (8.5-10.3); CREATININE 0.8 mg/dL (0.4-1.0); POTASSIUM 4.3 mmol/L (3.5-5.0)
[2021-09-25] MEDS ORDERED: INSULIN ASPART 300 UNIT/3 ML PEN SUBQ SCH (17:00)
[2021-09-25] MEDS: LEVALBUTEROL 1.25 MG/3 ML NEB INH PRN (17:04)
[2021-09-25] MEDS ORDERED: LEVALBUTEROL 1.25 MG/3 ML NEB INH ONE (17:11)
[2021-09-25] MEDS ORDERED: BUDESONIDE 0.5 MG/2 ML NEB INH SCH (19:00)
[2021-09-25] MEDS: INSULIN ASPART 300 UNIT/3 ML PEN SUBQ SCH (20:29)
[2021-09-25] MEDS: OLANZapine ODT 5 MG TABLET TL SCH (20:30)
[2021-09-25] MEDS: NICOTINE 14 MG PATCH TOP SCH (21:15)
[2021-09-25] MEDS: SODIUM CHLORIDE FLUSH 0.9% 10 ML SYRINGE IVP PRN (21:23)
[2021-09-25] MEDS ORDERED: chlordiazePOXIDE 5 MG CAPSULE PO SCH (22:00)
[2021-09-26] MEDS: DEXTROSE 5%-0.45% NACL 1,000 ML IV SCH ×2 (00:04→01:17)
[2021-09-26] MEDS: SODIUM CHLORIDE FLUSH 0.9% 10 ML SYRINGE IVP PRN ×2 (04:58→05:28)
[2021-09-26 05:14] LABS: CALCIUM, IONIZED 1.22 mmol/L (1.15-1.33); VBG PH 7.401 (7.31-7.41)
[2021-09-26 05:16] LABS: BASOPHILS % (AUTO) 0.1 %; EOSINOPHILS % (AUTO) 0.1 %; HCT - HEMATOCRIT 29.5 % (37.0-47.0); LYMPHOCYTES # (AUTO) 0.2 10^3/uL (1.5-3.5); LYMPHOCYTES % (AUTO) 2.6 %; MEAN CORPUSCULAR HEMOGLOBIN 32.2 pg (27.0-31.0); MEAN CORPUSCULAR HGB CONC 37.3 g/dL (32.0-36.0); MEAN CORPUSCULAR VOLUME 86.3 fL (81.0-99.0); MEAN PLATELET VOLUME 9.4 fL (7.9-10.8); MONOCYTES # (AUTO) 0.3 10^3/uL (0.0-1.0); MONOCYTES % (AUTO) 3.4 %; NEUTROPHILS # (AUTO) 8.4 10^3/uL (1.5-6.6); NEUTROPHILS % (AUTO) 92.8 %; PLT - PLATELET COUNT 97 10^3/uL (130-450); RED BLOOD COUNT 3.42 10^6/uL (4.20-5.40); RED CELL DISTRIBUTION WIDTH 14.2 % (12.0-15.0); WHITE BLOOD COUNT 9.1 x10^3/uL (4.8-10.8)
[2021-09-26 05:27] LABS: ALBUMIN 3.4 g/dL (3.2-5.5); ALBUMIN/GLOBULIN RATIO 1.3 (1.0-2.2); BILIRUBIN,TOTAL 0.7 mg/dL (0.2-1.0); CALCIUM 9.2 mg/dL (8.5-10.3); CREATININE 0.8 mg/dL (0.4-1.0); MAGNESIUM 2.1 mg/dL (1.7-2.8); PHOSPHORUS 3.7 mg/dL (2.5-4.6); POTASSIUM 4.5 mmol/L (3.5-5.0); TOTAL PROTEIN 6.1 g/dL (6.7-8.2)
[2021-09-26] MEDS: methylPREDNISolone SUCCINATE 40 MG/ML VIAL IVP SCH (05:28)
[2021-09-26] MEDS: PANTOPRAZOLE 40 MG TABLET PO SCH ×2 (06:11→15:18)
[2021-09-26] MEDS: LEVALBUTEROL 1.25 MG/3 ML NEB INH SCH ×3 (07:33→18:05)
[2021-09-26] MEDS: BUDESONIDE 0.5 MG/2 ML NEB INH SCH ×2 (07:33→21:00)
[2021-09-26] MEDS ORDERED: SODIUM CHLORIDE 0.9% 1,000 ML IV SCH (08:00)
[2021-09-26] MEDS: INSULIN ASPART 300 UNIT/3 ML PEN SUBQ SCH ×4 (08:16→20:51)
[2021-09-26] MEDS: SODIUM CHLORIDE 1 GM TABLET PO SCH ×2 (08:38→17:05)
[2021-09-26] MEDS: busPIRone 5 MG TABLET PO SCH ×2 (08:39→21:14)
[2021-09-26] MEDS: diltiaZEM CD 120 MG CAPSULE PO SCH (08:39)
[2021-09-26] MEDS: polyethylene glycoL 3350 17 GM PACKET PO SCH (08:39)
[2021-09-26] MEDS: NICOTINE 14 MG PATCH TOP SCH (08:39)
[2021-09-26] MEDS: THIAMINE 100 MG TABLET PO SCH (08:40)
[2021-09-26] MEDS: PRENATAL VITAMIN TABLET PO SCH (08:40)
[2021-09-26] MEDS: SODIUM CHLORIDE FLUSH 0.9% 10 ML SYRINGE IVP SCH ×3 (08:40→23:50)
--- NOTE | 2021-09-26 09:08 | PROVIDER PROGRESS NOTE ---
Assessment/Plan - Problem List (1) Hyponatremia Assessment/Plan: Acute on chronic, secondary to hypovolemia and alcohol abuse. The patient typically has hyponatremia with sodium levels in the 120s. Upon admission her sodium was 108 and serum osmolaity was 228. She was on 3% normal saline for 2 days before being stopped on 09/25/21. Today her sodium is 126. Plan: Discontinue D5 1/2 NS. Start 1g Sodium tablet PO twice daily. Continue to monitor sodium level and recheck at 1600 today. (2) Alcoholism Assessment/Plan: Patient has a history of alcohol abuse and on admission reported that she drinks 3 beers daily. Her admission blood alcohol level was 110. She was started on CIWA protocol and has ranged 0-15. She is receiving Librium 10mg PO twice daily. Today she is more alert and able to answer simple questions. Her heart rate ranges 90-100s. She continues to have bilateral upper extremity tremors with fine motor activity. Nurse reported that patient was feeling anxious. Plan: Continue Librium 10mg PO twice daily. Continue with vitamin B1 and multivitamin daily. (3) Fall Qualifiers: Encounter type: initial encounter Qualified Code(s): W19.XXXA - Unspecified fall, initial encounter Assessment/Plan: Patient has a history of alcohol abuse and reported becoming dizzy after drinking and fell. This is most likely a mechanical fall related to alcohol in toxication. She has ecchymosis to bilateral arms and to the inferior lateral aspect of the left orbit. CT of head showed "No acute intracranial abnormalities or acute calvarial fracture. Study was degraded by moderate patient motion artifact". Patient is more alert today and ambulating in the room with assistance and a walker. Plan: We will continue to monitor the patient. Continue Librium 10mg PO twice daily. PT to evaluate and treat. (4) Hypertension Assessment/Plan: Patient has a history of hypertension and takes amlodipine 10 mg PO daily, spironolactone 100mg PO daily, and Lasix 40mg PO daily. Her systolic blood pressure is ranging 120-150s with diastolic 60-90s. She was started on Cardizem 120mg PO daily on 09/24/21 for hypertension. Plan: Resume Amlodipine 10mg PO daily for hypertension. Start Propranolol 20mg PO twice daily for hypertension and essential tremors. Discontinue Cardizem today. Continue to hold Lasix and spironolactone until sodium normalizes. (5) Essential tremor Assessment/Plan: Patient has a history of essential tremors and took Propranolol 20 mg at home. The dosage was confirmed by pharmacist today. She continues to have bilateral upper extremity tremors with fine motor activities. Plan: Start Propranolol 20mg PO twice daily for essential tremors and hypertension. (6) Bipolar 1 disorder Assessment/Plan: Patient has a history of bipolar and takes olanzapine 20mg po nightly at home. Plan: Continue Olanzapine 20mg PO nightly. - Current Meds Current Meds: Current Medications Generic Name Dose Route Start Last Admin Trade Name Freq PRN Reason Stop Dose Admin Budesonide 0.5 mg 09/25/21 09:00 09/26/21 07:33 Budesonide 0.5 Mg/2 Ml Neb INH 0.5 mg RTBID YENNY Administration Buspirone HCl 10 mg 09/23/21 23:00 09/26/21 08:39 Buspirone 5 Mg Tablet PO 10 mg BID YENNY Administration Diltiazem HCl 120 mg 09/25/21 09:00 09/26/21 08:39 Diltiazem Cd 120 Mg Capsule PO 120 mg DAILY YENNY Administration Insulin Aspart 3 - 11 unit 09/25/21 21:00 09/26/21 08:16 Insulin Aspart 300 Unit/3 Ml Pen SUBQ 11 unit 0800,1200,1700,2100 YENNY Administration Protocol Levalbuterol HCl 1.25 mg 09/25/21 13:00 09/26/21 07:33 Levalbuterol 1.25 Mg/3 Ml Neb INH 1.25 mg RTTID YENNY Administration Levalbuterol HCl 1.25 mg 09/25/21 16:59 09/25/21 17:04 Levalbuterol 1.25 Mg/3 Ml Neb INH 1.25 mg Q4H PRN Administration Shortness of Air/Wheezing Lorazepam 1 mg 09/23/21 14:44 09/25/21 00:18 Lorazepam 2 Mg/Ml Vial IVP 1 mg Q30M PRN Administration CIWA >8 Protocol Methylprednisolone 40 mg 09/25/21 09:00 09/26/21 05:28 Methylprednisolone Succinate 40 Mg/Ml Vial IVP 09/26/21 22:01 40 mg TID YENNY Administration Nicotine 1 patch 09/25/21 20:40 09/26/21 08:39 Nicotine 14 Mg Patch TOP 1 patch DAILY YENNY Administration Olanzapine 20 mg 09/23/21 22:51 09/25/21 20:30 Olanzapine Odt 5 Mg Tablet TL 20 mg QPM YENNY Administration Pantoprazole Sodium 40 mg 09/23/21 16:00 09/26/21 06:11 Pantoprazole 40 Mg Tablet PO 40 mg BIDAC YENNY Administration Polyethylene Glycol 17 gm 09/26/21 09:00 09/26/21 08:39 Polyethylene Glycol 3350 17 Gm Packet PO 17 gm DAILY YENNY Administration Multivit/Folic Acid/Iron 1 tab 09/24/21 09:00 09/26/21 08:40 Vitamin Tablet PO 1 tab DAILY YENNY Administration Sodium Chloride 10 ml 09/23/21 17:00 09/26/21 08:40 Sodium Chloride Flush 0.9% 10 Ml Syringe IVP 10 ml 0100,0900,1700 YENNY Administration Sodium Chloride 10 ml 09/23/21 13:10 09/26/21 05:28 Sodium Chloride Flush 0.9% 10 Ml Syringe IVP 10 ml PRN PRN Administration NEEDED PER PROVIDER ORDERS Sodium Chloride 20 ml 09/25/21 23:22 09/26/21 04:58 Sodium Chloride Flush 0.9% 10 Ml Syringe IVP 20 ml PRN PRN Administration After Blood Draw Sodium Chloride 1 gm 09/26/21 08:00 09/26/21 08:38 Sodium Chloride 1 Gm Tablet PO 1 gm BIDWM YENNY Administration Thiamine HCl 100 mg 09/24/21 09:00 09/26/21 08:40 Thiamine 100 Mg Tablet PO 100 mg DAILY YENNY Administration - Lab Result Fish Bone Diagrams: 09/26/21 04:45 09/26/21 16:20 Subjective - Subjective Patient Reports: Feeling Better, Other (Patient is awake eating breakfast in bed and responding appropriately to questions.) Nursing Reports: Other (Patient is becoming restless and anxious. She is able to ambulate with assistance but is impulsive.) Objective Vital Signs: Vital Signs - 24 hr 09/25/21 09/25/21 09/25/21 10:00 10:22 11:00 Temperature Heart Rate 114 H Heart Rate [ 117 H 115 H Monitoring electrodes] Respiratory 22 20 23 Rate Blood Pressure 139/66 H 128/68 [Left Brachial artery] Blood Pressure [Right Brachial artery] O2 Saturation 94 95 09/25/21 09/25/21 09/25/21 12:00 13:00 13:31 Temperature Heart Rate 105 H Heart Rate [ 118 H 114 H Monitoring electrodes] Respiratory 24 21 20 Rate Blood Pressure 136/79 H 119/69 [Left Brachial artery] Blood Pressure [Right Brachial artery] O2 Saturation 96 98 09/25/21 09/25/21 09/25/21 14:00 15:00 16:00 Temperature Heart Rate Heart Rate [ 111 H 111 H 114 H Monitoring electrodes] Respiratory 19 21 24 Rate Blood Pressure 135/74 H 125/68 141/70 H [Left Brachial artery] Blood Pressure [Right Brachial artery] O2 Saturation 96 96 99 09/25/21 09/25/21 09/25/21 17:00 17:05 18:00 Temperature Heart Rate 105 H Heart Rate [ 109 H 124 H Monitoring electrodes] Respiratory 18 22 24 Rate Blood Pressure 149/64 H 145/60 H [Left Brachial artery] Blood Pressure [Right Brachial artery] O2 Saturation 98 100 09/25/21 09/25/21 09/25/21 19:00 20:00 21:00 Temperature 36.6 C Heart Rate Heart Rate [ 108 H 114 H 108 H Monitoring electrodes] Respiratory 14 26 H 23 Rate Blood Pressure [Left Brachial artery] Blood Pressure 158/75 H 134/71 H [Right Brachial artery] O2 Saturation 95 97 96 09/25/21 09/25/21 09/25/21 21:06 22:00 23:00 Temperature Heart Rate 109 H Heart Rate [ 114 H 110 H Monitoring electrodes] Respiratory 18 17 18 Rate Blood Pressure [Left Brachial artery] Blood Pressure 126/62 134/65 H [Right Brachial artery] O2 Saturation 97 96 09/26/21 09/26/21 09/26/21 00:00 01:00 02:00 Temperature 36.4 C L Heart Rate Heart Rate [ 123 H 98 94 Monitoring electrodes] Respiratory 21 17 14 Rate Blood Pressure [Left Brachial artery] Blood Pressure 160/77 H 122/58 L 121/54 L [Right Brachial artery] O2 Saturation 95 93 96 09/26/21 09/26/21 09/26/21 03:00 04:00 05:00 Temperature 36.5 C Heart Rate Heart Rate [ 108 H 92 102 H Monitoring electrodes] Respiratory 17 13 15 Rate Blood Pressure [Left Brachial artery] Blood Pressure 154/71 H 119/62 151/63 H [Right Brachial artery] O2 Saturation 95 93 98 09/26/21 09/26/21 09/26/21 06:04 07:00 07:34 Temperature Heart Rate 98 Heart Rate [ 100 100 Monitoring electrodes] Respiratory 15 18 20 Rate Blood Pressure [Left Brachial artery] Blood Pressure 144/62 H 136/58 H [Right Brachial artery] O2 Saturation 100 97 09/26/21 08:00 Temperature 36.8 C Heart Rate Heart Rate [ 110 H Monitoring electrodes] Respiratory 20 Rate Blood Pressure [Left Brachial artery] Blood Pressure 142/62 H [Right Brachial artery] O2 Saturation 98 Oxygen O2 Source Room air I&O (Last 24 Hrs): Intake and Output Totals x24h 09/24/21 09/25/21 09/26/21 23:59 23:59 23:59 Intake Total 1732.5 2933.643 1349.700 Output Total 2611 2615 880 Balance -878.5 318.643 469.700 General: Alert, Cooperative, No acute distress HEENT: Other (ecchymosis to the inferior lateral aspect of the left orbit.) Neuro: Alert, Oriented Times 3, Other (tremors with fine motor activity of bilateral arms) Cardiovascular: Regular rate, Normal S1, Normal S2, No murmurs Respiratory: Chest non-tender, No respiratory distress, Breath sounds nml, Other (Diminished bilateral bases.) Abdomen: Normal bowel sounds, Soft, No tenderness Extremities: No cyanosis, No edema, Other (Clubbing to bilateral finger and toe nails) Comments/Notes: Eccymosis to bilateral arms and to the inferior lateral aspect of the left orbit. - Results Results: Laboratory Results WBC 9.1 x10^3/uL (4.8-10.8) 09/26/21 04:45 RBC 3.42 10^6/uL (4.20-5.40) L 09/26/21 04:45 Hgb 11.0 g/dL (12.0-16.0) L 09/26/21 04:45 Hct 29.5 % (37.0-47.0) L 09/26/21 04:45 MCV 86.3 fL (81.0-99.0) 09/26/21 04:45 MCH 32.2 pg (27.0-31.0) H 09/26/21 04:45 MCHC 37.3 g/dL (32.0-36.0) H 09/26/21 04:45 RDW 14.2 % (12.0-15.0) 09/26/21 04:45 Plt Count 97 10^3/uL (130-450) L 09/26/21 04:45 MPV 9.4 fL (7.9-10.8) 09/26/21 04:45 Neut # (Auto) 8.4 10^3/uL (1.5-6.6) H 09/26/21 04:45 Lymph # (Auto) 0.2 10^3/uL (1.5-3.5) L 09/26/21 04:45 Mccormick # (Auto) 0.3 10^3/uL (0.0-1.0) 09/26/21 04:45 Eos # (Auto) 0.0 10^3/uL (0.0-0.7) 09/26/21 04:45 Baso # (Auto) 0.0 10^3/uL (0.0-0.1) 09/26/21 04:45 Absolute Nucleated RBC 0.00 x10^3/uL 09/26/21 04:45 Nucleated RBC % 0.0 /100WBC 09/26/21 04:45 Manual Slide Review Indicated 09/23/21 11:45 WBC Morphology NORMAL APPEARANCE (NORMAL) 09/23/21 11:45 Platelet Estimate NORMAL (130-450,000) (NORMAL) 09/23/21 11:45 Platelet Morphology NORMAL APPEARANCE (NORMAL) 09/23/21 11:45 RBC Morph Micro Appear NORMAL APPEARANCE (NORMAL) 09/23/21 11:45 Bld Gas Analysis Time 0000 09/24/21 23:54 Sample Site RIGHT RADIAL 09/24/21 23:54 ABG pH 7.48 (7.35-7.45) H 09/24/21 23:54 ABG pCO2 36 mmHg (34-45) 09/24/21 23:54 ABG pO2 70 mmHg (80-100) L 09/24/21 23:54 ABG HCO3 26.6 mmol/L (22.0-26.0) H 09/24/21 23:54 ABG Total CO2 28.0 MMOL/L (21.0-29.0) 09/24/21 23:54 ABG O2 Saturation 95 % (94-98) 09/24/21 23:54 ABG Base Excess 3.0 mmol/L (-2.0-3.0) 09/24/21 23:54 Damian Test POSITIVE 09/24/21 23:54 VBG pH 7.401 (7.31-7.41) 09/26/21 04:45 Ionized Calcium 1.22 mmol/L (1.15-1.33) 09/26/21 04:45 FiO2 21.00 09/24/21 23:54 Sodium 126 mmol/L (135-145) L 09/26/21 04:45 Potassium 4.5 mmol/L (3.5-5.0) 09/26/21 04:45 Chloride 91 mmol/L (101-111) L 09/26/21 04:45 Carbon Dioxide 23 mmol/L (21-32) 09/26/21 04:45 Anion Gap 12.0 (6-13) 09/26/21 04:45 BUN 9 mg/dL (6-20) 09/26/21 04:45 Creatinine 0.8 mg/dL (0.4-1.0) 09/26/21 04:45 Estimated GFR (MDRD) 72 (>89) L 09/26/21 04:45 Glucose 285 mg/dL (70-100) H 09/26/21 04:45 Calcium 9.2 mg/dL (8.5-10.3) 09/26/21 04:45 Phosphorus 3.7 mg/dL (2.5-4.6) 09/26/21 04:45 Magnesium 2.1 mg/dL (1.7-2.8) 09/26/21 04:45 Total Bilirubin 0.7 mg/dL (0.2-1.0) 09/26/21 04:45 AST 35 IU/L (10-42) 09/26/21 04:45 ALT 31 IU/L (10-60) 09/26/21 04:45 Alkaline Phosphatase 47 IU/L (42-121) 09/26/21 04:45 Troponin I High Sens 17.8 ng/L (2.3-14.8) H* 09/25/21 04:00 Total Protein 6.1 g/dL (6.7-8.2) L 09/26/21 04:45 Albumin 3.4 g/dL (3.2-5.5) 09/26/21 04:45 Globulin 2.7 g/dL (2.1-4.2) 09/26/21 04:45 Albumin/Globulin Ratio 1.3 (1.0-2.2) 09/26/21 04:45 Triglycerides 46 mg/dL (-149) 09/25/21 04:00 Cholesterol 134 mg/dL (-199) 09/25/21 04:00 LDL Cholesterol, Calc 59 mg/dL (-129) 09/25/21 04:00 VLDL Cholesterol 9 mg/dL 09/25/21 04:00 HDL Cholesterol 66 mg/dL (60-) 09/25/21 04:00 LDL/HDL Ratio 0.9 (<4.4) 09/25/21 04:00 Cholesterol/HDL Ratio 2.0 (<4.4) 09/25/21 04:00 Lipase 44 U/L (22-51) 09/23/21 11:45 Urine Color YELLOW 09/23/21 17:08 Urine Clarity HAZY (CLEAR) 09/23/21 17:08 Urine pH 6.0 PH (5.0-7.5) 09/23/21 17:08 Ur Specific Vance 1.015 (1.002-1.030) 09/23/21 17:08 Urine Protein TRACE mg/dL (NEGATIVE) 09/23/21 17:08 Urine Glucose (UA) 100 mg/dL (NEGATIVE) H 09/23/21 17:08 Urine Ketones 15 mg/dL (NEGATIVE) H 09/23/21 17:08 Urine Occult Blood MODERATE (NEGATIVE) H 09/23/21 17:08 Urine Nitrite NEGATIVE (NEGATIVE) 09/23/21 17:08 Urine Bilirubin NEGATIVE (NEGATIVE) 09/23/21 17:08 Urine Urobilinogen 4 E.U./dL (NORMAL) H 09/23/21 17:08 Ur Leukocyte Esterase NEGATIVE (NEGATIVE) 09/23/21 17:08 Urine RBC 0-5 /HPF (0-5) 09/23/21 17:08 Urine WBC 0-3 /HPF (0-5) 09/23/21 17:08 Ur Squamous Epith Cells RARE Squamous (<= Few) 09/23/21 17:08 Urine Bacteria Rare /HPF (None Seen) 09/23/21 17:08 Ur Microscopic Review INDICATED 09/23/21 17:08 Urine Culture Comments NOT INDICATED 09/23/21 17:08 Nasal Screen MRSA (PCR) NEGATIVE (NEGATIVE) 09/23/21 21:25 Ethyl Alcohol 110.6 mg/dL 09/23/21 11:45 SARS-CoV-2 (PCR) NOT DETECTED 09/23/21 12:50 ABX Reporting Has patient been on IV antibiotics over the past 48 hours?: No
[2021-09-26] MEDS: LEVALBUTEROL 1.25 MG/3 ML NEB INH PRN ×2 (09:36→23:55)
[2021-09-26] MEDS: chlordiazePOXIDE 5 MG CAPSULE PO SCH ×2 (10:27→21:14)
[2021-09-26] MEDS: ACETAMINOPHEN 325 MG TABLET PO PRN ×2 (10:27→17:05)
[2021-09-26 11:36] LABS: ESTIMATED AVERAGE GLUCOSE 114 mg/dL (70-100); HEMOGLOBIN A1c% 5.6 % (4.27-6.07)
[2021-09-26] MEDS ORDERED: INSULIN ASPART 300 UNIT/3 ML PEN SUBQ ONE (13:51)
[2021-09-26] MEDS: PROPRANOLOL 10 MG TABLET PO SCH ×2 (15:18→21:14)
[2021-09-26 16:52] LABS: CALCIUM 9.9 mg/dL (8.5-10.3); CREATININE 0.8 mg/dL (0.4-1.0); POTASSIUM 5.1 mmol/L (3.5-5.0)
[2021-09-26] MEDS: LORazepam 2 MG/ML VIAL IVP PRN (18:31)
[2021-09-26] MEDS: OLANZapine ODT 5 MG TABLET TL SCH (21:14)
[2021-09-26] MEDS ORDERED: BUDESONIDE 0.5 MG/2 ML NEB INH SCH (22:00)
[2021-09-27] MEDS: SODIUM CHLORIDE FLUSH 0.9% 10 ML SYRINGE IVP PRN ×3 (02:57→07:08)
[2021-09-27] MEDS: LORazepam 2 MG/ML VIAL IVP PRN (02:57)
[2021-09-27 05:16] LABS: BASOPHILS % (AUTO) 0.3 %; CALCIUM, IONIZED 1.21 mmol/L (1.15-1.33); HCT - HEMATOCRIT 33.2 % (37.0-47.0); HGB - HEMOGLOBIN 11.6 g/dL (12.0-16.0); LYMPHOCYTES % (AUTO) 3.3 %; MEAN CORPUSCULAR HEMOGLOBIN 31.2 pg (27.0-31.0); MEAN CORPUSCULAR HGB CONC 34.9 g/dL (32.0-36.0); MEAN CORPUSCULAR VOLUME 89.2 fL (81.0-99.0); MEAN PLATELET VOLUME 8.9 fL (7.9-10.8); MONOCYTES % (AUTO) 6.1 %; NEUTROPHILS % (AUTO) 87.9 %; PLT - PLATELET COUNT 207 10^3/uL (130-450); RED BLOOD COUNT 3.72 10^6/uL (4.20-5.40); VBG PH 7.369 (7.31-7.41); WHITE BLOOD COUNT 22.3 x10^3/uL (4.8-10.8)
[2021-09-27 05:20] LABS: ABNORMAL LYMPHS % (MANUAL) 0 %; BAND NEUTROPHILS % (MANUAL) 0 %
[2021-09-27] MEDS: busPIRone 5 MG TABLET PO SCH ×3 (05:28→21:09)
[2021-09-27 05:30] LABS: ALBUMIN 3.6 g/dL (3.2-5.5); ALBUMIN/GLOBULIN RATIO 1.3 (1.0-2.2); BILIRUBIN,TOTAL 1.1 mg/dL (0.2-1.0); CALCIUM 9.4 mg/dL (8.5-10.3); CREATININE 0.9 mg/dL (0.4-1.0); MAGNESIUM 2.1 mg/dL (1.7-2.8); PHOSPHORUS 4.2 mg/dL (2.5-4.6); TOTAL PROTEIN 6.3 g/dL (6.7-8.2)
[2021-09-27 05:31] LABS: POTASSIUM 6.1 mmol/L (3.5-5.0)
[2021-09-27 05:36] LABS: LYMPHOCYTES # (MANUAL) 0.7 10^3/uL (1.5-3.5); LYMPHOCYTES % (MANUAL) 3 %; MONOCYTES # (MANUAL) 1.6 10^3/uL (0.0-1.0); NEUTROPHILS # (MANUAL) 20.1 10^3/uL (1.5-6.6)
[2021-09-27 05:37] LABS: DIFFERENTIAL COMMENT MANUAL DIFFERENTIAL; PLATELET ESTIMATE, MANUAL NORMAL (130-450,000) (NORMAL); PLATELET MORPHOLOGY NORMAL APPEARANCE (NORMAL); RBC MORPHOLOGY (MULTIPLE) NORMAL APPEARANCE (NORMAL); WBC MORPHOLOGY (MULTIPLE) NORMAL APPEARANCE (NORMAL)
[2021-09-27] MEDS: PANTOPRAZOLE 40 MG TABLET PO SCH ×2 (06:27→16:51)
[2021-09-27] MEDS ORDERED: INSULIN REGULAR HUMAN 300 UNIT/3 ML VIAL IVP ONE (06:53)
[2021-09-27] MEDS ORDERED: DEXTROSE 50% ABBOJECT 25 GM/50 ML SYRINGE IVP ONE (06:54)
[2021-09-27] MEDS ORDERED: LORazepam 2 MG/ML VIAL IVP PRN (08:10)
[2021-09-27] MEDS: LEVALBUTEROL 1.25 MG/3 ML NEB INH SCH ×3 (08:19→20:28)
[2021-09-27] MEDS: BUDESONIDE 0.5 MG/2 ML NEB INH SCH ×2 (08:19→20:28)
--- NOTE | 2021-09-27 08:33 | XRAY Report ---
PROCEDURE: Chest 1 View X-Ray INDICATIONS: crackles, dyspnea TECHNIQUE: One view of the chest was acquired. COMPARISON: 09/25/2021, 09/24/2021. FINDINGS: Surgical changes and devices: Right internal jugular central venous catheter tip is in the region of SVC/right atrium. Lungs and pleura: No (pleural effusions or pneumothorax. Pulmonary vascular congestion is seen. Mild pulmonary edema is also noted. No definite focal infiltrate. Mediastinum: Tortuous thoracic aorta is seen. Heart size is mildly enlarged. Bones and chest wall: No suspicious bony lesions. Overlying soft tissues appear unremarkable. IMPRESSION: Congestive changes and mild pulmonary edema. No definite focal infiltrate. No significant pleural eff usion or gross pneumothorax. Reviewed by: Phu Ryan MD on 09/27/2021 8:32 AM PST Approved by: Phu Ryan MD on 09/27/2021 8:32 AM PST Station ID: [id number]
[2021-09-27] MEDS: INSULIN ASPART 300 UNIT/3 ML PEN SUBQ SCH ×4 (08:56→21:28)
[2021-09-27] MEDS: SODIUM CHLORIDE 1 GM TABLET PO SCH ×2 (08:56→16:51)
[2021-09-27] MEDS: FUROSEMIDE 40 MG TABLET PO SCH (08:57)
[2021-09-27] MEDS: NICOTINE 14 MG PATCH TOP SCH (08:57)
[2021-09-27] MEDS: polyethylene glycoL 3350 17 GM PACKET PO SCH (08:58)
[2021-09-27] MEDS: PROPRANOLOL 10 MG TABLET PO SCH ×2 (08:59→21:09)
[2021-09-27] MEDS: SODIUM CHLORIDE FLUSH 0.9% 10 ML SYRINGE IVP SCH ×2 (08:59→16:52)
[2021-09-27] MEDS: PRENATAL VITAMIN TABLET PO SCH (08:59)
[2021-09-27] MEDS: THIAMINE 100 MG TABLET PO SCH (09:00)
[2021-09-27] MEDS ORDERED: polyethylene glycoL 3350 17 GM PACKET PO SCH (09:00)
--- NOTE | 2021-09-27 10:19 | PROVIDER PROGRESS NOTE ---
Assessment/Plan - Problem List (1) Hyponatremia Assessment/Plan: Acute on chronic, secondary to hypovolemia and alcohol abuse. The patient typically has hyponatremia with sodium levels in the 120s. Upon admission her sodium was 108 and serum osmolaity was 228. She was on 3% normal saline for 2 days before being stopped on 09/25/21. Today her sodium is 127 and repeat sodium was 129. Plan: Continue 1g Sodium tablet PO twice daily. Recheck sodium level daily. Limit free water to 2000 mls/ day. (2) Alcoholism Assessment/Plan: Patient has a history of alcohol abuse and on admission reported that she drinks 3 beers daily. Her admission blood alcohol level was 110. She was started on CIWA protocol and has ranged 0-15. She is receiving 1mg of Ativan IVP 3 times la night. Today she is drowsy but able to answer simple questions. Her heart rate ranges 70-90s. She continues to have bilateral upper extremity tremors with fine motor activity. Plan: Discontinue Librium today. Continue to monitor for alcohol withdrawl with CIWA and give Ativan 0.5mg IVP prn for CIWA >8. Continue with vitamin B1 and multivitamin daily. (3) Hyperkalemia Assessment/Plan: The patient was initially hypokalemic and required replacement with potassium chloride. However, since 09/25/21 her potassium has been slowly increasing from 4.3>> 4.5>> 5.1 to 6.1 today. She was given 50mls of 50% Dextrose IVP and Regular Insulin 10 units IVP. Her BUN is 19, creatinine 0.9, and eGFR is 63. Her bedside telemetry shows a prolong DC interval at 0.22 sec. At home she takes Lasix 40mg PO twice daily. Her repeat potassium is 4.4 and her DC interval impr meir to 0.18 sec on the bedside telemetry. Plan: Resume her Lasix 40mg PO twice daily. Monitor her potassium daily. (4) Fall Qualifiers: Encounter type: initial encounter Qualified Code(s): W19.XXXA - Unspecified fall, initial encounter Assessment/Plan: Patient has a history of alcohol abuse and reported becoming dizzy after drinking and fell. This is most likely a mechanical fall related to alcohol intoxication. She has ecchymosis to bilateral arms and to the inferior lateral aspect of the left orbit. CT of head showed "No acute intracranial abnormalities or acute calvarial fracture. Study was degraded by moderate patient motion artifact". Patient is lethargic today. She is sitting up in the chair and having a difficult time maintaining eye contact. Plan: Discontinue Librium today. Continue to work with PT. Continue to monitor the patient and encourage ambulation with walker for safety. (5) Hypertension Assessment/Plan: Patient has a history of hypertension and takes amlodipine 10 mg PO daily, spironolactone 100mg PO daily, and Lasix 40mg PO daily. Her systolic blood pressure is ranging 120-150s with diastolic 60-90s. She was on Cardizem 120mg PO daily for two days due to sinus tachycardia with heart rate 130-160s. It was discontinued on 09/26/21 with heart rate remaining 70-90s. Her Propranolol 20mg PO twice daily for essential tremors was resumed on 09/26/20. Plan: Resume home Lasix 40mg PO daily. Continue Amlodipine 10mg PO daily for hypertension. Continue Propranolol 20mg PO twice daily for hypertension and essential tremors. Continue to hold spironolactone until sodium normalizes. (6) Essential tremor Assessment/Plan: Patient has a history of essential tremors and took Propranolol 20 mg at home. The dosage was confirmed by pharmacist 09/26/21. She continues to have bilateral upper extremity tremors with fine motor activities. Plan: Continue Propranolol 20mg PO twice daily for essential tremors and hypertension. - Current Meds Current Meds: Current Medications Generic Name Dose Route Start Last Admin Trade Name Freq PRN Reason Stop Dose Admin Acetaminophen 650 mg 09/23/21 13:10 09/26/21 17:05 Acetaminophen 325 Mg Tablet PO 650 mg Q4HR PRN Administration Pain 1 to 4 Budesonide 0.5 mg 09/26/21 21:00 09/27/21 08:19 Budesonide 0.5 Mg/2 Ml Neb INH 0.5 mg BID YENNY Administration Buspirone HCl 10 mg 09/26/21 22:00 09/27/21 05:28 Buspirone 5 Mg Tablet PO 10 mg TID YENNY Administration Furosemide 40 mg 09/27/21 09:00 09/27/21 08:57 Furosemide 40 Mg Tablet PO 40 mg DAILY YENNY Administration Insulin Aspart 3 - 11 unit 09/25/21 21:00 09/27/21 08:56 Insulin Aspart 300 Unit/3 Ml Pen SUBQ Not Given 0800,1200,1700,2100 YENNY Protocol Levalbuterol HCl 1.25 mg 09/25/21 13:00 09/27/21 08:19 Levalbuterol 1.25 Mg/3 Ml Neb INH 1.25 mg RTTID YENNY Administration Levalbuterol HCl 1.25 mg 09/25/21 16:59 09/26/21 23:55 Levalbuterol 1.25 Mg/3 Ml Neb INH 1.25 mg Q4H PRN Administration Shortness of Air/Wheezing Nicotine 1 patch 09/25/21 20:40 09/27/21 08:57 Nicotine 14 Mg Patch TOP 1 patch DAILY YENNY Administration Olanzapine 20 mg 09/23/21 22:51 09/26/21 21:14 Olanzapine Odt 5 Mg Tablet TL 20 mg QPM YENNY Administration Pantoprazole Sodium 40 mg 09/23/21 16:00 09/27/21 06:27 Pantoprazole 40 Mg Tablet PO 40 mg BIDAC YENNY Administration Polyethylene Glycol 17 gm 09/26/21 09:00 09/27/21 08:58 Polyethylene Glycol 3350 17 Gm Packet PO 17 gm DAILY YENNY Administration Multivit/Folic Acid/Iron 1 tab 09/24/21 09:00 09/27/21 08:59 Vitamin Tablet PO 1 tab DAILY YENNY Administration Propranolol HCl 20 mg 09/26/21 14:30 09/27/21 08:59 Propranolol 10 Mg Tablet PO 20 mg BID YENNY Administration Sodium Chloride 10 ml 09/23/21 17:00 09/27/21 08:59 Sodium Chloride Flush 0.9% 10 Ml Syringe IVP 10 ml 0100,0900,1700 YENNY Administration Sodium Chloride 10 ml 09/23/21 13:10 09/27/21 02:57 Sodium Chloride Flush 0.9% 10 Ml Syringe IVP 10 ml PRN PRN Administration NEEDED PER PROVIDER ORDERS Sodium Chloride 20 ml 09/25/21 23:22 09/27/21 07:08 Sodium Chloride Flush 0.9% 10 Ml Syringe IVP 20 ml PRN PRN Administration After Blood Draw Sodium Chloride 1 gm 09/26/21 08:00 09/27/21 08:56 Sodium Chloride 1 Gm Tablet PO 1 gm BIDWM YENNY Administration Thiamine HCl 100 mg 09/24/21 09:00 09/27/21 09:00 Thiamine 100 Mg Tablet PO 100 mg DAILY YENNY Administration - Lab Result Fish Bone Diagrams: 09/27/21 04:55 09/27/21 13:12 Subjective - Subjective Patient Reports: Other (Patient was sitting up in her chair with her eyes closed. She reports feeling "groggy".) Nursing Reports: Other (repetitive questions and lethargy. Patient is having difficulty keeping her eyes open.) Objective Vital Signs: Vital Signs - 24 hr 09/26/21 09/26/21 09/26/21 11:00 12:00 13:00 Temperature 36.6 C Heart Rate Heart Rate [ Activity] Heart Rate [ 118 H 122 H 115 H Monitoring electrodes] Heart Rate [ Sitting] Respiratory 16 18 16 Rate Blood Pressure [Activity] Blood Pressure 141/92 H 137/57 H 129/62 [Right Brachial artery] Blood Pressure [Sitting] O2 Saturation 98 97 98 09/26/21 09/26/21 09/26/21 13:20 14:00 14:15 Temperature Heart Rate 115 H Heart Rate [ 115 H 115 H Activity] Heart Rate [ 119 H Monitoring electrodes] Heart Rate [ 123 H 112 H Sitting] Respiratory 24 20 Rate Blood Pressure 155/67 H 155/67 H [Activity] Blood Pressure 155/61 H [Right Brachial artery] Blood Pressure 150/62 H 138/58 H [Sitting] O2 Saturation 97 09/26/21 09/26/21 09/26/21 15:00 16:00 17:00 Temperature 36.6 C Heart Rate Heart Rate [ Activity] Heart Rate [ 114 H 100 92 Monitoring electrodes] Heart Rate [ Sitting] Respiratory 21 18 20 Rate Blood Pressure [Activity] Blood Pressure 143/56 H 148/78 H 149/91 H [Right Brachial artery] Blood Pressure [Sitting] O2 Saturation 98 97 95 09/26/21 09/26/21 09/26/21 18:00 18:08 19:00 Temperature Heart Rate 86 Heart Rate [ Activity] Heart Rate [ 90 79 Monitoring electrodes] Heart Rate [ Sitting] Respiratory 24 20 20 Rate Blood Pressure [Activity] Blood Pressure 140/72 H 128/66 [Right Brachial artery] Blood Pressure [Sitting] O2 Saturation 96 95 09/26/21 09/26/21 09/26/21 20:00 21:00 21:01 Temperature 36.5 C Heart Rate 72 Heart Rate [ Activity] Heart Rate [ 82 69 Monitoring electrodes] Heart Rate [ Sitting] Respiratory 17 15 14 Rate Blood Pressure [Activity] Blood Pressure 154/66 H 97/60 [Right Brachial artery] Blood Pressure [Sitting] O2 Saturation 95 94 09/26/21 09/26/21 09/26/21 22:00 23:00 23:55 Temperature Heart Rate 60 Heart Rate [ Activity] Heart Rate [ 63 78 Monitoring electrodes] Heart Rate [ Sitting] Respiratory 14 15 14 Rate Blood Pressure [Activity] Blood Pressure 103/69 153/97 H [Right Brachial artery] Blood Pressure [Sitting] O2 Saturation 97 91 L 09/27/21 09/27/21 09/27/21 00:00 01:00 02:00 Temperature Heart Rate Heart Rate [ Activity] Heart Rate [ 60 57 L 58 L Monitoring electrodes] Heart Rate [ Sitting] Respiratory 15 13 20 Rate Blood Pressure [Activity] Blood Pressure 112/64 99/62 132/71 H [Right Brachial artery] Blood Pressure [Sitting] O2 Saturation 89 L 94 97 09/27/21 09/27/21 09/27/21 03:00 04:00 05:00 Temperature Heart Rate Heart Rate [ Activity] Heart Rate [ 67 74 Monitoring electrodes] Heart Rate [ Sitting] Respiratory 17 56 H 21 Rate Blood Pressure [Activity] Blood Pressure 115/57 L 92/59 L 135/70 H [Right Brachial artery] Blood Pressure [Sitting] O2 Saturation 92 13 L 92 09/27/21 09/27/21 09/27/21 06:27 07:00 08:00 Temperature 36.6 C Heart Rate Heart Rate [ Activity] Heart Rate [ 75 84 74 Monitoring electrodes] Heart Rate [ Sitting] Respiratory 75 H 17 22 Rate Blood Pressure [Activity] Blood Pressure 135/67 H 133/85 H 110/63 [Right Brachial artery] Blood Pressure [Sitting] O2 Saturation 93 91 L 95 09/27/21 09/27/21 08:23 09:00 Temperature Heart Rate 71 Heart Rate [ Activity] Heart Rate [ 73 Monitoring electrodes] Heart Rate [ Sitting] Respiratory 19 16 Rate Blood Pressure [Activity] Blood Pressure 105/56 L [Right Brachial artery] Blood Pressure [Sitting] O2 Saturation 96 Oxygen O2 Source Nasal cannula I&O (Last 24 Hrs): Intake and Output Totals x24h 09/25/21 09/26/21 09/27/21 23:59 23:59 23:59 Intake Total 2933.643 3609.700 780 Output Total 2615 2317 422 Balance 042.229 4116.700 358 General: Cooperative, No acute distress, Other (Lethargic) HEENT: Other (Eccymosis to inferior lateral aspect of the left orbit.) Neuro: Other (Patient is lethargic. She responds to simples questions but has difficulty keeping her eyes open.) Cardiovascular: Regular rate, Normal S1, Normal S2, No murmurs Respiratory: Rales (Rales to left base and faint rales to left upper lobe.) Abdomen: Normal bowel sounds, Soft, No tenderness Genitourinary: Other (Rosales catheter with clear yellow urine) Extremities: Other (Generalized non-pitting edema to lower extremities. B ilateral clubbing of finger and toe nails.) Comments/Notes: Scattered eccymosis to bilateral arms. Skin tear to right arm covered by dressing. - Results Results: Laboratory Results WBC 22.3 x10^3/uL (4.8-10.8) H 09/27/21 04:55 RBC 3.72 10^6/uL (4.20-5.40) L 09/27/21 04:55 Hgb 11.6 g/dL (12.0-16.0) L 09/27/21 04:55 Hct 33.2 % (37.0-47.0) L 09/27/21 04:55 MCV 89.2 fL (81.0-99.0) 09/27/21 04:55 MCH 31.2 pg (27.0-31.0) H 09/27/21 04:55 MCHC 34.9 g/dL (32.0-36.0) 09/27/21 04:55 RDW 15.0 % (12.0-15.0) 09/27/21 04:55 Plt Count 207 10^3/uL (130-450) 09/27/21 04:55 MPV 8.9 fL (7.9-10.8) 09/27/21 04:55 Neut # (Auto) Not Reportable 09/27/21 04:55 Lymph # (Auto) Not Reportable 09/27/21 04:55 [place] # (Auto) Not Reportable 09/27/21 04:55 Eos # (Auto) Not Reportable 09/27/21 04:55 Baso # (Auto) Not Reportable 09/27/21 04:55 Absolute Nucleated RBC Not Reportable 09/27/21 04:55 Total Counted 100 09/27/21 04:55 Band Neuts % (Manual) 0 % (0-10) 09/27/21 04:55 Abnorm Lymph % (Manual) 0 % 09/27/21 04:55 Nucleated RBC % Not Reportable 09/27/21 04:55 Neutrophils # (Manual) 20.1 10^3/uL (1.5-6.6) H 09/27/21 04:55 Lymphocytes # (Manual) 0.7 10^3/uL (1.5-3.5) L 09/27/21 04:55 Monocytes # (Manual) 1.6 10^3/uL (0.0-1.0) H 09/27/21 04:55 Eosinophils # (Manual) 0.0 10^3/uL (0-0.7) 09/27/21 04:55 Basophils # (Manual) 0.0 10^3/uL (0-0.1) 09/27/21 04:55 Differential Comment MANUAL DIFFERENTIAL 09/27/21 04:55 Manual Slide Review Indicated 09/23/21 11:45 WBC Morphology NORMAL APPEARANCE (NORMAL) 09/27/21 04:55 Platelet Estimate NORMAL (130-450,000) (NORMAL) 09/27/21 04:55 Platelet Morphology NORMAL APPEARANCE (NORMAL) 09/27/21 04:55 RBC Morph Micro Appear NORMAL APPEARANCE (NORMAL) 09/27/21 04:55 Bld Gas Analysis Time 0000 09/24/21 23:54 Sample Site RIGHT RADIAL 09/24/21 23:54 ABG pH 7.48 (7.35-7.45) H 09/24/21 23:54 ABG pCO2 36 mmHg (34-45) 09/24/21 23:54 ABG pO2 70 mmHg (80-100) L 09/24/21 23:54 ABG HCO3 26.6 mmol/L (22.0-26.0) H 09/24/21 23:54 ABG Total CO2 28.0 MMOL/L (21.0-29.0) 09/24/21 23:54 ABG O2 Saturation 95 % (94-98) 09/24/21 23:54 ABG Base Excess 3.0 mmol/L (-2.0-3.0) 09/24/21 23:54 Damian Test POSITIVE 09/24/21 23:54 VBG pH 7.369 (7.31-7.41) 09/27/21 04:55 Ionized Calcium 1.21 mmol/L (1.15-1.33) 09/27/21 04:55 FiO2 21.00 09/24/21 23:54 Sodium 127 mmol/L (135-145) L 09/27/21 04:55 Potassium 6.1 mmol/L (3.5-5.0) H* 09/27/21 04:55 Chloride 91 mmol/L (101-111) L 09/27/21 04:55 Carbon Dioxide 27 mmol/L (21-32) 09/27/21 04:55 Anion Gap 9.0 (6-13) 09/27/21 04:55 BUN 19 mg/dL (6-20) 09/27/21 04:55 Creatinine 0.9 mg/dL (0.4-1.0) 09/27/21 04:55 Estimated GFR (MDRD) 63 (>89) L 09/27/21 04:55 Glucose 161 mg/dL (70-100) H 09/27/21 04:55 Estimat Average Glucose 114 mg/dL (70-100) H 09/26/21 04:45 Hemoglobin A1c % 5.6 % (4.27-6.07) 09/26/21 04:45 Calcium 9.4 mg/dL (8.5-10.3) 09/27/21 04:55 Phosphorus 4.2 mg/dL (2.5-4.6) 09/27/21 04:55 Magnesium 2.1 mg/dL (1.7-2.8) 09/27/21 04:55 Total Bilirubin 1.1 mg/dL (0.2-1.0) H 09/27/21 04:55 AST 32 IU/L (10-42) 09/27/21 04:55 ALT 35 IU/L (10-60) 09/27/21 04:55 Alkaline Phosphatase 53 IU/L (42-121) 09/27/21 04:55 Troponin I High Sens 17.8 ng/L (2.3-14.8) H* 09/25/21 04:00 Total Protein 6.3 g/dL (6.7-8.2) L 09/27/21 04:55 Albumin 3.6 g/dL (3.2-5.5) 09/27/21 04:55 Globulin 2.7 g/dL (2.1-4.2) 09/27/21 04:55 Albumin/Globulin Ratio 1.3 (1.0-2.2) 09/27/21 04:55 Triglycerides 46 mg/dL (-149) 09/25/21 04:00 Cholesterol 134 mg/dL (-199) 09/25/21 04:00 LDL Cholesterol, Calc 59 mg/dL (-129) 09/25/21 04:00 VLDL Cholesterol 9 mg/dL 09/25/21 04:00 HDL Cholesterol 66 mg/dL (60-) 09/25/21 04:00 LDL/HDL Ratio 0.9 (<4.4) 09/25/21 04:00 Cholesterol/HDL Ratio 2.0 (<4.4) 09/25/21 04:00 Lipase 44 U/L (22-51) 09/23/21 11:45 Urine Color YELLOW 09/23/21 17:08 Urine Clarity HAZY (CLEAR) 09/23/21 17:08 Urine pH 6.0 PH (5.0-7.5) 09/23/21 17:08 Ur Specific [place] 1.015 (1.002-1.030) 09/23/21 17:08 Urine Protein TRACE mg/dL (NEGATIVE) 09/23/21 17:08 Urine Glucose (UA) 100 mg/dL (NEGATIVE) H 09/23/21 17:08 Urine Ketones 15 mg/dL (NEGATIVE) H 09/23/21 17:08 Urine Occult Blood MODERATE (NEGATIVE) H 09/23/21 17:08 Urine Nitrite NEGATIVE (NEGATIVE) 09/23/21 17:08 Urine Bilirubin NEGATIVE (NEGATIVE) 09/23/21 17:08 Urine Urobilinogen 4 E.U./dL (NORMAL) H 09/23/21 17:08 Ur Leukocyte Esterase NEGATIVE (NEGATIVE) 09/23/21 17:08 Urine RBC 0-5 /HPF (0-5) 09/23/21 17:08 Urine WBC 0-3 /HPF (0-5) 09/23/21 17:08 Ur Squamous Epith Cells RARE Squamous (<= Few) 09/23/21 17:08 Urine Bacteria Rare /HPF (None Seen) 09/23/21 17:08 Ur Microscopic Review INDICATED 09/23/21 17:08 Urine Culture Comments NOT INDICATED 09/23/21 17:08 Nasal Screen MRSA (PCR) NEGATIVE (NEGATIVE) 09/23/21 21:25 Ethyl Alcohol 110.6 mg/dL 09/23/21 11:45 SARS-CoV-2 (PCR) NOT DETECTED 09/23/21 12:50 ABX Reporting Has patient been on IV antibiotics over the past 48 hours?: No
[2021-09-27] MEDS: amLODIPine 5 MG TABLET PO SCH (12:10)
[2021-09-27 13:31] LABS: CALCIUM 8.9 mg/dL (8.5-10.3); POTASSIUM 4.4 mmol/L (3.5-5.0)
[2021-09-27] MEDS: OLANZapine ODT 5 MG TABLET TL SCH (21:09)
[2021-09-28] MEDS: SODIUM CHLORIDE FLUSH 0.9% 10 ML SYRINGE IVP SCH ×3 (01:09→16:32)
[2021-09-28] MEDS: SODIUM CHLORIDE FLUSH 0.9% 10 ML SYRINGE IVP PRN ×2 (05:09)
[2021-09-28 05:15] LABS: BASOPHILS % (AUTO) 0.2 %; CALCIUM, IONIZED 1.12 mmol/L (1.15-1.33); EOSINOPHILS # (AUTO) 0.1 10^3/uL (0.0-0.7); EOSINOPHILS % (AUTO) 1.6 %; HCT - HEMATOCRIT 30.4 % (37.0-47.0); HGB - HEMOGLOBIN 10.3 g/dL (12.0-16.0); LYMPHOCYTES # (AUTO) 0.5 10^3/uL (1.5-3.5); LYMPHOCYTES % (AUTO) 8.5 %; MEAN CORPUSCULAR HEMOGLOBIN 30.7 pg (27.0-31.0); MEAN CORPUSCULAR HGB CONC 33.9 g/dL (32.0-36.0); MEAN CORPUSCULAR VOLUME 90.7 fL (81.0-99.0); MEAN PLATELET VOLUME 8.4 fL (7.9-10.8); MONOCYTES # (AUTO) 0.7 10^3/uL (0.0-1.0); MONOCYTES % (AUTO) 11.3 %; NEUTROPHILS # (AUTO) 4.7 10^3/uL (1.5-6.6); NEUTROPHILS % (AUTO) 76.6 %; PLT - PLATELET COUNT 114 10^3/uL (130-450); RED BLOOD COUNT 3.35 10^6/uL (4.20-5.40); VBG PH 7.394 (7.31-7.41); WHITE BLOOD COUNT 6.1 x10^3/uL (4.8-10.8)
[2021-09-28 07:37] LABS: CALCIUM 8.8 mg/dL (8.5-10.3); CREATININE 0.9 mg/dL (0.4-1.0); POTASSIUM 4.7 mmol/L (3.5-5.0)
[2021-09-28] MEDS: LEVALBUTEROL 1.25 MG/3 ML NEB INH SCH ×2 (07:49→14:21)
[2021-09-28] MEDS: BUDESONIDE 0.5 MG/2 ML NEB INH SCH ×2 (07:50→19:20)
[2021-09-28] MEDS: PANTOPRAZOLE 40 MG TABLET PO SCH ×2 (08:08→16:32)
[2021-09-28] MEDS: busPIRone 5 MG TABLET PO SCH ×3 (08:08→21:46)
[2021-09-28] MEDS: INSULIN ASPART 300 UNIT/3 ML PEN SUBQ SCH ×4 (08:08→21:45)
--- NOTE | 2021-09-28 08:40 | PROVIDER PROGRESS NOTE ---
Assessment/Plan - Problem List (1) Hyponatremia Assessment/Plan: Acute on chronic, secondary to hypovolemia and alcohol abuse. The patient typically has hyponatremia with sodium levels in the 120s. Upon admission her sodium was 108 and serum osmolaity was 228. She was on 3% normal saline for 2 days before being stopped on 09/25/21. Today her sodium is 132. Plan: Continue 1g Sodium tablet PO twice daily. Recheck sodium level daily. Continue to limit free water to 1500 mls/ day. (2) Alcoholism Assessment/Plan: Patient has a history of alcohol abuse and on admission reported that she drinks 3 beers daily. Her admission blood alcohol level was 110. She was started on CIWA protocol and has ranged 0-15. She is receiving 0.5mg of Ativan IVP at 0100 for a CIWA of 10. Today she is again drowsy but slightly more wake and able to maintain eye contact while answering simple questions. Her heart rate ranges 70- 90s. She continues to have bilateral upper extremity tremors with fine motor activity. Plan: Discontinue CIWA monitor. Continue with vitamin B1 and multivitamin daily. (3) Hyperkalemia Assessment/Plan: The patient was initially hypokalemic and required replacement with potassium chloride. However, since 09/25/21 her potassium has been slowly increasing from 4.3>> 4.5>> 5.1 to 6.1 on 09/27/21. At that time she was given 50mls of 50% Dextrose IVP and Regular Insulin 10 units IVP. Her cardiac rhythm also showed a prolong PA interval at 0.22secs. Today her Potassium is 4.7, BUN 19, creatinine 0.9, and eGFR is 63. Her bedside telemetry returned to normal sinus rhythm with a PA interval at 0.20sec. At home she takes Lasix 40mg PO twice daily which was restarted yesterday. Plan: Continue Lasix 40mg PO twice daily. Monitor her potassium daily. (4) Fall Qualifiers: Encounter type: initial encounter Qualified Code(s): W19.XXXA - Unspecified fall, initial encounter Assessment/Plan: Patient has a history of alcohol abuse and reported becoming dizzy after drinking and fell. This is most likely a mechanical fall related to alcohol intoxication. She has ecchymosis to bilateral arms and to the inferior lateral aspect of the left orbit. CT of head showed "No acute intracranial abnormalities or acute calvarial fracture. Study was degraded by moderate patient motion artifact". Patient is drowsy today. She is sitting up in the chair having breakfast with improved eye contact compared to yesterday. Plan: Continue to work with PT. Continue to monitor the patient for safety and encourage ambulation with walker. (5) Hypertension Assessment/Plan: Patient has a history of hypertension and takes amlodipine 10 mg PO daily, spironolactone 100mg PO daily, and Lasix 40mg PO daily. Her systolic blood pressure is ranging 90-130s with diastolic 50-80s. She was on Cardizem 120mg PO daily for two days due to sinus tachycardia with heart rate 130-160s. It was discontinued on 09/26/21 with heart rate remaining 70-90s. Her Propranolol 20mg PO twice daily for essential tremors was resumed on 09/26/20. Plan: Continue Lasix 40mg PO daily. Continue Amlodipine 10mg PO daily for hypertension. Continue Propranolol 20mg PO twice daily for hypertension and essential tremors. Continue to hold spironolactone due to lower blood pressure. (6) Essential tremor Assessment/Plan: Patient has a history of essential tremors and took Propranolol 20 mg at home. The dosage was confirmed by pharmacist on 09/26/21. She continues to have bilateral upper extremity tremors with fine motor activities. Plan: Continue Propranolol 20mg PO twice daily for essential tremors and hypertension. - Current Meds Current Meds: Current Medications Generic Name Dose Route Start Last Admin Trade Name Freq PRN Reason Stop Dose Admin Acetaminophen 650 mg 09/23/21 13:10 09/26/21 17:05 Acetaminophen 325 Mg Tablet PO 650 mg Q4HR PRN Administration Pain 1 to 4 Amlodipine Besylate 10 mg 09/27/21 09:00 09/27/21 12:10 Amlodipine 5 Mg Tablet PO 10 mg DAILY YENNY Administration Budesonide 0.5 mg 09/26/21 21:00 09/28/21 07:50 Budesonide 0.5 Mg/2 Ml Neb INH 0.5 mg BID YENNY Administration Buspirone HCl 10 mg 09/26/21 22:00 09/28/21 08:08 Buspirone 5 Mg Tablet PO 10 mg TID YENNY Administration Furosemide 40 mg 09/27/21 09:00 09/27/21 08:57 Furosemide 40 Mg Tablet PO 40 mg DAILY YENNY Administration Insulin Aspart 3 - 11 unit 09/25/21 21:00 09/28/21 08:08 Insulin Aspart 300 Unit/3 Ml Pen SUBQ Not Given 0800,1200,1700,2100 YENNY Protocol Levalbuterol HCl 1.25 mg 09/25/21 13:00 09/28/21 07:49 Levalbuterol 1.25 Mg/3 Ml Neb INH 1.25 mg RTTID YENNY Administration Levalbuterol HCl 1.25 mg 09/25/21 16:59 09/26/21 23:55 Levalbuterol 1.25 Mg/3 Ml Neb INH 1.25 mg Q4H PRN Administration Shortness of Air/Wheezing Lorazepam 0.5 mg 09/27/21 08:10 09/28/21 01:10 Lorazepam 2 Mg/Ml Vial IVP 0.5 mg Q30M PRN Administration CIWA >8 Protocol Nicotine 1 patch 09/25/21 20:40 09/27/21 08:57 Nicotine 14 Mg Patch TOP 1 patch DAILY YENNY Administration Olanzapine 20 mg 09/23/21 22:51 09/27/21 21:09 Olanzapine Odt 5 Mg Tablet TL 20 mg QPM YENNY Administration Pantoprazole Sodium 40 mg 09/23/21 16:00 09/28/21 08:08 Pantoprazole 40 Mg Tablet PO 40 mg BIDAC YENNY Administration Polyethylene Glycol 17 gm 09/26/21 09:00 09/27/21 08:58 Polyethylene Glycol 3350 17 Gm Packet PO 17 gm DAILY YENNY Administration Multivit/Folic Acid/Iron 1 tab 09/24/21 09:00 09/27/21 08:59 Vitamin Tablet PO 1 tab DAILY YENNY Administration Propranolol HCl 20 mg 09/26/21 14:30 09/27/21 21:09 Propranolol 10 Mg Tablet PO 20 mg BID YENNY Administration Sodium Chloride 10 ml 09/23/21 17:00 09/28/21 01:09 Sodium Chloride Flush 0.9% 10 Ml Syringe IVP 30 ml 0100,0900,1700 YENNY Administration Sodium Chloride 10 ml 09/23/21 13:10 09/28/21 05:09 Sodium Chloride Flush 0.9% 10 Ml Syringe IVP 10 ml PRN PRN Administration NEEDED PER PROVIDER ORDERS Sodium Chloride 20 ml 09/25/21 23:22 09/28/21 05:09 Sodium Chloride Flush 0.9% 10 Ml Syringe IVP 20 ml PRN PRN Administration After Blood Draw Sodium Chloride 1 gm 09/26/21 08:00 09/27/21 16:51 Sodium Chloride 1 Gm Tablet PO 1 gm BIDWM YENNY Administration Thiamine HCl 100 mg 09/24/21 09:00 09/27/21 09:00 Thiamine 100 Mg Tablet PO 100 mg DAILY YENNY Administration - Lab Result Fish Bone Diagrams: 09/28/21 05:05 09/28/21 05:05 Subjective - Subjective Patient Reports: Feeling Better, No Complaints, Other (Sitting up in chair having breakfast.) Nursing Reports: Other (Patient is drowsy.) Objective Vital Signs: Vital Signs - 24 hr 09/27/21 09/27/21 09/27/21 08:00 08:23 09:00 Temperature 36.6 C Heart Rate 71 Heart Rate [ 74 73 Monitoring electrodes] Respiratory 22 19 16 Rate Blood Pressure 110/63 105/56 L [Right Brachial artery] O2 Saturation 95 96 09/27/21 09/27/21 09/27/21 10:00 11:00 12:00 Temperature 36.9 C Heart Rate Heart Rate [ 82 82 95 Monitoring electrodes] Respiratory 14 14 24 Rate Blood Pressure 120/62 104/52 L 156/66 H [Right Brachial artery] O2 Saturation 94 92 95 09/27/21 09/27/21 09/27/21:23 13:00 14:00 Temperature Heart Rate 96 Heart Rate [ 92 96 Monitoring electrodes] Respiratory 24 18 17 Rate Blood Pressure 108/52 L 121/65 [Right Brachial artery] O2 Saturation 93 94 09/27/21 09/27/21 09/27/21 15:00 16:00 17:00 Temperature 36.3 C L Heart Rate Heart Rate [ 90 82 89 Monitoring electrodes] Respiratory 20 20 18 Rate Blood Pressure 131/70 H 112/47 L 128/68 [Right Brachial artery] O2 Saturation 92 95 95 09/27/21 09/27/21 09/27/21 18:00 19:00 20:00 Temperature 36.7 C Heart Rate Heart Rate [ 80 93 91 Monitoring electrodes] Respiratory 20 21 19 Rate Blood Pressure 98/50 L 133/79 H 116/68 [Right Brachial artery] O2 Saturation 96 91 L 94 09/27/21 09/27/2109/27/22 20:28 21:00 22:00 Temperature Heart Rate 84 Heart Rate [ 83 93 Monitoring electrodes] Respiratory 15 19 22 Rate Blood Pressure 110/63 107/89 H [Right Brachial artery] O2 Saturation 93 92 09/27/21 09/28/21 09/28/21 23:00 00:00 01:00 Temperature Heart Rate Heart Rate [ 78 83 83 Monitoring electrodes] Respiratory 13 17 14 Rate Blood Pressure 90/53 L 101/55 L 136/77 H [Right Brachial artery] O2 Saturation 92 92 93 09/28/21 09/28/21 09/28/21 03:00 04:00 04:17 Temperature 36.9 C Heart Rate Heart Rate [ 90 81 78 Monitoring electrodes] Respiratory 23 14 15 Rate Blood Pressure 155/81 H 122/81 H 122/81 H [Right Brachial artery] O2 Saturation 91 L 92 92 09/28/21 09/28/21 09/28/21 05:00 06:00 07:00 Temperature Heart Rate Heart Rate [ 80 82 81 Monitoring electrodes] Respiratory 14 13 15 Rate Blood Pressure 101/61 116/58 L 104/56 L [Right Brachial artery] O2 Saturation 91 L 91 L 92 09/28/21 09/28/21 07:58 08:14 Temperature Heart Rate 84 Heart Rate [ 89 Monitoring electrodes] Respiratory 19 21 Rate Blood Pressure 138/76 H [Right Brachial artery] O2 Saturation 95 Oxygen O2 Source Nasal cannula I&O (Last 24 Hrs): Intake and Output Totals x24h 09/26/21 09/27/21 09/29/21 23:59 23:59 00:59 Intake Total 3609.700 1260 100 Output Total 2317 1840 600 Balance 1292.700 -580 -500 General: Oriented x3, Cooperative, No acute distress HEENT: Other (Eccymosis to inferior lateral aspect of the left orbit) Neuro: Oriented Times 3, Other (Drowsy, sitting up in chair. Remains eye contact and responds to simple questions.) Cardiovascular: Regular rate, Normal S1, Normal S2, No murmurs Respiratory: Chest non-tender, No respiratory distress, Rales, Rhonchi (Rales to bilateral bases and intermittent ronchi to right base.) Abdomen: Normal bowel sounds, Soft, No tenderness Genitourinary: Other (Rosales Catheter insitu with blood tinged urine.) Extremities: Other (1+ pitting edema to bilateral lower extremities. Bilateral clubbing of finger and toe nails.) Comments/Notes: Ecchymosis to bilateral arms and skin tear to right forearm covered with dress ing. - Results Results: Laboratory Results WBC 6.1 x10^3/uL (4.8-10.8) 09/28/21 05:05 RBC 3.35 10^6/uL (4.20-5.40) L 09/28/21 05:05 Hgb 10.3 g/dL (12.0-16.0) L 09/28/21 05:05 Hct 30.4 % (37.0-47.0) L 09/28/21 05:05 MCV 90.7 fL (81.0-99.0) 09/28/21 05:05 MCH 30.7 pg (27.0-31.0) 09/28/21 05:05 MCHC 33.9 g/dL (32.0-36.0) 09/28/21 05:05 RDW 15.0 % (12.0-15.0) 09/28/21 05:05 Plt Count 114 10^3/uL (130-450) L 09/28/21 05:05 MPV 8.4 fL (7.9-10.8) 09/28/21 05:05 Neut # (Auto) 4.7 10^3/uL (1.5-6.6) 09/28/21 05:05 Lymph # (Auto) 0.5 10^3/uL (1.5-3.5) L 09/28/21 05:05 Lucas # (Auto) 0.7 10^3/uL (0.0-1.0) 09/28/21 05:05 Eos # (Auto) 0.1 10^3/uL (0.0-0.7) 09/28/21 05:05 Baso # (Auto) 0.0 10^3/uL (0.0-0.1) 09/28/21 05:05 Absolute Nucleated RBC 0.00 x10^3/uL 09/28/21 05:05 Total Counted 100 09/27/21 04:55 Band Neuts % (Manual) 0 % (0-10) 09/27/21 04:55 Abnorm Lymph % (Manual) 0 % 03/12/22 04:55 Nucleated RBC % 0.0 /100WBC 09/28/21 05:05 Neutrophils # (Manual) 20.1 10^3/uL (1.5-6.6) H 09/27/21 04:55 Lymphocytes # (Manual) 0.7 10^3/uL (1.5-3.5) L 09/27/21 04:55 Monocytes # (Manual) 1.6 10^3/uL (0.0-1.0) H 09/27/21 04:55 Eosinophils # (Manual) 0.0 10^3/uL (0-0.7) 09/27/21 04:55 Basophils # (Manual) 0.0 10^3/uL (0-0.1) 09/27/21 04:55 Differential Comment MANUAL DIFFERENTIAL 09/27/21 04:55 Manual Slide Review Indicated 09/23/21 11:45 WBC Morphology NORMAL APPEARANCE (NORMAL) 09/27/21 04:55 Platelet Estimate NORMAL (130-450,000) (NORMAL) 09/27/21 04:55 Platelet Morphology NORMAL APPEARANCE (NORMAL) 09/27/21 04:55 RBC Morph Micro Appear NORMAL APPEARANCE (NORMAL) 09/27/21 04:55 Bld Gas Analysis Time 0000 09/24/21 23:54 Sample Site RIGHT RADIAL 09/24/21 23:54 ABG pH 7.48 (7.35-7.45) H 09/24/21 23:54 ABG pCO2 36 mmHg (34-45) 09/24/21 23:54 ABG pO2 70 mmHg (80-100) L 09/24/21 23:54 ABG HCO3 26.6 mmol/L (22.0-26.0) H 09/24/21 23:54 ABG Total CO2 28.0 MMOL/L (21.0-29.0) 09/24/21 23:54 ABG O2 Saturation 95 % (94-98) 09/24/21 23:54 ABG Base Excess 3.0 mmol/L (-2.0-3.0) 09/24/21 23:54 Damian Test POSITIVE 09/24/21 23:54 VBG pH 7.394 (7.31-7.41) 09/28/21 05:05 Ionized Calcium 1.12 mmol/L (1.15-1.33) L 09/28/21 05:05 FiO2 21.00 09/24/21 23:54 Sodium 132 mmol/L (135-145) L 09/28/21 05:05 Potassium 4.7 mmol/L (3.5-5.0) 09/28/21 05:05 Chloride 93 mmol/L (101-111) L 09/28/21 05:05 Carbon Dioxide 30 mmol/L (21-32) 09/28/21 05:05 Anion Gap 9.0 (6-13) 09/28/21 05:05 BUN 19 mg/dL (6-20) 09/28/21 05:05 Creatinine 0.9 mg/dL (0.4-1.0) 09/28/21 05:05 Estimated GFR (MDRD) 63 (>89) L 09/28/21 05:05 Glucose 110 mg/dL (70-100) H 09/28/21 05:05 Estimat Average Glucose 114 mg/dL (70-100) H 09/26/21 04:45 Hemoglobin A1c % 5.6 % (4.27-6.07) 09/26/21 04:45 Calcium 8.8 mg/dL (8.5-10.3) 09/28/21 05:05 Phosphorus 4.0 mg/dL (2.5-4.6) 09/28/21 05:05 Magnesium 2.0 mg/dL (1.7-2.8) 09/28/21 05:05 Total Bilirubin 1.1 mg/dL (0.2-1.0) H 09/27/21 04:55 AST 32 IU/L (10-42) 09/27/21 04:55 ALT 35 IU/L (10-60) 09/27/21 04:55 Alkaline Phosphatase 53 IU/L (42-121) 09/27/21 04:55 Troponin I High Sens 17.8 ng/L (2.3-14.8) H* 09/25/21 04:00 Total Protein 6.3 g/dL (6.7-8.2) L 09/27/21 04:55 Albumin 3.6 g/dL (3.2-5.5) 09/27/21 04:55 Globulin 2.7 g/dL (2.1-4.2) 09/27/21 04:55 Albumin/Globulin Ratio 1.3 (1.0-2.2) 09/27/21 04:55 Triglycerides 46 mg/dL (-149) 09/25/21 04:00 Cholesterol 134 mg/dL (-199) 09/25/21 04:00 LDL Cholesterol, Calc 59 mg/dL (-129) 09/25/21 04:00 VLDL Cholesterol 9 mg/dL 09/25/21 04:00 HDL Cholesterol 66 mg/dL (60-) 09/25/21 04:00 LDL/HDL Ratio 0.9 (<4.4) 09/25/21 04:00 Cholesterol/HDL Ratio 2.0 (<4.4) 09/25/21 04:00 Lipase 44 U/L (22-51) 09/23/21 11:45 Urine Color YELLOW 09/23/21 17:08 Urine Clarity HAZY (CLEAR) 09/23/21 17:08 Urine pH 6.0 PH (5.0-7.5) 09/23/21 17:08 Ur Specific [place] 1.015 (1.002-1.030) 09/23/21 17:08 Urine Protein TRACE mg/dL (NEGATIVE) 09/23/21 17:08 Urine Glucose (UA) 100 mg/dL (NEGATIVE) H 09/23/21 17:08 Urine Ketones 15 mg/dL (NEGATIVE) H 09/23/21 17:08 Urine Occult Blood MODERATE (NEGATIVE) H 09/23/21 17:08 Urine Nitrite NEGATIVE (NEGATIVE) 09/23/21 17:08 Urine Bilirubin NEGATIVE (NEGATIVE) 09/23/21 17:08 Urine Urobilinogen 4 E.U./dL (NORMAL) H 09/23/21 17:08 Ur Leukocyte Esterase NEGATIVE (NEGATIVE) 09/23/21 17:08 Urine RBC 0-5 /HPF (0-5) 09/23/21 17:08 Urine WBC 0-3 /HPF (0-5) 09/23/21 17:08 Ur Squamous Epith Cells RARE Squamous (<= Few) 09/23/21 17:08 Urine Bacteria Rare /HPF (None Seen) 09/23/21 17:08 Ur Microscopic Review INDICATED 09/23/21 17:08 Urine Culture Comments NOT INDICATED 09/23/21 17:08 Nasal Screen MRSA (PCR) NEGATIVE (NEGATIVE) 09/23/21 21:25 Ethyl Alcohol 110.6 mg/dL 09/23/21 11:45 SARS-CoV-2 (PCR) NOT DETECTED 09/23/21 12:50 ABX Reporting Has patient been on IV antibiotics over the past 48 hours?: No
[2021-09-28] MEDS: SODIUM CHLORIDE 1 GM TABLET PO SCH ×2 (09:56→16:32)
[2021-09-28] MEDS: amLODIPine 5 MG TABLET PO SCH (09:56)
[2021-09-28] MEDS: FUROSEMIDE 40 MG TABLET PO SCH (09:57)
[2021-09-28] MEDS: NICOTINE 14 MG PATCH TOP SCH (09:57)
[2021-09-28] MEDS: PROPRANOLOL 10 MG TABLET PO SCH ×2 (09:57→21:47)
[2021-09-28] MEDS: DOCUSATE SODIUM 250 MG CAPSULE PO SCH (09:57)
[2021-09-28] MEDS: PRENATAL VITAMIN TABLET PO SCH (09:57)
[2021-09-28] MEDS: polyethylene glycoL 3350 17 GM PACKET PO SCH (09:57)
[2021-09-28] MEDS: SENNA 8.6 MG TABLET PO SCH (09:58)
[2021-09-28] MEDS: THIAMINE 100 MG TABLET PO SCH (09:59)
[2021-09-28] MEDS ORDERED: LORazepam 0.5 MG TABLET PO PRN ×2 (10:23→20:55)
[2021-09-28] MEDS: ACETAMINOPHEN 325 MG TABLET PO PRN (18:07)
[2021-09-28] MEDS: LEVALBUTEROL 1.25 MG/3 ML NEB INH PRN (19:20)
[2021-09-28] MEDS ORDERED: ZOLPIDEM 5 MG TABLET PO PRN (20:55)
[2021-09-28] MEDS: OLANZapine ODT 5 MG TABLET TL SCH (21:46)
[2021-09-29] MEDS: SODIUM CHLORIDE FLUSH 0.9% 10 ML SYRINGE IVP SCH ×2 (00:28→08:29)
[2021-09-29] MEDS: SODIUM CHLORIDE FLUSH 0.9% 10 ML SYRINGE IVP PRN ×3 (00:28→07:35)
[2021-09-29] MEDS: LEVALBUTEROL 1.25 MG/3 ML NEB INH PRN (04:21)
[2021-09-29 05:21] LABS: CALCIUM, IONIZED 1.2 mmol/L (1.15-1.33); VBG PH 7.413 (7.31-7.41)
[2021-09-29 05:23] LABS: BASOPHILS % (AUTO) 0.2 %; EOSINOPHILS # (AUTO) 0.1 10^3/uL (0.0-0.7); EOSINOPHILS % (AUTO) 2.1 %; HCT - HEMATOCRIT 31.5 % (37.0-47.0); HGB - HEMOGLOBIN 10.8 g/dL (12.0-16.0); LYMPHOCYTES # (AUTO) 0.3 10^3/uL (1.5-3.5); LYMPHOCYTES % (AUTO) 7.7 %; MEAN CORPUSCULAR HEMOGLOBIN 31.4 pg (27.0-31.0); MEAN CORPUSCULAR HGB CONC 34.3 g/dL (32.0-36.0); MEAN CORPUSCULAR VOLUME 91.6 fL (81.0-99.0); MEAN PLATELET VOLUME 8.9 fL (7.9-10.8); MONOCYTES # (AUTO) 0.4 10^3/uL (0.0-1.0); NEUTROPHILS # (AUTO) 3.3 10^3/uL (1.5-6.6); NEUTROPHILS % (AUTO) 76.3 %; PLT - PLATELET COUNT 91 10^3/uL (130-450); RED BLOOD COUNT 3.44 10^6/uL (4.20-5.40); RED CELL DISTRIBUTION WIDTH 14.8 % (12.0-15.0); WHITE BLOOD COUNT 4.3 x10^3/uL (4.8-10.8)
[2021-09-29] MEDS: PANTOPRAZOLE 40 MG TABLET PO SCH ×2 (06:13→16:08)
[2021-09-29] MEDS: busPIRone 5 MG TABLET PO SCH ×2 (06:13→14:36)
--- NOTE | 2021-09-29 07:24 | DISCHARGE SUMMARY ---
Discharge Summary Admit Date: 09/23/21 Discharge Date: 09/29/21 Discharging Provider: Sruthi Kramer Primary Care Provider: Aminata Martinez Code Status: Attempt Resuscitation Condition at Discharge: Stable Discharge Disposition: 01 Home, Self Care - DIAGNOSES Admission Diagnoses: Hyponatremia Alcoholism Fall Hyperlipidemia Bipolar disorder Hypertension Leukocytosis Discharge Diagnoses with Status of Each Condition: Hyponatremia: Acute on chronic. Secondary to alcohol abuse. Resolved Alcoholism: Chronic. Patient advised on quitting. Fall: Acute. Mechanical. No fractures of the leg. Hyperlipidemia: Chronic. Continue home medication. Bipolar disorder: Chronic. Continue home medication Hypertension: Chronic. Continue home medication. Leukocytosis: Acute. Resolved. - HPI History of Present Illness: Patient is a 66-year-old female who appears much older than stated age. She presented to the ED after a fall. She had been drinking today. When she stood up to go to the bathroom, she became dizzy and fell. It was unwitnessed. She reports hitting her head. She has a significant laceration on her left small toe which has been bleeding. She has significant bruising in her upper extremities. In the ED work-up included a BMP which showed a sodium level of 108. She has chronically hyponatremia Likely secondary to alcohol abuse. However her sodium level typically is in the 120s. She was also noted to have a WBC of 19.5.As a result of her presentation she was admitted to the ICU for further management. At bedside she is mildly tremulous and appears very disheveled. She denies chest pain, dyspnea, abdominal pain, nausea, vomiting, fever or chills. She is also slightly tachycardic. - HOSPITAL COURSE Hospital Course: She was admitted to the ICU and started on hypertonic saline which was continued for 2 days and then discontinued. During the course of her hospital stay her sodium levels steadily creased and by the day of discharge it was 138. She went into alcohol withdrawal which required administration of Librium and Ativan per CIWA protocol. She has baseline essential tremor as well as she was tachycardic during her hospital stay. With resumption of her home propanolol these symptoms improved/resolved. Spine she experienced dyspnea secondary to COPD for which she was treated with DuoNeb breathing treatments, Xopenex, budesonide and Solu- Medrol IV. Her versus status improved steadily through the course of hospital stay. By the time of discharge her oxygen saturation was 94% on room air with a respiratory rate of 19. She was seen by physical therapy and determined to be in need of a walker to get around at home. It was also recommended that she go home with home health PT. This has been ordered. She was discharged in stable condition. - ALLERGIES Allergies/Adverse Reactions: Allergies Allergy/AdvReac Type Severity Reaction Status Date / Time No Known Drug Allergies Allergy Verified 09/23/21 11:10 - MEDICATIONS Home Medications: Ambulatory Orders Medication Instructions Recorded Confirmed Furosemide [Lasix] 40 mg PO DAILY 12/11/20 09/23/21 Spironolactone [Aldactone] 100 mg PO DAILY 12/11/20 09/23/21 amLODIPine [Norvasc] 10 mg PO DAILY 12/11/20 09/23/21 Buspirone HCl 10 mg PO TID 05/30/21 09/26/21 Potassium Chloride [Klor-Con 10] 10 meq PO DAILYWM 05/30/21 09/23/21 Fluticasone/Salmeterol [Advair 1 each IH BID #1 inh 08/25/21 09/23/21 250-50 Diskus] OLANZapine [Olanzapine] 20 mg PO QPM 15 Days #30 tablet 09/04/21 09/23/21 Albuterol Sulfate [Proair Hfa 1 - 2 puffs INH Q4H PRN 09/23/21 09/23/21 Inhaler] Propranolol [Inderal] 20 mg PO BID 09/26/21 09/26/21 - PHYSICAL EXAM AT DISCHARGE General Appearance: positive: No acute distress, Alert Eyes Bilateral: positive: PERRL, EOMI ENT: positive: No signs of dehydration Neck: positive: No JVD, Trachea midline Respiratory: positive: Chest non-tender, No respiratory distress, Other (mild crackles in lung bases) Cardiovascular: positive: Regular rate & rhythm, No murmur Abdomen: positive: Non-tender, No organomegaly, Nml bowel sounds, No distention. negative: Guarding, Rebound Back: positive: Nml inspection Skin: positive: No rash, Warm, Dry Extremities: positive: Non-tender, Full ROM, Pedal edema (+1) Neurologic/Psychiatric: positive: Oriented x3, Mood/affect nml - LABS Result Diagrams: 09/29/21 05:00 09/29/21 07:35 - TIME SPENT Time Spent in Discharge (Minutes): 20
--- NOTE | 2021-09-29 07:25 | Discharge Plan ---
Discharge Plan Problem Reviewed?: Yes Disposition: Home, Self Care Condition: Stable Diet: Regular Activity Restrictions: Activity as Tolerated Assistance Devices: Walker Weight Bearing: Full Weight Health Concerns: You were admitted on 09/23/2021 after a mechanical fall at home. Work-up in the emergency room room showed that your sodium level was 108. You were admitted to the ICU and started on hypertonic saline solution. This was maintained for 2 days. Over the course of your 5-day hospital stay, Your sodium levels steadily improved and by the day of discharge your sodium level was 138. In the course of your hospital stay you also had alcohol withdrawal for which CIWA protocol was applied. He also had some difficulties with breathing related to COPD She received breathing treatments and steroids. Seen by physical therapy undetermined to require a walker for ambulation. This was prescribed and supplied by the time of discharge. You are being discharged in stable condition. You were advised to quit drinking alcohol. The above plan was discussed with you you expressed understanding and were in agreement. You may follow-up with your primary care physician as needed. No Smoking: If you smoke, Please STOP! Call for help. Follow-up with: Aminata Martinez MD [Primary Care Provider] -
[2021-09-29] MEDS: BUDESONIDE 0.5 MG/2 ML NEB INH SCH (07:48)
[2021-09-29] MEDS: LEVALBUTEROL 1.25 MG/3 ML NEB INH SCH ×2 (07:49→13:16)
[2021-09-29] MEDS: INSULIN ASPART 300 UNIT/3 ML PEN SUBQ SCH ×2 (07:54→11:57)
[2021-09-29] MEDS: SODIUM CHLORIDE 1 GM TABLET PO SCH ×2 (07:55→16:08)
[2021-09-29 07:57] LABS: CALCIUM 8.9 mg/dL (8.5-10.3); CREATININE 0.9 mg/dL (0.4-1.0)
[2021-09-29] MEDS: polyethylene glycoL 3350 17 GM PACKET PO SCH (08:23)
[2021-09-29] MEDS: NICOTINE 14 MG PATCH TOP SCH (08:23)
[2021-09-29] MEDS: PROPRANOLOL 10 MG TABLET PO SCH (08:25)
[2021-09-29] MEDS: DOCUSATE SODIUM 250 MG CAPSULE PO SCH (08:25)
[2021-09-29] MEDS: THIAMINE 100 MG TABLET PO SCH (08:25)
[2021-09-29] MEDS: FUROSEMIDE 40 MG TABLET PO SCH (08:25)
[2021-09-29] MEDS: PRENATAL VITAMIN TABLET PO SCH (08:26)
[2021-09-29] MEDS: amLODIPine 5 MG TABLET PO SCH (08:26)
[2021-09-29] MEDS: SENNA 8.6 MG TABLET PO SCH (08:26)
[2021-09-29] MEDS ORDERED: SPIRONOLACTONE 25 MG TABLET PO SCH (09:00)
[2021-09-29 15:37] VITALS: BP 140/74
== END 2021-09-29 17:35 | disposition home or self-care (01) | DRG 641 ==
LOC: EDUNIT# → ED 11:00 → ICU 13:10 → MS2 09-28 09:32
PROVIDERS: ADMIT Internal Medicine; ATTEND Internal Medicine
PROC: 05HM33Z Insertion of Infusion Device into Right Internal Jugular Vein, Percutaneous Approach (ICD-10-PCS; principal; 2021-09-23)
DX: E87.1 Hypo-osmolality and hyponatremia (principal); F10.239 Alcohol dependence with withdrawal, unspecified; F31.9 Bipolar disorder, unspecified; S51.811A Laceration without foreign body of right forearm, initial encounter; S90.415A Abrasion, left lesser toe(s), initial encounter; I10 Essential (primary) hypertension; R07.9 Chest pain, unspecified; R27.0 Ataxia, unspecified; R41.82 Altered mental status, unspecified; R53.1 Weakness; D72.829 Elevated white blood cell count, unspecified; S40.021A Contusion of right upper arm, initial encounter; S40.022A Contusion of left upper arm, initial encounter; S91.115A Laceration without foreign body of left lesser toe(s) without damage to nail, initial encounter; F10.20 Alcohol dependence, uncomplicated; W19.XXXA Unspecified fall, initial encounter; Z20.822 Contact with and (suspected) exposure to COVID-19; E78.00 Pure hypercholesterolemia, unspecified; Z87.891 Personal history of nicotine dependence; E86.0 Dehydration; I48.91 Unspecified atrial fibrillation; J44.9 Chronic obstructive pulmonary disease, unspecified; K75.9 Inflammatory liver disease, unspecified; G25.0 Essential tremor; G47.10 Hypersomnia, unspecified; G47.30 Sleep apnea, unspecified; E87.5 Hyperkalemia; E87.6 Hypokalemia; R00.0 Tachycardia, unspecified; R94.31 Abnormal electrocardiogram [ECG] [EKG]; Z79.899 Other long term (current) drug therapy; Z80.9 Family history of malignant neoplasm, unspecified; Z82.5 Family history of asthma and other chronic lower respiratory diseases
CPT/HCPCS: 36415; 36600; 70450; 71045; 80048; 80053; 80061; 81001; 82330; 82803; 83036; 83690; 83735; 84100; 84484; 85025; 87150; 87635; 92610; 93005; 93306; 94640; 96374; 97161; 97165; 97530; 97535; 99285; 99291; 99406; A9270; G0480; J1815; J2060; J7626; 80320; 81003; 83721; 87086

== ENCOUNTER 2021-09-30 09:26 | Outpatient (CLI) | payer MEDICARE, MEDICAID | END 2021-09-30 09:27 | disposition critical access hospital (66) | LOC: EMS 09:26 | DX: R06.00 Dyspnea, unspecified (principal); R06.2 Wheezing; R26.0 Ataxic gait; R25.1 Tremor, unspecified | CPT/HCPCS: A0425; A0427 ==

== ENCOUNTER 2021-09-30 09:46 | Emergency (ER) | payer MEDICARE, MEDICAID ==
--- NOTE | 2021-09-30 10:35 | XRAY Report ---
PROCEDURE: Chest 2 View X-Ray INDICATIONS: cough, short of air TECHNIQUE: 2 view(s) of the chest. COMPARISON: Chest x-ray 09/17/2021 FINDINGS: Surgical changes and devices: None. Lungs and pleura: Increased pulmonary vascularity is present although slightly less prominent when co mpared to prior exam. Mediastinum: Mediastinal contours are normal. Heart size is normal. Bones and chest wall: No suspicious bony abnormalities. Soft tissues appear unremarkable. IMPRESSION: Mild appearance of increased vascularity, suggestive of edema. Reviewed by: Viki Castro MD on 09/30/2021 10:33 AM PDT Approved by: Viki Castro MD on 09/30/2021 10:33 AM PDT Station ID: [id number]
[2021-09-30] MEDS ORDERED: DEXAMETHASONE 10 MG/ML VIAL PO STA (10:42)
[2021-09-30] MEDS ORDERED: IPRATROPIUM/ALBUTEROL 3 ML NEB INH STA (10:42)
[2021-09-30] MEDS ORDERED: CHERRY SYRUP 10 ML UDC PO ONE (10:42)
--- NOTE | 2021-09-30 10:42 | ED Physician Documentation ---
PD HPI DYSPNEA - Stated complaint Stated Complaint: SOA - Chief complaint Chief Complaint: Resp - History obtained from History obtained from: Patient - History of Present Illness Timing - onset: How many days ago (4) Timing - onset during: Rest Timing - duration: Days (4) Timing - details: Gradual onset, Still present Inciting event(s): Out of meds Improved by: Inhaler/neb, Steroids Worsened by: Exertion Associated symptoms: Cough, Wheezing Similar symptoms before: Diagnosis (COPD) Recently seen: Emergency Dept - Additional information Additional information: 66-year-old female with a history of COPD has developed worsening of her shortness of breath over the past 4 days. She is out of her Advair. She feels that she will need a refill of some prednisone and her inhaler. She denies any change in the production of phlegm denies any chest pain. Denies any fever. Review of Systems Constitutional: denies: Fever Eyes: denies: Decreased vision Ears: denies: Ear pain Nose: reports: Congestion. denies: Rhinorrhea / runny nose Throat: denies: Sore throat Cardiac: denies: Chest pain / pressure, Palpitations Respiratory: reports: Dyspnea, Cough, Wheezing GI: denies: Abdominal Pain, Nausea, Vomiting : denies: Dysuria, Frequency, Discharge Skin: denies: Rash Musculoskeletal: denies: Neck pain, Back pain, Extremity pain Neurologic: denies: Generalized weakness, Focal weakness, Numbness PD PAST MEDICAL HISTORY - Past Medical History Cardiovascular: Hypertension, High cholesterol, Atrial fibrillation Respiratory: Asthma, COPD Neuro: Headaches, Tremors Endocrine/Autoimmune: None GI: Hepatitis 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 HEENT: None, Dental implants Psych: Bipolar disorder Musculoskeletal: None Derm: None - Past Surgical History Past Surgical History: Yes General: Other - Present Medications Home Medications: Ambulatory Orders Medication Instructions Recorded Confirmed Furosemide [Lasix] 40 mg PO DAILY 12/11/20 09/23/21 Spironolactone [Aldactone] 100 mg PO DAILY 12/11/20 09/23/21 amLODIPine [Norvasc] 10 mg PO DAILY 12/11/20 09/23/21 Buspirone HCl 10 mg PO TID 05/30/21 09/26/21 Potassium Chloride [Klor-Con 10] 10 meq PO DAILYWM 05/30/21 09/23/21 Fluticasone/Salmeterol [Advair 1 each IH BID #1 inh 08/25/21 09/23/21 250-50 Diskus] OLANZapine [Olanzapine] 20 mg PO QPM 15 Days #30 tablet 09/04/21 09/23/21 Albuterol Sulfate [Proair Hfa 1 - 2 puffs INH Q4H PRN 09/23/21 09/23/21 Inhaler] Propranolol [Inderal] 20 mg PO BID 09/26/21 09/26/21 Fluticasone/Salmeterol [Advair 1 each IH BID #1 inhaler 09/30/21 250-50 Diskus] predniSONE [Deltasone] 40 mg PO DAILY 5 Days #10 tablet 09/30/21 - Allergies Allergies/Adverse Reactions: Allergies Allergy/AdvReac Type Severity Reaction Status Date / Time No Known Drug Allergies Allergy Verified 09/30/21 09:56 - Social History Does the pt smoke?: No Smoking Status: Never smoker Does the pt drink ETOH?: Yes Does the pt have substance abuse?: No - Immunizations Immunizations are current?: Yes - POLST Patient has POLST: No POLST Status: Full Code PD ED PE NORMAL - Vitals Vital signs reviewed: Yes (Tachypneic with wide pulse pressure) - General General: Alert and oriented X 3, No acute distress, Well developed/nourished - HEENT HEENT: Atraumatic, PERRL, EOMI - Neck Neck: Supple, no meningeal sign, No bony TTP - Cardiac Cardiac: RRR, No murmur - Respiratory Respiratory: Other (Tachypneic with diminished breath sounds.) - Abdomen Abdomen: Normal bowel sounds, Soft, Non tender, Non distended, No organomegaly - Back Back: No CVA TTP, No spinal TTP - Derm Derm: Normal color, Warm and dry, No rash - Extremities Extremities: No deformity, No edema - Neuro Neuro: Alert and oriented X 3, retail team member 2-12 intact, No motor deficit, No sensory deficit, Normal speech Eye Opening: Spontaneous Motor: Obeys Commands Verbal: Oriented GCS Score: 15 - Psych Psych: Normal mood, Normal affect Results - Vitals Vitals: Vital Signs - 24 hr 09/30/21 09/30/21 09/30/21 09:56 11:05 11:41 Temperature 37.0 C Heart Rate 91 92 92 Respiratory 28 H 18 18 Rate Blood Pressure 113/57 L O2 Saturation 93 09/30/21 09/30/21 11:58 12:32 Temperature Heart Rate 97 93 Respiratory 28 H 30 H Rate Blood Pressure 136/70 H 137/73 H O2 Saturation 93 93 Oxygen O2 Source Room air - Rads (name of study) chest Radiology: Prelim report reviewed (Impression: Mild appearance of increased vascularity, suggestive of edema.), EMP read indepedently, See rad report PD MEDICAL DECISION MAKING - ED course Complexity details: reviewed results, re-evaluated patient, considered differential, d/w patient ED course: 66-year-old female with a history of COPD is given a DuoNeb treatment and 10 mg of dexamethasone on arrival she feels that her breathing is still in requirement of significant treatment. She is given a second treatment with albuterol. Chest x-ray is fairly unremarkable. She is not producing phlegm. She does have tight wheezes. Departure - Departure Disposition: 01 Home, Self Care Clinical Impression: COPD exacerbation Condition: Stable Instructions: ED COPD Flare Follow-Up: Aminata Martinez MD [Physician No Access] - Prescriptions: Fluticasone/Salmeterol [Advair 250-50 Diskus] 1 each IH BID #1 inhaler predniSONE [Deltasone] 40 mg PO DAILY 5 Days #10 tablet
[2021-09-30] MEDS ORDERED: ALBUTEROL NEB 2.5 MG/3 ML INH STA (11:35)
[2021-09-30] MEDS ORDERED: NICOTINE 14 MG PATCH TOP STA (14:04)
[2021-09-30 14:47] VITALS: BP 128/90
== END 2021-09-30 14:47 | disposition home or self-care (01) ==
LOC: EDUNIT# → ED 09:46
DX: J44.1 Chronic obstructive pulmonary disease with (acute) exacerbation (principal)
CPT/HCPCS: 71046; 94640; 99284; A9270

== ENCOUNTER 2021-11-27 18:14 | Outpatient (CLI) | payer MEDICARE, MEDICAID | END 2021-11-27 18:15 | disposition critical access hospital (66) | LOC: EMS 18:14 | DX: R53.1 Weakness (principal); R29.91 Unspecified symptoms and signs involving the musculoskeletal system; R06.00 Dyspnea, unspecified; I10 Essential (primary) hypertension | CPT/HCPCS: A0425; A0429 ==

== ENCOUNTER 2021-11-27 18:36 | Emergency (ER) | payer MEDICARE, MEDICAID ==
[2021-11-27 19:08] LABS: BASOPHILS % (AUTO) 0.4 %; EOSINOPHILS # (AUTO) 0.2 10^3/uL (0.0-0.7); EOSINOPHILS % (AUTO) 1.8 %; HCT - HEMATOCRIT 43.4 % (37.0-47.0); HGB - HEMOGLOBIN 15.3 g/dL (12.0-16.0); LYMPHOCYTES # (AUTO) 0.7 10^3/uL (1.5-3.5); LYMPHOCYTES % (AUTO) 7.9 %; MEAN CORPUSCULAR HEMOGLOBIN 29.4 pg (27.0-31.0); MEAN CORPUSCULAR HGB CONC 35.3 g/dL (32.0-36.0); MEAN CORPUSCULAR VOLUME 83.3 fL (81.0-99.0); MEAN PLATELET VOLUME 9.1 fL (7.9-10.8); MONOCYTES # (AUTO) 0.6 10^3/uL (0.0-1.0); MONOCYTES % (AUTO) 6.6 %; NEUTROPHILS # (AUTO) 7.4 10^3/uL (1.5-6.6); NEUTROPHILS % (AUTO) 82.6 %; PLT - PLATELET COUNT 163 10^3/uL (130-450); RED BLOOD COUNT 5.21 10^6/uL (4.20-5.40); RED CELL DISTRIBUTION WIDTH 13.4 % (12.0-15.0); WHITE BLOOD COUNT 8.9 x10^3/uL (4.8-10.8)
--- NOTE | 2021-11-27 19:10 | ED Physician Documentation ---
History of Present Illness - Stated complaint Stated Complaint: ANXIETY - Chief complaint Chief Complaint: Neuro - History obtained from History obtained from: Patient - History of Present Illness Timing: Unknown Pain level max: 0 Pain level now: 0 - Additonal information Additional information: Per EMS report and ED risk and insurance consultant note, patient called 911 due to "feeling funny" after drinking THC. On my HPI, patient is awake and alert, conversant but says she does not know why she is here. She is oriented x 3. She initially tells me she did drink some THC but not today. When I ask her when she drank the THC, she then says "about two hours ago". She denies any pain, denies recent fall/injury. She has no c/o on my HPI Review of Systems Constitutional: reports: Reviewed and negative Eyes: reports: Reviewed and negative Cardiac: reports: Reviewed and negative Respiratory: reports: Reviewed and negative GI: reports: Reviewed and negative : reports: Reviewed and negative Musculoskeletal: reports: Reviewed and negative Neurologic: denies: Generalized weakness, Focal weakness, Numbness, Headache, Head injury, LOC PD PAST MEDICAL HISTORY - Past Medical History Cardiovascular: Hypertension, High cholesterol, Atrial fibrillation Respiratory: Asthma, COPD Neuro: Headaches, Tremors Endocrine/Autoimmune: None GI: Hepatitis 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 HEENT: None, Dental implants Psych: Bipolar disorder Musculoskeletal: None Derm: None - Past Surgical History Past Surgical History: Yes General: Other - Present Medications Home Medications: Ambulatory Orders Medication Instructions Recorded Confirmed Furosemide [Lasix] 40 mg PO DAILY 12/11/20 09/23/21 Spironolactone [Aldactone] 100 mg PO DAILY 12/11/20 09/23/21 amLODIPine [Norvasc] 10 mg PO DAILY 12/11/20 09/23/21 Buspirone HCl 10 mg PO TID 05/30/21 09/26/21 Potassium Chloride [Klor-Con 10] 10 meq PO DAILYWM 05/30/21 09/23/21 Fluticasone/Salmeterol [Advair 1 each IH BID #1 inh 08/25/21 09/23/21 250-50 Diskus] OLANZapine [Olanzapine] 20 mg PO QPM 15 Days #30 tablet 09/04/21 09/23/21 Albuterol Sulfate [Proair Hfa 1 - 2 puffs INH Q4H PRN 09/23/21 09/23/21 Inhaler] Propranolol [Inderal] 20 mg PO BID 09/26/21 09/26/21 Fluticasone/Salmeterol [Advair 1 each IH BID #1 inhaler 09/30/21 250-50 Diskus] predniSONE [Deltasone] 40 mg PO DAILY 5 Days #10 tablet 09/30/21 - Allergies Allergies/Adverse Reactions: Allergies Allergy/AdvReac Type Severity Reaction Status Date / Time No Known Drug Allergies Allergy Verified 09/30/21 09:56 - Social History Does the pt smoke?: No Smoking Status: Never smoker Does the pt drink ETOH?: Yes Does the pt have substance abuse?: No - Immunizations Immunizations are current?: Yes - POLST Patient has POLST: No POLST Status: Full Code PD ED PE NORMAL - Vitals Vital signs reviewed: Yes - General General: Alert and oriented X 3, No acute distress, Well developed/nourished - HEENT HEENT: Atraumatic, PERRL, EOMI - Neck Neck: Supple, no meningeal sign - Cardiac Cardiac: RRR (regular rhythm with occasional skipped beat), No murmur - Respiratory Respiratory: No respiratory distress, Other (end-expiratory wheeze on right but good air movement, no rhonchi) - Abdomen Abdomen: Soft, Non tender - Neuro Neuro: Alert and oriented X 3, holter technician 2-12 intact, No motor deficit, No sensory deficit, Normal speech Eye Opening: Spontaneous Motor: Obeys Commands Verbal: Oriented (patient is oriented x3 (answers orientation questions rapidly and accurately), but has difficulty with recall at times during H+P) GCS Score: 15 - Psych Psych: Normal mood, Normal affect Results - Vitals Vitals: Oxygen O2 Source Room air - Labs Labs: Laboratory Tests 11/27/21 11/27/21 11/27/21 19:01 19:01 20:30 WBC 8.9 RBC 5.21 Hgb 15.3 Hct 43.4 MCV 83.3 MCH 29.4 MCHC 35.3 RDW 13.4 Plt Count 163 MPV 9.1 Neut # (Auto) 7.4 H Lymph # (Auto) 0.7 L Towns # (Auto) 0.6 Eos # (Auto) 0.2 Baso # (Auto) 0.0 Absolute Nucleated RBC 0.00 Nucleated RBC % 0.0 Sodium 134 L Potassium 2.7 L Chloride 95 L Carbon Dioxide 26 Anion Gap 13.0 BUN 13 Creatinine 1.0 Estimated GFR (MDRD) 55 L Glucose 217 H Calcium 9.0 Magnesium 1.9 Total Bilirubin 0.8 AST 22 ALT 16 Alkaline Phosphatase 57 Total Protein 7.8 Albumin 4.5 Globulin 3.3 Albumin/Globulin Ratio 1.4 Lipase 37 Urine Color Urine Clarity Urine pH Ur Specific [place] Urine Protein Urine Glucose (UA) Urine Ketones Urine Occult Blood Urine Nitrite Urine Bilirubin Urine Urobilinogen Ur Leukocyte Esterase Ur Microscopic Review Urine Culture Comments Salicylates < 6.0 Urine Opiates Screen NEGATIVE Ur Oxycodone Screen NEGATIVE Urine Methadone Screen NEGATIVE Ur Propoxyphene Screen NEGATIVE Acetaminophen < 10 L Ur Barbiturates Screen NEGATIVE Ur Tricyclics Screen NEGATIVE Ur Phencyclidine Scrn NEGATIVE Ur Amphetamine Screen NEGATIVE U Methamphetamines Scrn NEGATIVE U Benzodiazepines Scrn NEGATIVE Urine Cocaine Screen NEGATIVE U Cannabinoids Screen POSITIVE H Ethyl Alcohol < 5.0 11/27/21 20:30 WBC RBC Hgb Hct MCV MCH MCHC RDW Plt Count MPV Neut # (Auto) Lymph # (Auto) Towns # (Auto) Eos # (Auto) Baso # (Auto) Absolute Nucleated RBC Nucleated RBC % Sodium Potassium Chloride Carbon Dioxide Anion Gap BUN Creatinine Estimated GFR (MDRD) Glucose Calcium Magnesium Total Bilirubin AST ALT Alkaline Phosphatase Total Protein Albumin Globulin Albumin/Globulin Ratio Lipase Urine Color YELLOW Urine Clarity CLEAR Urine pH 6.0 Ur Specific [place] 1.020 Urine Protein NEGATIVE Urine Glucose (UA) NEGATIVE Urine Ketones NEGATIVE Urine Occult Blood TRACE-INTA Urine Nitrite NEGATIVE Urine Bilirubin NEGATIVE Urine Urobilinogen 0.2 (NORMAL) Ur Leukocyte Esterase NEGATIVE Ur Microscopic Review NOT INDICATED Urine Culture Comments NOT INDICATED Salicylates Urine Opiates Screen Ur Oxycodone Screen Urine Methadone Screen Ur Propoxyphene Screen Acetaminophen Ur Barbiturates Screen Ur Tricyclics Screen Ur Phencyclidine Scrn Ur Amphetamine Screen U Methamphetamines Scrn U Benzodiazepines Scrn Urine Cocaine Screen U Cannabinoids Screen Ethyl Alcohol PD MEDICAL DECISION MAKING - ED course Complexity details: reviewed results, re-evaluated patient, considered differential, d/w patient ED course: Hypokalemia with potassium level of 2.7 for which she is given KCL PO. Patient remains slightly confused prior to discharge and thus unsure if she is on spirinolactone ([facility] indicates she has been on this medication and provides a warning screen when I tried to order IV potassium). I also see that she has had previous episodes of both hypokalemia and hyperkalemia; as it is unclear if she still takes a potassium-sparing diuretic, she is given the one-time dose of KCL PO and no intravenous potassium and advised to follow up with her primary care provider regarding the low potassium. This was typed into her discharge instructions. She is in NAD during ED stay. There are no other concerning findings on tonight's tests (and the hypokalemia is an incidental finding). The most plausible explanation at this time is the use of the THC that she drank and she is advised to avoid this in the future. Return precautions discussed. Departure - Departure Disposition: 01 Home, Self Care Clinical Impression: Hypokalemia, Confusion Condition: Good Instructions: ED Potassium Deficiency Comments: Your potassium was low tonight. You were given a dose of potassium orally tonight for this. It is very important that you follow up with your primary care provider for reevaluation not only of the symptoms you had tonight, but for a recheck of your potassium level. It can be very dangerous if it gets too low. Tonight's test results do not indicate why you aren't feeling well tonight, but as we discussed, I suspect the marijuana (THC, CBD) is the reason for your confusion. I would advise you to not use this substance again. Discharge Date/Time: 11/27/21 22:14
[2021-11-27 19:22] LABS: ACETAMINOPHEN < 10 ug/mL (10-30); ALBUMIN 4.5 g/dL (3.2-5.5); ALBUMIN/GLOBULIN RATIO 1.4 (1.0-2.2); ALKALINE PHOSPHATASE 57 IU/L (42-121); ALT ALANINE AMINOTRANSFERASE 16 IU/L (10-60); AST ASPARTATE AMINOTRANSFERASE 22 IU/L (10-42); BILIRUBIN,TOTAL 0.8 mg/dL (0.2-1.0); BUN - BLOOD UREA NITROGEN 13 mg/dL (6-20); CARBON DIOXIDE - CO2 26 mmol/L (21-32); CHLORIDE 95 mmol/L (101-111); ETOH - ETHANOL < 5.0 mg/dL; GFR - MDRD 55 (>89); GLUCOSE 217 mg/dL (70-100); LIPASE 37 U/L (22-51); MAGNESIUM 1.9 mg/dL (1.7-2.8); POTASSIUM 2.7 mmol/L (3.5-5.0); SALICYLATE < 6.0 mg/dL; SODIUM 134 mmol/L (135-145); TOTAL PROTEIN 7.8 g/dL (6.7-8.2)
[2021-11-27] MEDS ORDERED: SODIUM CHLORIDE 0.9% 500 ML IV STA (20:03)
[2021-11-27] MEDS ORDERED: POTASSIUM CHLORIDE 20 MEQ TABLET PO STA (20:04)
[2021-11-27 20:37] LABS: MUDS CUTOFF CONCENTRATIONS CUTOFF CONC BELOW:
[2021-11-27 20:46] LABS: BILIRUBIN,URINE NEGATIVE (NEGATIVE); GLUCOSE, URINE (UA) NEGATIVE (NEGATIVE); KETONES,URINE (UA) NEGATIVE (NEGATIVE); LEUKOCYTE ESTERASE, URINE NEGATIVE (NEGATIVE); NITRITE,URINE NEGATIVE (NEGATIVE); OCCULT BLOOD,URINE TRACE-INTA (NEGATIVE); PROTEIN,URINE NEGATIVE (NEGATIVE); UROBILINOGEN,URINE 0.2 (NORMAL) E.U./dL (NORMAL)
[2021-11-27 20:48] LABS: AMPHETAMINE SCREEN,URINE NEGATIVE (NEGATIVE); BARBITURATE SCREEN,UR NEGATIVE (NEGATIVE); BENZODIAZEPINES SCREEN, URINE NEGATIVE (NEGATIVE); CLARITY,URINE CLEAR (CLEAR); COCAINE SCREEN URINE NEGATIVE (NEGATIVE); METHADONE SCREEN, URINE NEGATIVE (NEGATIVE); METHAMPHETAMINES SCREEN, URINE NEGATIVE (NEGATIVE); OPIATE SCREEN, URINE NEGATIVE (NEGATIVE); OXYCODONE SCREEN, URINE NEGATIVE (NEGATIVE); PROPOXYPHENE SCREEN, URINE NEGATIVE (NEGATIVE); THC CANNABINOID SCREEN, URINE POSITIVE (NEGATIVE); TRICYCLIC ANTIDEPRESSANT,URINE NEGATIVE (NEGATIVE)
[2021-11-27 22:14] VITALS: BP 164/90
== END 2021-11-27 22:14 | disposition home or self-care (01) ==
LOC: EDUNIT# → ED 18:36
DX: E87.6 Hypokalemia (principal); R41.0 Disorientation, unspecified; I10 Essential (primary) hypertension
CPT/HCPCS: 36415; 80053; 80306; 80307; 80320; 80329; 81001; 81003; 83690; 83735; 85025; 87086; 96360; 96361; 99282

== ENCOUNTER 2022-03-26 12:05 | Outpatient (CLI) | payer MEDICARE, MEDICAID | END 2022-03-26 12:06 | disposition E | LOC: EMS 12:05 | DX: I46.9 Cardiac arrest, cause unspecified (principal) ==